=== PATIENT | male | born 1965 | race Caucasian/White ===

== ENCOUNTER 2019-03-20 11:56 | Observation (INO) ==
[2019-03-20] MEDS ORDERED: PIPERACILL/TAZOBAC CONSULT ACTIVE PRN ×2 (12:44→16:54)
[2019-03-20] MEDS ORDERED: VANCOMYCIN CONSULT ACTIVE PRN ×2 (12:44→17:56)
[2019-03-20] MEDS ORDERED: SODIUM CHLORIDE 0.9% 1000ML 1,000 ML IV ONE (12:44)
[2019-03-20] MEDS ORDERED: VANCOMYCIN HCL 2,750 MG in SODIUM CHLORIDE 0.9% 500 ML IV ONE ×2 (12:44→18:00)
[2019-03-20] MEDS ORDERED: PIPERACILLIN/TAZOBACTAM 4.5 GM/120 ML BAG IV ONE (12:44)
--- NOTE | 2019-03-20 13:12 | XRay Report ---
XR chest 1V portable HISTORY: Sepsis COMPARISON: None. FINDINGS: The lungs are clear. Cardiac silhouette is normal in size. No pleural effusions. No pneumot horax. IMPRESSION: No acute process. Electronically signed by: Keith Dunham M.D. 03/20/2019 1:11 PM
[2019-03-20 13:14] LABS: Basophils # (auto) 0.06 K/uL (0-0.2); Basophils % (auto) 0.7 %; Eosinophils # (auto) 0.12 K/uL (0-0.5); Eosinophils % (auto) 1.4 %; Hematocrit (blood only) 42.1 % (42-52); Hemoglobin 13.8 g/dL (14.0-18.0); Immature Granulocytes # (auto) 0.02 K/uL (0.00-0.02); Immature Granulocytes % (auto) 0.2 %; Lymphocytes # (auto) 2.11 K/uL (1.2-3.4); Lymphocytes % (auto) 25.5 %; Mean Corpuscular Hgb Conc 32.8 g/dL (32-36); Mean Corpuscular Volume 83.2 fL (80-100); Mean Platelet Volume 9.6 fL (7.4-10.4); Monocytes # (auto) 0.51 K/uL (0.11-0.59); Monocytes % (auto) 6.2 %; Neutrophils # (auto) 5.47 K/uL (1.4-6.5); Platelet Count 225 K/uL (130-400); RDW Coefficient of Variation 13.6 % (11.5-14.5); RDW Standard Deviation 41.1 fL (36.4-46.3); Red Blood Count 5.06 M/uL (4.7-6.1); White Blood Count 8.29 K/uL (4.8-10.8)
[2019-03-20 13:23] LABS: Partial Thromboplastin Ratio 1.1; Partial Thromboplastin Time 30.9 Seconds (21.0-31.0); Prothrombin Time 9.9 Seconds (9.0-12.0)
[2019-03-20 13:38] LABS: Albumin Level 3.7 gm/dl (3.4-5.0); BUN Creatinine Ratio 9.9 (10-20); Calcium 9.4 mg/dl (8.5-10.1); Creatinine Clr Calc Pharmacy 116.6 ml/min; Est GFR (African American) 86.2; Est GFR (Non-African American) 74.4; Magnesium 2.3 mg/dl (1.8-2.4); Potassium 4.5 mmol/L (3.5-5.1)
[2019-03-20 13:41] LABS: Albumin Globulin Ratio 0.8 (0.9-2); Bilirubin,Total 0.4 mg/dl (0.2-1); Globulin 4.5 gm/dl (2.5-4.0); Phosphorus 3.6 mg/dl (2.5-4.9); Total Protein 8.2 gm/dl (6.4-8.2)
[2019-03-20 13:45] LABS: Appearance Urine Clear (Clear); Bilirubin Urine Negative (Negative); Blood Urine Negative (Negative); Color Urine Yellow; Glucose Urine UA Negative (Negative); Ketones Urine Negative (Negative); Leukocyte Esterase Urine Negative (Negative); Nitrite Urine Negative (Negative); Protein Urine Negative (Negative); Specific Gravity Urine 1.017 (1.000-1.030); Urobilinogen Urine Negative (Negative)
[2019-03-20] MEDS ORDERED: OPTIRAY 320 125ml IV PRN (14:04)
--- NOTE | 2019-03-20 14:28 | CT Scan Report ---
CT SCAN OF THE ABDOMEN AND PELVIS WITH IV CONTRAST CLINICAL HISTORY: Lower abdominal swelling and induration. COMPARISON STUDY: No priors. TECHNIQUE: Following the IV administration of 117 cc of Optiray 320, CT scan of the abdomen and pelv is is performed from the lung bases to the proximal femora. Images are reviewed in the axial, sagitta l, and coronal planes. IV contrast was administered without complication. A dose lowering technique w as utilized adhering to the principles of ALARA. The examination is degraded by large body habitus, a nd by streak artifact from the body wall abutting the CT gantry. CT DOSE: 1791.20 mGy.cm FINDINGS: Lung bases: The heart is normal in size and without pericardial effusion. The lung bases are clear. T here is a small hiatal hernia. Liver: The contrast-enhanced liver is normal in size, contour, and attenuation. There is no intrahepa tic biliary ductal dilatation. The hepatic veins and portal veins are patent. Gallbladder: Unremarkable. Spleen: Normal in size and attenuation. Pancreas: Unremarkable. Adrenal glands: Unremarkable. Kidneys: The contrast enhanced kidneys are normal in size and without hydronephrosis. The kidneys enh ance symmetrically. Abdominal vasculature: The abdominal aorta is normal in course and caliber. Bowel: The small bowel and colon are normal in course and caliber. The appendix is normal as imaged. Peritoneum: There is no intraperitoneal free air or abdominal ascites. There is a small fat-containin g umbilical hernia. Lymphadenopathy: None. Pelvic viscera: The bladder, prostate, and seminal vesicles are normal as visualized. Skeletal structures: No lytic or blastic lesions are seen. Soft tissues: There is dermal thickening identified within the lower abdominal pannus, right greater than left with associated inflammatory change in the underlying fat. There is phlegmonous change iden tified at the dural surface on the right which measures up to 1.0 cm in thickness. No organized fluid collection is seen to suggest abscess. IMPRESSION: 1. There are no acute infectious or inflammatory findings in the abdomen or pelvis. 2. Findings suggest cellulitis of the lower abdominal pannus, with phlegmonous change on the right. C linical correlation will be required. 3. No organized fluid collection is seen to indicate abscess. Electronically signed by: Seth Valentin M.D. 03/20/2019 2:27 PM
--- NOTE | 2019-03-20 15:48 | Emergency Department Note ---
Entered by Palak Vazquez acting as a scribe for Tyrese Vasquez MD History of Present Illness General Chief complaint: Infection Stated complaint: BACTERIAL INFECTION Time Seen by Provider: 03/20/19 12:07 Source: patient and family History of Present Illness Onset (ago): day(s) 10 Location: abdomen Radiation: abdomen (Across his adbomen towards his back) Quality: + other (infection ) Relieved By: not by medication (Clendomyocin; Tylenol) Associated symptoms: + fever/chills (Postive fever; negative chills) and + other (Postiive chills) The patient is a 53 year old male who presents to the Emergency Room with complaints of an infection on his abdomen that started 10 days ago. The patient states that 10 days ago he had a pimple on his abdomen however it has become enlarged. He was placed on Bactrim. The patient's states that 4 days ago the pimple enlarged to the size of a softball and the patient had a fever of 100.2 F with chills. The patient went to the emergency room where he received treatment, drainage and blood culture. The patient's states that less than 12 hours later the infection site enlarged from a size of a softball to an enlarged area that went from his left abdomen to his back. The patient's states that they went to emergency room again and the pimple was drained. The patient was given IV ceftriaxone and discharged on clindamycin.The patient's states that for 3-6 hours the infection did not spread and didn't seem to be getting worse. The patient's states that yesterday the patint's temperature was 100.4. The patient's states that today the patient tempera ture is 99 F and the infected area is red. The patient's states that also today skin came off. The patient denies a history of diabetes or cholesterol. Home Medications Home Medications Medication Instructions Recorded Confirmed Type acetaminophen [Tylenol Extra 1,000 mg PO Q6H PRN 03/20/19 03/20/19 History Strength] albuterol sulfate HFA 90 2 puffs INH Q6H PRN 03/20/19 03/20/19 History mcg/actuation aerosol inhaler cephalexin 500 mg capsule 500 mg PO TID 03/20/19 03/20/19 History cetirizine 10 mg capsule 10 mg PO HS 03/20/19 03/20/19 History clindamycin HCl 300 mg capsule 300 mg PO Q6H 03/20/19 03/20/19 History fluticasone propionate [Flovent 2 inh INHALATION BID 03/20/19 03/20/19 History HFA] melatonin 5 mg PO HS 03/20/19 03/20/19 History mometasone 2 spray INTRANASAL QAM 03/20/19 03/20/19 History montelukast 10 mg tablet 10 mg PO DAILY 03/20/19 03/20/19 History verapamil 120 mg PO DAILY 03/20/19 03/20/19 History Allergies Allergy/AdvReac Type Severity Reaction Status Date / Time aspirin AdvReac Severe THINS Verified 03/20/19 10:46 BLOOD/ HX VON WILLEBRAND'S Past Med/Surg History Medical History History of varicose veins of lower extremity (Chronic) [address] [facility] - Dr Cain Von Willebrand disease (Chronic) Environmental allergies (Chronic) Asthma (Chronic) Paroxysmal SVT (supraventricular tachycardia) (Chronic) Acquired von Willebrand disease (Chronic) Allergy-induced asthma (Chronic) SVT (supraventricular tachycardia) (Chronic) Surgical History History of inguinal hernia repair, bilateral (Chronic) 1964 Status post bilateral hernia repair (Chronic) Family History Mother Lymphoma Grandmother (Maternal) Stroke Father Diabetes Social History Preferred Language: Slovenian Communication Ability: Effective Visual Impairment: Limited Hearing Ability: Normal Pillow Cleaner Required: No Beliefs That Will Affect Care: None marital status: Current Living Situation: Family current occupational status: employed Other Information That Helps Us Care for You: No Feels Safe at Home: Yes Safety Concerns: Feels Safe At This Time Smoking Status: Never smoker Hx Alcohol Use: Yes Alcohol type: wine Alcohol Intake Frequency: Holidays/Special Occasions Hx Substance Use: No Review of Systems See HPI for pertinent positives & negatives. and A total of 10 systems reviewed and were otherwise negative Physical Exam Vital Signs Vital Signs - 24 hr 08/01/19 12:01 03/20/19 13:09 03/20/19 13:56 Temperature 36.7 C Temperature Source Oral Sepsis Recent Fever Within 48 Hours No Sepsis Action Taken by Nursing No Action Required Pulse Rate 60 Pulse Rate [Apical] 87 Pulse Rhythm Regular Pulse Strength Normal Respiratory Rate 18 16 Respiratory Effort / Characteristics Non-Labored Respiratory Depth Normal Respiratory Pattern Regular Blood Pressure 156/85 H Blood Pressure [Left Arm] 136/82 Blood Pressure Mean 108 Blood Pressure Mean [Left Arm] 100 Blood Pressure Position Sitting Pulse Oximetry 100 98 97 Oxygen Delivery Method Room Air Room Air Room Air 03/20/19 15:40 Temperature Temperature Source Sepsis Recent Fever Within 48 Hours Sepsis Action Taken by Nursing Pulse Rate Pulse Rate [Apical] 56 L Pulse Rhythm Pulse Strength Respiratory Rate 17 Respiratory Effort / Characteristics Respiratory Depth Respiratory Pattern Blood Pressure Blood Pressure [Left Arm] 134/84 Blood Pressure Mean Blood Pressure Mean [Left Arm] 100 Blood Pressure Position Pulse Oximetry 99 Oxygen Delivery Method Room Air GENERAL: Awake, alert, well-appearing, in no distress. BMI is 42.7kg/m. HENT: Normocephalic, atraumatic. Oropharynx with dry mucous membranes and otherwise unremarkable. EYES: Normal conjunctiva. Sclera non-icteric. NECK: Supple. No nuchal rigidity. FROM. No JVD. RESPIRATORY: CTAB. CARDIAC: Regular rate, normal rhythm. Extremities warm and well perfused. Pulses equal. ABDOMEN: Soft, non-distended. No tenderness to palpation. No rebound or guarding. Diffuse erythema and warmth across his lower pannus with a central region of induration with smaller 1 cm area of fluctuance with punctate orifice with serous discharge. : Normal external genitalia. RECTAL: Deferred. MUSCULOSKELETAL: Chest examination reveals no tenderness. The back is symmetrical on inspection without obvious abnormality. There is no CVA tenderness to palpation. No joint edema. LOWER EXTREMITIES: Calves are equal size bilaterally and non-tender. No edema. No discoloration. NEURO: Normal sensorium. No sensory or motor deficits noted. SKIN: Warm and dry. No jaundice noted. Course 1237: Past medical records reviewed. The patient was evaluated in room A9. A complete history and physical exam was performed. 1450: I reviewed the patient's case with Dr. [facility]. She will evaluate the patient for further management. Consultations Consultation #1: [facility] will evaluate the patient for further management. Time: 14:50 Administered Medications Acetaminophen (Tylenol) 650 mg PO Q4H PRN PRN Reason: Pain or Fever Stop: 04/19/19 16:48 Last Admin: 03/20/19 17:35 Dose: 650 mg Documented by: [id number] Discontinued Medications Piperacillin Sod/Tazobactam Sod (Zosyn) 4.5 gm in 120 mls @ 240 mls/hr IV NOW ONE Stop: 03/20/19 13:13 Last Infusion: 03/20/19 13:55 Dose: 0 mls/hr Documented by: [id number] Admin: 03/20/19 13:22 Dose: 240 mls/hr Documented by: [id number] Sodium Chloride (Nss 1000ml) 1,000 mls @ 999 mls/hr IV .Q1H1M ONE Stop: 03/20/19 13:44 Last Infusion: 03/20/19 14:26 Dose: 0 mls/hr Documented by: [id number] Admin: 03/20/19 13:22 Dose: 999 mls/hr Documented by: [id number] Vancomycin HCl 2,750 mg/ (Sodium Chloride) 555 mls @ 200 mls/hr IV NOW ONE; Protocol Stop: 03/20/19 15:30 Last Infusion: 03/20/19 17:10 Dose: 0 mls/hr Documented by: [id number] Admin: 03/20/19 14:15 Dose: 200 mls/hr Documented by: [id number] Piperacillin Sod/Tazobactam (Sod 4.5 gm/ Dextrose) 120 mls @ 30 mls/hr IV Q8H [facility]; Protocol Stop: 03/30/19 17:59 Last Infusion: 03/20/19 18:06 Dose: 0 mls/hr Documented by: [id number] Admin: 03/20/19 17:51 Dose: 30 mls/hr Documented by: [id number] Ioversol (Optiray 320 125ml) 117 ml IV ONCE PRN PRN Reason: Interaction Checking Stop: 03/24/19 14:03 Last Admin: 03/20/19 14:05 Dose: 117 ml Documented by: [id number] Medical Decision Making Differential Diagnosis Differential diagnosis includes: cellulitis, abscess, MRSA infection, DVT, necrotizing fasciitis, dermatitis, drug eruption, as well as others were entertained. Medical Records Attestation: I reviewed the patient's medical records. Home Medications Current Medication List: was personally reviewed by me Laboratory Data Attestation: I reviewed the patient's lab results. Result diagrams: 03/20/19 12:52 03/20/19 12:52 Lab Results 03/20/19 03/20/19 03/20/19 Range/Units 12:52 12:52 12:52 WBC 8.29 (4.8-10.8) K/uL RBC 5.06 (4.7-6.1) M/uL Hgb 13.8 L (14.0-18.0) g/dL Hct 42.1 (42-52) % MCV 83.2 (80-100) fL MCH 27.3 (25-34) pg MCHC 32.8 (32-36) g/dL RDW Std Deviation 41.1 (36.4-46.3) fL RDW Coeff of Leonardo 13.6 (11.5-14.5) % Plt Count 225 (130-400) K/uL MPV 9.6 (7.4-10.4) fL Immature Gran % (Auto) 0.2 % Neut % (Auto) 66.0 % Lymph % (Auto) 25.5 % [place] % (Auto) 6.2 % Eos % (Auto) 1.4 % Baso % (Auto) 0.7 % Immature Gran # (Auto) 0.02 (0.00-0.02) K/uL Neut # (Auto) 5.47 (1.4-6.5) K/uL Lymph # (Auto) 2.11 (1.2-3.4) K/uL [place] # (Auto) 0.51 (0.11-0.59) K/uL Eos # (Auto) 0.12 (0-0.5) K/uL Baso # (Auto) 0.06 (0-0.2) K/uL PT 9.9 (9.0-12.0) Seconds INR 1.0 (0.9-1.1) APTT 30.9 (21.0-31.0) Seconds PTT Ratio 1.1 Sodium 139 (136-145) mmol/L Potassium 4.5 (3.5-5.1) mmol/L Chloride 108 H (98-107) mmol/L Carbon Dioxide 26 (21-32) mmol/L Anion Gap 5.0 (3-11) BUN 11 (7-18) mg/dl Creatinine 1.11 (0.6-1.4) mg/dl Est Cr Clr Drug Dosing 116.6 ml/min Est GFR ( Amer) 86.2 Est GFR (Non-Af Amer) 74.4 BUN/Creatinine Ratio 9.9 L (10-20) Glucose 101 H (70-99) mg/dl Lactate (0.4-2.0) mmol/L Calcium 9.4 (8.5-10.1) mg/dl Phosphorus 3.6 (2.5-4.9) mg/dl Magnesium 2.3 (1.8-2.4) mg/dl Total Bilirubin 0.4 (0.2-1) mg/dl AST 18 (15-37) U/L ALT 26 (12-78) U/L Alkaline Phosphatase 60 (45-117) U/L Total Protein 8.2 (6.4-8.2) gm/dl Albumin 3.7 (3.4-5.0) gm/dl Globulin 4.5 H (2.5-4.0) gm/dl Albumin/Globulin Ratio 0.8 L (0.9-2) Urine Color Urine Appearance (Clear) Urine pH (4.5-7.5) Ur Specific [place] (1.000-1.030) Urine Protein (Negative) Urine Glucose (UA) (Negative) Urine Ketones (Negative) Urine Blood (Negative) Urine Nitrite (Negative) Urine Bilirubin (Negative) Urine Urobilinogen (Negative) Ur Leukocyte Esterase (Negative) Hepatitis C Ab Screen (Neg) 03/20/19 03/20/19 03/20/19 Range/Units 12:52 12:52 13:20 WBC (4.8-10.8) K/uL RBC (4.7-6.1) M/uL Hgb (14.0-18.0) g/dL Hct (42-52) % MCV (80-100) fL MCH (25-34) pg MCHC (32-36) g/dL RDW Std Deviation (36.4-46.3) fL RDW Coeff of Leonardo (11.5-14.5) % Plt Count (130-400) K/uL MPV (7.4-10.4) fL Immature Gran % (Auto) % Neut % (Auto) % Lymph % (Auto) % [place] % (Auto) % Eos % (Auto) % Baso % (Auto) % Immature Gran # (Auto) (0.00-0.02) K/uL Neut # (Auto) (1.4-6.5) K/uL Lymph # (Auto) (1.2-3.4) K/uL [place] # (Auto) (0.11-0.59) K/uL Eos # (Auto) (0-0.5) K/uL Baso # (Auto) (0-0.2) K/uL PT (9.0-12.0) Seconds INR (0.9-1.1) APTT (21.0-31.0) Seconds PTT Ratio Sodium (136-145) mmol/L Potassium (3.5-5.1) mmol/L Chloride (98-107) mmol/L Carbon Dioxide (21-32) mmol/L Anion Gap (3-11) BUN (7-18) mg/dl Creatinine (0.6-1.4) mg/dl Est Cr Clr Drug Dosing ml/min Est GFR ( Amer) Est GFR (Non-Af Amer) BUN/Creatinine Ratio (10-20) Glucose (70-99) mg/dl Lactate 0.9 (0.4-2.0) mmol/L Calcium (8.5-10.1) mg/dl Phosphorus (2.5-4.9) mg/dl Magnesium (1.8-2.4) mg/dl Total Bilirubin (0.2-1) mg/dl AST (15-37) U/L ALT (12-78) U/L Alkaline Phosphatase (45-117) U/L Total Protein (6.4-8.2) gm/dl Albumin (3.4-5.0) gm/dl Globulin (2.5-4.0) gm/dl Albumin/Globulin Ratio (0.9-2) Urine Color Yellow Urine Appearance Clear (Clear) Urine pH 5.0 (4.5-7.5) Ur Specific [place] 1.017 (1.000-1.030) Urine Protein Negative (Negative) Urine Glucose (UA) Negative (Negative) Urine Ketones Negative (Negative) Urine Blood Negative (Negative) Urine Nitrite Negative (Negative) Urine Bilirubin Negative (Negative) Urine Urobilinogen Negative (Negative) Ur Leukocyte Esterase Negative (Negative) Hepatitis C Ab Screen Neg (Neg) Imaging Data Radiologist's Impression: Radiology results as stated below per my review and the radiologist's interpretation: XR chest 1V portable HISTORY: Sepsis COMPARISON: None. FINDINGS: The lungs are clear. Cardiac silhouette is normal in size. No pleural effusions. No pneumothorax. IMPRESSION: No acute process. Electronically signed by: Keith Dunham M.D. 03/20/2019 1:[address] SCAN OF THE ABDOMEN AND PELVIS WITH IV CONTRAST CLINICAL HISTORY: Lower abdominal swelling and induration. COMPARISON STUDY: No priors. TECHNIQUE: Following the IV administration of 117 cc of Optiray 320, CT scan of the abdomen and pelvis is performed from the lung bases to the proximal femora. Images are reviewed in the axial, sagittal, and coronal planes. IV contrast was administered without complication. A dose lowering technique was utilized adhering to the principles of ALARA. The examination is degraded by large body habitus, and by streak artifact from the body wall abutting the CT gantry. CT DOSE: 1791.20 mGy.cm FINDINGS: Lung bases: The heart is normal in size and without pericardial effusion. The lung bases are clear. There is a small hiatal hernia. Liver: The contrast-enhanced liver is normal in size, contour, and attenuation. There is no intrahepatic biliary ductal dilatation. The hepatic veins and portal veins are patent. Gallbladder: Unremarkable. Spleen: Normal in size and attenuation. Pancreas: Unremarkable. Adrenal glands: Unremarkable. Kidneys: The contrast enhanced kidneys are normal in size and without hydronephrosis. The kidneys enhance symmetrically. Abdominal vasculature: The abdominal aorta is normal in course and caliber. Bowel: The small bowel and colon are normal in course and caliber. The appendix is normal as imaged. Peritoneum: There is no intraperitoneal free air or abdominal ascites. There is a small fat-containing umbilical hernia. Lymphadenopathy: None. Pelvic viscera: The bladder, prostate, and seminal vesicles are normal as visualized. Skeletal structures: No lytic or blastic lesions are seen. Soft tissues: There is dermal thickening identified within the lower abdominal pannus, right greater than left with associated inflammatory change in the underlying fat. There is phlegmonous change identified at the dural surface on the right which measures up to 1.0 cm in thickness. No organized fluid collection is seen to suggest abscess. IMPRESSION: 1. There are no acute infectious or inflammatory findings in the abdomen or pelvis. 2. Findings suggest cellulitis of the lower abdominal pannus, with phlegmonous change on the right. Clinical correlation will be required. 3. No organized fluid collection is seen to indicate abscess. Electronically signed by: Seth Valentin M.D. 03/20/2019 2:27 PM ECG Data Attestation: I personally reviewed and interpreted this ECG as follows: Indication: other (infection) Rate (beats per minute): 58 Rhythm: sinus bradycardia Findings: + other (LVH); no acute ischemic change Blood Pressure Blood Pressure Findings: Normal blood pressure MDM Narrative The patient is a pleasant 51-year-old gentleman with a past medical history of hypertension and von Willebrand's who presents emergency department with persistent cellulitis of his lower abdomen/pannus in the setting of completing course of Bactrim and recently seen in outside hospital ED treated with ceftriaxone followed by initiating course of clindamycin per hpi. The patient reports that he had a incision drainage of a small pustule/abscess on his prior visit to the outside hospital which I was able to view on the hospital portal on the patient's phone which reported MSSA. However, the patient reports no significant improvement in his abdominal wall cellulitis. The patient was seen at the wound clinic today for second opinion and was referred to emergency de partment for evaluation. On arrival patient is no acute distress, afebrile stable vital signs. On exam patient has extensive erythema and warmth to his lower abdomen/pannus with 15 cm region of induration with 1 cm central pustule with punctate orifice with serous drainage. There is no crepitus. No extension into the region. WBC within normal limits. Chemistry without acidosis. CT abdomen pelvis negative for intra-abdominal process or subcutaneous fluid collection. Rather phlegmonous change is appreciated consistent with the patient's abdominal wall cellulitis on exam. Blood cultures were drawn. The patient was treated empirically upon arrival with vancomycin and Zosyn given his failed outpatient treatment/[id number] despite having seemingly appropriate antibiotic coverage per his cultures. Patient is agreeable for admission. Case was discussed with Kayla Garcia [facility] PAC, who evaluate the patient for admission. Impression & Plan Cellulitis, abdominal wall, Von Willebrand disease, Cellulitis and abscess of other specified site Critical Care Time Critical Care Time: Yes Total Critical Care Time: 35 I have personally spent greater than 35 minutes of critical care time in the direct management of this patient. This includes bedside care, interpretation of diagnostic studies, and testing, discussion with consultants, patient, and family members, and other required patient management activities. This 35 minutes is in excess of all separately billable procedures. Discharge Plan Visit Data *Final* Discharge Date/Time: 03/20/19 16:29 Chief Complaint: Infection Stated Complaint: BACTERIAL INFECTION ED Provider: Tyrese Vasquez Discharge Problem: Cellulitis, abdominal wall, Von Willebrand disease, Cellulitis and abscess of other specified site Patient Disposition: Admitted As Inpatient Discharge Instructions Interventions: ED Discharge Assessment Last Done: 03/20/19 16:29 The scribe's documentation has been prepared under my direction and personally reviewed by me in its entirety. I confirm that the note above accurately reflects all work, treatment, procedures, and medical decision making performed by me.
--- NOTE | 2019-03-20 15:54 | History & Physical Report ---
Date of Service March 20, 2019 Assessment & Plan (1) Cellulitis, abdominal wall: Pt presented to ER with progressive lower abdomen cellulitis. Reported began with pimple-like lesion to right lower abdomen with progressing surrounding cellulitis and associated fever 102F. Started Bactrim on 03/17/19. Reports seen at [place] [facility] on 03/18/2019 and had area I&D. Wound culture results: 4+ staph aureus, oxacillin sensitive. Preliminary blood cultures no growth, WBC 11. ( Patient able to pull up results on his phone from health records). Was discharged on clindamycin and Keflex. In ER pt afebrile, P: 76, R: 20, BP: 135/76. WBC: 8, H/H: 13.8/42, Lactate: 0.9 CT ABD/PELVIS WITH IV CONTRAST: 1. There are no acute infectious or inflammatory findings in the abdomen or pelvis. 2. Findings suggest cellulitis of the lower abdominal pannus, with phlegmonous change on the right. Clinical correlation will be required. 3. No organized fluid collection is seen to indicate abscess. -In ER give 1L NSS, zosyn, vancomycin -Blood cultures pending -Vancomycin -Wound nurse consult -Monitor CBC, BMP -If worsening consider surgery consult (2) Paroxysmal SVT (supraventricular tachycardia): -Continue Verapamil (3) Von Willebrand disease: No active bleeding (4) Asthma: -Continue Flovent, Singulair. Continue Albuterol prn DVT Prophylaxis -SCDs Follows with Jennifer Pickett PA-C in [place], [place] for routine care Pt was seen and care coordinated with Dr Dsouza. See addendum History of Present Illness Chief Complaint: Abdominal redness Primary Care Provider: Jennifer Lopez PA-C Pt is 53 y/o M with PMH von Willebrand's, asthma, allergies, paroxysmal SVT presented to ER with complaint of abdominal redness. Patient reports 5 days ago noticed a pimple-like lesion to right lower abdomen and following day he noticed some surrounding redness. States prior to this had sunburn to abdomen and legs. Reports followed up with PCP and was started on Bactrim on 03/17/2019. He reports fever of 102 F on 03/17/2019 and fever of 100.4 F on 03/19/2019, denies any noted fever today. Patient states has had progressive spreading of erythema to entire lower abdomen with tenderness to palpation. Denies deep abdominal discomfort. Patient reports being seen at [place] ER on 03/18/2019 and had area I&D. Patient able to pull up wound culture results on his cell phone from medical records: 4+ staph aureus, oxacillin sensitive. Preliminary blood cultures no growth, WBC 11. Patient reports was given Rocephin and was discharged on clindamycin and Keflex. Patient reports today packing had fallen out of wound. Patient reports following up with wound clinic here in [place] and was referred to ER today. Reports was taking magnesium for leg muscle cramps and started with some loose stools so stopped taking last week. Pt [place] to being in [place] 2 weeks ago. Has hot tub at home and uses frequently. Denies diaphoresis, N/V/C, JAVIER, dizziness, syncope, vision changes, neck pain, CP, SOB, orthopnea, palpitations, cough, sore throat, choking, otalgia, rhinorrhea, paresthesias, weakness, extremity edema, other rashes, urinary symptoms. 03/18/19 wound culture from [facility]: 4+ staph aureus, oxacillin sensitive Clindamycin < 0.25 Sensitive Gentamicin <4 Sensitive Oxacillin <0.25 Sensitive Tetracycline <4 Sensitive Vancomycin 1 Sensitive Linezolid 2 Sensitive TMP-SMZ <0.5/9.5 Sensitive Ceftaroline <0.5 Sensitive Allergies Allergy/AdvReac Type Severity Reaction Status Date / Time aspirin AdvReac Severe THINS Verified 03/20/19 10:46 BLOOD/ HX VON WILLEBRAND'S Home Medications Home Medications Medication Instructions Recorded Confirmed Type acetaminophen [Tylenol Extra 1,000 mg PO Q6H PRN 03/20/19 03/20/19 History Strength] albuterol sulfate HFA 90 2 puffs INH Q6H PRN 03/20/19 03/20/19 History mcg/actuation aerosol inhaler cephalexin 500 mg capsule 500 mg PO TID 03/20/19 03/20/19 History cetirizine 10 mg capsule 10 mg PO HS 03/20/19 03/20/19 History clindamycin HCl 300 mg capsule 300 mg PO Q6H 03/20/19 03/20/19 History fluticasone propionate [Flovent 2 inh INHALATION BID 03/20/19 03/20/19 History HFA] melatonin 5 mg PO HS 03/20/19 03/20/19 History mometasone 2 spray INTRANASAL QAM 03/20/19 03/20/19 History montelukast 10 mg tablet 10 mg PO DAILY 03/20/19 03/20/19 History verapamil 120 mg PO DAILY 03/20/19 03/20/19 History Past Med/Surg History Medical History History of varicose veins of lower extremity (Chronic) 2009 surgery at [facility] Dr Cain Von Willebrand disease (Chronic) Environmental allergies (Chronic) Asthma (Chronic) Paroxysmal SVT (supraventricular tachycardia) (Chronic) Acquired von Willebrand disease (Chronic) Allergy-induced asthma (Chronic) SVT (supraventricular tachycardia) (Chronic) Surgical History History of inguinal hernia repair, bilateral (Chronic) 1964 Status post bilateral hernia repair (Chronic) Family History Mother Lymphoma Grandmother (Maternal) Stroke Father Diabetes Social History Preferred Language: Mohawk Communication Ability: Effective Visual Impairment: Limited Hearing Ability: Normal Mental Health Associate Required: No Beliefs That Will Affect Care: None marital status: Current Living Situation: Family current occupational status: employed Other Information That Helps Us Care for You: No Feels Safe at Home: Yes Safety Concerns: Feels Safe At This Time Smoking Status: Never smoker Hx Alcohol Use: Yes Alcohol type: wine Alcohol Intake Frequency: Holidays/Special Occasions Hx Substance Use: No Review of Systems Review of Systems: All systems reviewed & are unremarkable except as noted in HPI & below Physical Exam Physical Exam: General: no acute distress, obese Head: normocephalic, atraumatic Eyes: PERRL, EOM's intact, conjunctiva non-injected, anicteric ENT: normal inspection external ears, nose, mucous membranes moist Neck: supple, trachea midline Lungs: clear, no respiratory distress, no wheezing/rhonchi/rales CV: RRR, no murmur, no pretibial edema Abd: normal BS, soft, protuberant, lower abdomen with erythema and warmth extending from right flank across RLQ to LLQ and up to umbilicus, right lower abdomen with I&D site with induration and slight serosanguineous discharge, mild tenderness to palpation over erythema sites, greatest dimension is approx 50cm x 21 cm (marked with skin marker) no other abdominal tenderness to palpation Ext: +brown skin discoloration bilateral lower legs, no calf tenderness Neuro: A&O x 3, no focal deficits noted, normal affect Skin: warm, dry, abdomen as above Results & Data Vital Signs (Past 12 Hours) Vital Signs Temp Pulse Pulse Resp BP BP Pulse Ox 03/20/19 15:40 56 L 17 134/84 99 03/20/19 13:56 87 16 136/82 97 03/20/19 13:09 98 03/20/19 12:01 36.7 C 60 18 156/85 H 100 Laboratory Results Short CBC 03/20/19 Range/Units 12:52 WBC 8.29 (4.8-10.8) K/uL Hgb 13.8 L (14.0-18.0) g/dL Hct 42.1 (42-52) % Plt Count 225 (130-400) K/uL BMP 03/20/19 12:52 Sodium 139 Potassium 4.5 Chloride 108 H Carbon Dioxide 26 BUN 11 Creatinine 1.11 Glucose 101 H Calcium 9.4 Liver Function 03/20/19 Range/Units 12:52 Total Bilirubin 0.4 (0.2-1) mg/dl AST 18 (15-37) U/L ALT 26 (12-78) U/L Alkaline Phosphatase 60 (45-117) U/L Albumin 3.7 (3.4-5.0) gm/dl Urine 03/20/19 Range/Units 13:20 Urine Color Yellow Urine Appearance Clear (Clear) Urine pH 5.0 (4.5-7.5) Ur Specific Commodore 1.017 (1.000-1.030) Urine Protein Negative (Negative) Urine Glucose (UA) Negative (Negative) Diagnostic Findings CT ABD/PELVIS WITH IV CONTRAST: IMPRESSION: 1. There are no acute infectious or inflammatory findings in the abdomen or pelvis. 2. Findings suggest cellulitis of the lower abdominal pannus, with phlegmonous change on the right. Clinical correlation will be required. 3. No organized fluid collection is seen to indicate abscess. CXR: IMPRESSION: No acute process. Supervising Physician Co-Signing Physician Notes HISTORY: Record reviewed. Patient interviewed and examined in his room around 19:30. Care coordinated with Mindy Delgado PA-C. Please refer to her documentation for patient's history. Briefly, 40-year-old male with worsening abdominal cellulitis despite outpatient therapy with oral antibiotics. EXAM: General- no distress Lungs- clear to auscultation; no respiratory distress Cardiovascular- RRR; no murmur; no gallop; no JVD; no pretibial edema Abdomen- + bowel sounds, soft, nontender Extremities- no cyanosis; no calf tenderness Neuro- alert, oriented Skin-open wound lower abdomen with surrounding induration and extensive erythema extending across lower abdomen DATA: Gram stain of wound obtained at [facility] in [place] demonstrated WBCs and clusters of gram-positive cocci. Wound culture grew Staphylococcus aureus, sensitive to oxacillin, TMP/sulfa, doxycycline, clindamycin. WBC 8290. Other lab studies as noted. Chest x-ray did not show any acute process. CT of abdomen suggested cellulitis of lower abdominal pannus with phlegmonous changes of the right, no discrete abscess. ASSESSMENT AND PLAN: Cellulitis lower abdomen, worsening despite oral therapy with clindamycin and cephalexin. Treated initially with intravenous vancomycin and cefepime pending repeat cultures and input from ID and Wound Clinic. History of von Willebrand's disease. DDAVP to be administered before any invasive procedures. Please refer to RENAN Garcia's documentation for discussion of other issues.
[2019-03-20] MEDS ORDERED: ALBUTEROL HFA 8 GM INHALER INH PRN (16:49)
[2019-03-20] MEDS: ACETAMINOPHEN 325 MG TAB PO PRN (17:35)
[2019-03-20] MEDS ORDERED: PIPERACILLIN/TAZOBACTAM 4.5 GM in DEXTROSE 5% 100 ML IV SCH (18:00)
[2019-03-20] MEDS: CEFEPIME 2,000 MG in SYRINGE 7.5 ML IV SCH (20:30)
[2019-03-20] MEDS: CETIRIZINE HCL 10 MG TABLET PO SCH (20:35)
[2019-03-20] MEDS: FLUTICASONE HFA 110MCG INHALER INH SCH (20:35)
[2019-03-20] MEDS ORDERED: NON-FORMULARY MEDICATION (Melatonin 5 MG) PO SCH (21:00)
[2019-03-21] MEDS ORDERED: VANCOMYCIN HCL 1,750 MG in SODIUM CHLORIDE 0.9% 500 ML IV SCH (02:00)
[2019-03-21] MEDS: FLUTICASONE PROPIONATE NA SPR 16 GM BTL NAE SCH (07:48)
[2019-03-21] MEDS: VERAPAMIL HCL 120 MG TABCR PO SCH (07:48)
[2019-03-21] MEDS: MONTELUKAST SODIUM 10 MG TABLET PO SCH (07:48)
[2019-03-21] MEDS: FLUTICASONE HFA 110MCG INHALER INH SCH ×2 (07:48→20:33)
[2019-03-21] MEDS: ACETAMINOPHEN 325 MG TAB PO PRN ×2 (07:50→12:59)
[2019-03-21] MEDS: CEFEPIME 2,000 MG in SYRINGE 7.5 ML IV SCH (07:51)
[2019-03-21 07:55] LABS: Hematocrit (blood only) 40.8 % (42-52); Hemoglobin 13.1 g/dL (14.0-18.0); Mean Corpuscular Hgb Conc 32.1 g/dL (32-36); Mean Corpuscular Volume 81.9 fL (80-100); Mean Platelet Volume 9.6 fL (7.4-10.4); Platelet Count 231 K/uL (130-400); RDW Coefficient of Variation 13.5 % (11.5-14.5); RDW Standard Deviation 40.6 fL (36.4-46.3); Red Blood Count 4.98 M/uL (4.7-6.1); White Blood Count 5.69 K/uL (4.8-10.8)
[2019-03-21 08:19] LABS: BUN Creatinine Ratio 9.8 (10-20); Creatinine Clr Calc Pharmacy 118.6 ml/min; Est GFR (African American) 88.1
--- NOTE | 2019-03-21 09:44 | Pharmacy Report ---
Pharmacy Abx Initial Consult - Date of Service March 21, 2019 - Pharmacy Dosing Scope Date of Consult: 03/20/19 Consultation requested by: Diann Garcia Pharmacy is consulted to initiate Vancomycin IV dosing therapy, order appropriate labs and adjust drug dose/frequency. Pt also ordered cefepime. - Subjective The patient is a 53 year old M admitted on 03/20/19 15:45. - Objective Height: 6 ft 2 in Weight: 150.4 kg Vital Signs (Past 12hrs): Vital Signs Temp Pulse Pulse Resp BP Pulse Ox 03/21/19 07:14 37.0 C 70 18 154/93 H 95 03/21/19 03:38 36.9 C 63 18 143/85 H 97 03/21/19 00:00 57 L 03/20/19 23:31 36.9 C 63 20 118/73 96 Lab Results (24hrs): Laboratory Tests (24 Hours) 03/21/19 03/21/19 03/20/19 07:23 07:23 12:52 WBC 5.69 Neut # (Auto) Creatinine 1.09 1.11 Est Cr Clr Drug Dosing 118.6 116.6 03/20/19 12:52 WBC 8.29 Neut # (Auto) 5.47 Creatinine Est Cr Clr Drug Dosing Micro Results: 03/20/19 12:52 Aerobic Blood Culture - Pending Blood Anaerobic Blood Culture - Pending 03/20/19 13:04 Aerobic Blood Culture - Pending Blood Anaerobic Blood Culture - Pending 03/18/19: I&D cultures = MSSA - Risk Factors for Resistance * Antimicrobial use within the last 90 days: Pt failed Bactrim (03/17/19) & Clinda + Keflex (03/18/19) - Assessment & Plan Assessment 53 year old M initiated on IV Vanco + Cefepime for abdominal wall cellulitis CrCl likely over-estimated secondary to morbid obesity. * In morbid obesity -vancomycin accumulation likely once steady state reached. Will dose on a lower mg/kg basis and adjust dosing conservatively Plan Vancomycin IV * Estimated PK Parameters: Vd 0.55 L/kg, Andre 0.092 hr-1, t1/2 7.5 hr * Loading dose: 2,750 mg (18 mg/kg) * Maintenance dose: 1,750 mg IV (11.6 mg/kg) every 12 hours * Goal trough level for SST : 10 to 20 mcg/mL depending on c/s * Trough level ordered for 03/22/19 @ 0130 (prior to 3rd maintenance dose) * This will NOT be steady state, as long as trough is 10mcg/ml or above dose will not need increased because level is likely to continue to rise with accumulation * A less than traditional dose and/or extended dosing interval has/have been selected due to likelihood of drug accumulation in obese patient Cefepime * Not per pharmacy consult but dosing is adequate * Ordered 2,000mg IV Q12hrs Pharmacy will continue to follow and will adjust dose/frequency as necessary. Thank you.
--- NOTE | 2019-03-21 12:14 | Infectious Disease Consult ---
Date of Consultation March 21, 2019 Assessment & Plan (1) Cellulitis, abdominal wall: previous culture grew MSSA, will change to rocephin for now, can d/c on po kelfex to continue prolonged, likely 21 day course. pt is planning to follow in wound center next week, will arrange for sun am visit to see ID as well. ok for d/c in next 24h if otherwise stable. History of Present Illness Attending Physician: Gabo Dsouza MD pt admitted from wound center (initial visit) due to abd wall cellulitis and abscess. was initially seen by pcp on Sunday due to pimple/infected tiffany follicle, given bactrim, worsened on Sunday, had fever, went to ER in [place], culture done, blood culture done, wound culture grew MSSA, blood cultures negative, reviewed culture via portal on pt phone. he was d/c on clinda and kelfex with referral to wound center. at bedside. they believe wound was improving yesterday, fever was resolved but referred to ER for admission, admitted and placed on IV vanco and cefepime, tolerating well. line drawn and much receded since ER presentation. no f/c. no pain, no drainage, wound care following here, plan to follow outpt next week. no n/v/d/abd pain, no cp, sob, cough. blood cultures pending, ct abd no abscess. wbc 5.6, ua negative, no gu symptoms. cxr negative. Allergies Allergy/AdvReac Type Severity Reaction Status Date / Time aspirin AdvReac Severe THINS Verified 03/20/19 10:46 BLOOD/ HX VON WILLEBRAND'S Home Medications Home Medications Medication Instructions Recorded Confirmed Type acetaminophen [Tylenol Extra 1,000 mg PO Q6H PRN 03/20/19 03/20/19 History Strength] albuterol sulfate HFA 90 2 puffs INH Q6H PRN 03/20/19 03/20/19 History mcg/actuation aerosol inhaler cephalexin 500 mg capsule 500 mg PO TID 03/20/19 03/20/19 History cetirizine 10 mg capsule 10 mg PO HS 03/20/19 03/20/19 History clindamycin HCl 300 mg capsule 300 mg PO Q6H 03/20/19 03/20/19 History fluticasone propionate [Flovent 2 inh INHALATION BID 03/20/19 03/20/19 History HFA] melatonin 5 mg PO HS 03/20/19 03/20/19 History mometasone 2 spray INTRANASAL QAM 03/20/19 03/20/19 History montelukast 10 mg tablet 10 mg PO DAILY 03/20/19 03/20/19 History verapamil 120 mg PO DAILY 03/20/19 03/20/19 History Patient History Medical History History of varicose veins of lower extremity (Chronic) 2009 surgery [address] [facility] [address] Cain Von Willebrand disease (Chronic) Environmental allergies (Chronic) Asthma (Chronic) Paroxysmal SVT (supraventricular tachycardia) (Chronic) Acquired von Willebrand disease (Chronic) Allergy-induced asthma (Chronic) SVT (supraventricular tachycardia) (Chronic) Surgical History History of inguinal hernia repair, bilateral (Chronic) 1964 Status post bilateral hernia repair (Chronic) Family History Mother Lymphoma Grandmother (Maternal) Stroke Father Diabetes Social History Preferred Language: Swazi Communication Ability: Effective Visual Impairment: Limited Hearing Ability: Normal Armature Winder Helper Repair Required: No Beliefs That Will Affect Care: None marital status: Current Living Situation: Family current occupational status: employed Feels Safe at Home: Yes Smoking Status: Never smoker Hx Alcohol Use: Yes Alcohol type: wine Alcohol Intake Frequency: Holidays/Special Occasions Hx Substance Use: No Review of Systems Review of Systems: All systems reviewed & are unremarkable except as noted in HPI & below Physical Exam Constitutional: WD/WN, vitals as above Eyes: PERRL, conjunctivae normal, anicteric sclerae ENMT: external ear and nose normal, oropharynx normal Neck: normal visual inspection Respiratory: normal respiratory effort, lungs clear to auscultation Cardiovascular: RRR, no murmur, no edema Gastrointestinal (Abdomen): normal bowel sounds, soft, nontender, no hepatosplenomegaly Musculoskeletal: no cyanosis or clubbing, extremities motor strength 5/5 Skin: no rashes, warm and dry abd wall with erythema diffuse, decreased from line drawn, non tender, min warmth, no drainage or bleeding, dressing intact Psychiatric: A+Ox3, euthymic affect Results & Data Vital Signs (Past 12 Hours) Vital Signs Temp Pulse Pulse Resp BP Pulse Ox 03/21/19 11:49 36.9 C 60 16 134/87 93 03/21/19 08:30 74 03/21/19 07:14 37.0 C 70 18 154/93 H 95 03/21/19 03:38 36.9 C 63 18 143/85 H 97 PG Care Time/CCT Total # of Minutes Spent Total Time Spent with Patient: Total time spent is greater than 50% in coordination of care (as documented) at patient's floor/unit and/or counseling patient:
[2019-03-21] MEDS: cefTRIAXone SODIUM 2,000 MG in DEXTROSE 5% 50 ML IV SCH (12:59)
--- NOTE | 2019-03-21 15:20 | Wound Consultation ---
Date of Consultation March 21, 2019 Assessment & Plan (1) Cellulitis, abdominal wall: Cellulitis is improving. No debridement was required. Wound was packed with Aquacel Ag wick and covered with Aquacel Ag. This can be changed every other day. Thank you for allowing me to participate in the care of this patient. Please not hesitate to call with any questions. Patient was seen in the office in 1 week. History of Present Illness Attending Physician: Gabo Dsouza MD This is a 53-year-old male with a history of von Willebrand's disease and SVT who was sent to the ER from the office with worsening abdominal cellulitis. Patient was admitted and placed on IV antibiotics. Allergies Allergy/AdvReac Type Severity Reaction Status Date / Time aspirin AdvReac Severe THINS Verified 03/20/19 10:46 BLOOD/ HX VON WILLEBRAND'S Home Medications Home Medications Medication Instructions Recorded Confirmed Type acetaminophen [Tylenol Extra 1,000 mg PO Q6H PRN 03/20/19 03/20/19 History Strength] albuterol sulfate HFA 90 2 puffs INH Q6H PRN 03/20/19 03/20/19 History mcg/actuation aerosol inhaler cephalexin 500 mg capsule 500 mg PO TID 03/20/19 03/20/19 History cetirizine 10 mg capsule 10 mg PO HS 03/20/19 03/20/19 History clindamycin HCl 300 mg capsule 300 mg PO Q6H 03/20/19 03/20/19 History fluticasone propionate [Flovent 2 inh INHALATION BID 03/20/19 03/20/19 History HFA] melatonin 5 mg PO HS 03/20/19 03/20/19 History mometasone 2 spray INTRANASAL QAM 03/20/19 03/20/19 History montelukast 10 mg tablet 10 mg PO DAILY 03/20/19 03/20/19 History verapamil 120 mg PO DAILY 03/20/19 03/20/19 History Patient History Medical History History of varicose veins of lower extremity (Chronic) 2009 surgery at [facility] - Dr Cain Von Willebrand disease (Chronic) Environmental allergies (Chronic) Asthma (Chronic) Paroxysmal SVT (supraventricular tachycardia) (Chronic) Acquired von Willebrand disease (Chronic) Allergy-induced asthma (Chronic) SVT (supraventricular tachycardia) (Chronic) Surgical History History of inguinal hernia repair, bilateral (Chronic) 1964 Status post bilateral hernia repair (Chronic) Family History Mother Lymphoma Grandmother (Maternal) Stroke Father Diabetes Social History Preferred Language: Pashto Communication Ability: Effective Visual Impairment: Limited Hearing Ability: Normal Student Education Specialist Required: No Beliefs That Will Affect Care: None marital status: Current Living Situation: Family current occupational status: employed Feels Safe at Home: Yes Smoking Status: Never smoker Hx Alcohol Use: Yes Alcohol type: wine Alcohol Intake Frequency: Holidays/Special Occasions Hx Substance Use: No Review of Systems Review of Systems: All systems reviewed & are unremarkable except as noted in HPI & below Physical Exam Skin: Wound measuring 2 x 2 x 1.1 cm. Periwound is erythematous. There is moderate drainage and foul odor. Neurologic: awake; not confused Psychiatric: A+Ox3, euthymic affect Results & Data Vital Signs (Past 12 Hours) Vital Signs Temp Pulse Pulse Resp BP Pulse Ox 03/21/19 15:06 36.4 C L 59 L 20 122/77 97 03/21/19 11:49 36.9 C 60 16 134/87 93 03/21/19 08:30 74 03/21/19 07:14 37.0 C 70 18 154/93 H 95 03/21/19 03:38 36.9 C 63 18 143/85 H 97
--- NOTE | 2019-03-21 19:29 | Hospitalist Progress Note ---
Date of Service March 21, 2019 Assessment & Plan (1) Cellulitis, abdominal wall: Worsening cellulitis lower abdominal wall despite outpatient management with appropriate antibiotics. No apparent abscess per CT imaging. Wound culture from [facility] in [place] grew staph aureus, MSSA. ID and Wound Care consulted. IV therapy with ceftriaxone recommended. No need for surgical drainage/debridement. (2) Paroxysmal SVT (supraventricular tachycardia): History of PSVT. Continue verapamil. (3) Asthma: Pulmonary status stable. (4) Von Willebrand disease: DDAVP prior to any invasive procedures. (5) DVT prophylaxis: No anticoagulants due to von Willebrand's disease. SCDs. Ambulate. (6) Discharge planning issues: Anticipated discharge to home. Primary Care follow-up with Jennifer Pickett PA-C. Follow-up with Wound Care Clinic. Subjective Recheck for abdominal cellulitis. Patient seen in their room around 16:10. visiting. Cellulitis seems to be a little better. No fever or chills. Still having loose stool. Seen earlier by ID and Wound Care. Review of Systems: Constitutional- no fever. Cardiac- no chest pain. Pulmonary- no cough or SOB. GI- no nausea, vomiting, melena, hematochezia. - no urinary symptoms. Otherwise, as noted above. Physical Exam Physical Exam: General- no distress Lungs- clear to auscultation; no respiratory distress Cardiovascular- RRR; no murmur; no gallop; no JVD; no pretibial edema Abdomen- + bowel sounds, soft, nontender Extremities- no cyanosis; no calf tenderness Neuro- alert, oriented Skin- extensive erythema extending across lower abdomen Results & Data Vital Signs (Past 12 Hours) Vital Signs Temp Pulse Pulse Resp BP Pulse Ox 03/21/19 18:42 36.5 C 54 L 20 117/75 97 03/21/19 15:45 58 L 03/21/19 15:06 36.4 C L 59 L 20 122/77 97 03/21/19 11:49 36.9 C 60 16 134/87 93 03/21/19 08:30 74 Laboratory Results Laboratory Results - last 24 hr 03/20/19 03/21/19 03/21/19 20:20 07:23 07:23 WBC 5.69 RBC 4.98 Hgb 13.1 L Hct 40.8 L MCV 81.9 MCH 26.3 MCHC 32.1 RDW Std Deviation 40.6 RDW Coeff of Leonardo 13.5 Plt Count 231 MPV 9.6 Sodium 143 Potassium 4.0 Chloride 112 H Carbon Dioxide 26 Anion Gap 5.0 BUN 11 Creatinine 1.09 Est Cr Clr Drug Dosing 118.6 Est GFR ( Amer) 88.1 Est GFR (Non-Af Amer) 76.0 BUN/Creatinine Ratio 9.8 L Glucose 89 Calcium 9.0 Stl C. diff Tox B Gene TNP Microbiology 03/20/19 13:04 Blood Aerobic Blood Culture - Preliminary No growth in Aerobic bottle after 24 hours. 03/20/19 13:04 Blood Anaerobic Blood Culture - Preliminary No growth in Anaerobic bottle after 24 hours. 03/20/19 12:52 Blood Aerobic Blood Culture - Preliminary No growth in Aerobic bottle after 24 hours. 03/20/19 12:52 Blood Anaerobic Blood Culture - Preliminary No growth in Anaerobic bottle after 24 hours.
[2019-03-21] MEDS ORDERED: CALCIUM CARBONATE 500 MG CHEWABLE TAB PO PRN (20:09)
[2019-03-21] MEDS: CETIRIZINE HCL 10 MG TABLET PO SCH (20:33)
[2019-03-22] MEDS ORDERED: VANCOMYCIN TROUGH ONE (01:30)
[2019-03-22] MEDS: MONTELUKAST SODIUM 10 MG TABLET PO SCH (07:23)
[2019-03-22] MEDS: VERAPAMIL HCL 120 MG TABCR PO SCH (07:23)
[2019-03-22] MEDS: FLUTICASONE HFA 110MCG INHALER INH SCH (07:23)
[2019-03-22] MEDS: FLUTICASONE PROPIONATE NA SPR 16 GM BTL NAE SCH (07:24)
[2019-03-22] MEDS: ACETAMINOPHEN 325 MG TAB PO PRN (07:25)
[2019-03-22] MEDS: cefTRIAXone SODIUM 2,000 MG in DEXTROSE 5% 50 ML IV SCH (08:50)
--- NOTE | 2019-03-22 15:04 | Hospitalist Progress Note ---
Date of Service March 22, 2019 Assessment & Plan (1) Cellulitis, abdominal wall: Worsening cellulitis lower abdominal wall despite outpatient management with appropriate antibiotics. No apparent abscess per CT imaging. Wound culture from [facility] in [place] grew staph aureus, MSSA. Blood cultures negative after 4 days. ID and Wound Care consulted. IV therapy with ceftriaxone followed by oral therapy with cephalexin recommended. No need for surgical drainage/debridement. Given instructions for wound care by Wound Care Team. Discharge on cephalexin 1000 mg QID. Duration of therapy to be determined; given Rx for 7 days + 2 refills. (2) Paroxysmal SVT (supraventricular tachycardia): History of PSVT. Continue verapamil. (3) Asthma: Pulmonary status stable. (4) Von Willebrand disease: DDAVP prior to any invasive procedures. (5) DVT prophylaxis: No anticoagulants due to von Willebrand's disease. SCDs. Ambulating. (6) Discharge planning issues: Discharge to home. Primary Care follow-up with Jennifer Pickett PA-C. ID follow-up with [facility]. [facility]. Follow-up Dr. Bello [facility]. Subjective Recheck for cellulitis of abdominal wall. Patient seen in their room around 1130. Doing well. Cellulitis improving. No fever, chills, sweats. Diarrhea resolved. Physical Exam Constitutional: no acute distress Skin: resolving erythema lower abdomen Psychiatric: Orientation: alert and oriented x 3 Results & Data Vital Signs (Past 12 Hours) Vital Signs Temp Pulse Resp BP Pulse Ox 03/22/19 12:34 36.7 C 60 16 124/72 97 03/22/19 11:55 36.7 C 60 16 124/72 97 03/22/19 07:18 36.6 C 59 L 18 127/86 95 03/22/19 04:00 36.7 C 67 20 119/81 96
--- NOTE | 2019-03-22 15:06 | Discharge Summary ---
Date of Service Date of Admission: 03/20/19 Date of Discharge: 03/22/19 Admission HPI Per Admitting Provider Pt is 53 y/o M with PMH von Willebrand's, asthma, allergies, paroxysmal SVT presented to ER with complaint of abdominal redness. Patient reports 5 days ago noticed a pimple-like lesion to right lower abdomen and following day he noticed some surrounding redness. States prior to this had sunburn to abdomen and legs. Reports followed up with PCP and was started on Bactrim on 03/17/2019. He reports fever of 102 F on 03/17/2019 and fever of 100.4 F on 03/19/2019, denies any noted fever today. Patient states has had progressive spreading of erythema to entire lower abdomen with tenderness to palpation. Denies deep abdominal discomfort. Patient reports being seen at [place] [facility] on 03/18/2019 and had area I&D. Patient able to pull up wound culture results on his cell phone from medical records: 4+ staph aureus, oxacillin sensitive. Preliminary blood cultures no growth, WBC 11. Patient reports was given Rocephin and was discharged on clindamycin and Keflex. Patient reports today packing had fallen out of wound. Patient reports following up with wound clinic here in [place] and was referred to ER today. Reports was taking magnesium for leg muscle cramps and started with some loose stools so stopped taking last week. [place]. Has hot tub at home and uses frequently. Denies diaphoresis, N/V/C, JAVIER, dizziness, syncope, vision changes, neck pain, CP, SOB, orthopnea, palpitations, cough, sore throat, choking, otalgia, rhinorrhea, paresthesias, weakness, extremity edema, other rashes, urinary symptoms. 03/18/19 wound culture from [facility]: 4+ staph aureus, oxacillin sensitive Clindamycin < 0.25 Sensitive Gentamicin <4 Sensitive Oxacillin <0.25 Sensitive Tetracycline <4 Sensitive Vancomycin 1 Sensitive Linezolid 2 Sensitive TMP-SMZ <0.5/9.5 Sensitive Ceftaroline <0.5 Sensitive Principal Diagnosis cellulitis lower abdomen Discharge Data Allergies Allergy/AdvReac Type Severity Reaction Status Date / Time aspirin AdvReac Severe THINS Verified 03/20/19 10:46 BLOOD/ HX VON WILLEBRAND'S Consultations 03/20/19 14:50 ED Decision to Admit Stat 03/20/19 19:44 Consult Wound Care Provider Routine 03/20/19 19:46 Consult Infectious Diseases Routine Ordered Studies 03/20/19 12:43 CT abd pelvis IV con only Stat Hospital Course (1) Cellulitis, abdominal wall: Worsening cellulitis lower abdominal wall despite outpatient management with appropriate antibiotics. No apparent abscess per CT imaging. Wound culture from [facility] in [place] grew staph aureus, MSSA. Blood cultures negative after 4 days. ID and Wound Care consulted. IV therapy with ceftriaxone followed by oral therapy with cephalexin recommended. No need for surgical drainage/debridement. Given instructions for wound care by Wound Care Team. Discharge on cephalexin 1000 mg QID. Duration of therapy to be determined; given Rx for 7 days + 2 refills. (2) Paroxysmal SVT (supraventricular tachycardia): History of PSVT. Continue verapamil. (3) Asthma: Pulmonary status stable. (4) Von Willebrand disease: DDAVP prior to any invasive procedures. (5) DVT prophylaxis: No anticoagulants due to von Willebrand's disease. SCDs. Ambulating. (6) Discharge planning issues: Discharge to home. Primary Care follow-up with Jennifer Pickett PA-C. ID follow-up with Dr. [facility]don[facility]. Follow-up Dr. Bello at [facility]. Total Time Total Time Spent Total Time Spent (In Minutes): 30 Discharge Plan Discharge Items Patient Disposition: Home - Self-Care Reason For Visit: abdominal cellulitis Discharge Diagnosis: abdominal cellulitis Condition: Good Discharge Goals: Improve disease control Activity: Resume your previous activity Non-emergency contact: Primary Care Provider, Hospitalist and Specialist Call non-emergency contact if: you have any medication questions, your symptoms worsen and your temperature is above 101 Follow-up/Referrals: Mandi Maldonado DO [Physician] - ([facility] 03/26/19 as scheduled.) Jennifer Pickett PA-C [Primary Care Provider] - Pierre Bello DO [Physician] - ([facility] 03/26/19 as scheduled.) Diet: Heart Healthy Addtl Provider Instructions: MEDICATION CHANGES: Stop clindamycin and current dose of cephalexin (Kelflex). Start cephalexin (Keflex) 1000 mg (2 pills) 4 times a day. Duration of treatment to be determined- as directed by Drs. Maldonado and Ace. Prescription for 1 week with 2 refills sent to [facility] in [place]. SUMMARY OF TEST RESULTS: Wound culture from [facility] grew Staph aureus (not MRSA). Blood cultures negative as of 03/21/19. PENDING TEST RESULTS: none RECOMMENDATIONS FOR FOLLOW-UP: Follow-up with Wound Clinic next week as scheduled. OTHER INSTRUCTIONS: Any antibiotic can cause diarrhea. Eating yogurt with active culture or using probiotics may help. You should have your primary care provider check a stool sample if you are having 3 or more episodes of diarrhea / day. Seek medical attention if you have: * temperature above 101 * chest pain or trouble breathing * abdominal pain, nausea, vomiting * diarrhea, dark stools or bloody stools * any unanswered questions or concerns Call [phone] if symptoms are severe. Please take good care of yourself. Call if you have any questions or problems. You can reach a [facility] hospitalist on duty at [facility] 24 hours a day by calling [phone]. My cell # is [phone]. Prescriptions: New cephalexin 500 mg tablet 1,000 mg PO QID 7 Days Qty: 56 RF: 2 Continued montelukast [Singulair] 10 mg tablet 10 mg PO DAILY RF: 0 albuterol sulfate 90 mcg/actuation HFA aerosol inhaler 2 puffs INH Q6H PRN (Reason: Shortness Of Breath) RF: 0 Zyrtec 10 mg capsule 10 mg PO HS RF: 0 acetaminophen [Tylenol Extra Strength] 500 mg Tablet 1,000 mg PO Q6H PRN (Reason: Pain) RF: 0 mometasone 50 mcg/actuation spray,non-aerosol 2 spray intranasal QAM RF: 0 melatonin 5 mg Tablet 5 mg PO HS RF: 0 verapamil 120 mg tablet extended release 120 mg PO DAILY RF: 0 Flovent HFA 110 mcg/actuation HFA aerosol inhaler 2 inh inhalation BID RF: 0 Discontinued clindamycin HCl 300 mg capsule 300 mg PO Q6H RF: 0 cephalexin [Keflex] 500 mg capsule 500 mg PO TID RF: 0 Stand-Alone Forms: My [facility], Work/School Release (Inpt) Discharge Orders: Discharge Order (Routine); Ordered 03/22/19 Ordered By: Gabo Dsouza Admission Data Admit Date/Time: 03/20/19 15:45 Attending Provider: Gabo Dsouza Admit Provider: Gabo Dsouza Primary Care Provider: Jennifer Pickett Other Providers: Pierre Bello ; Mandi Maldonado ; Gabo Dsouza Service: Telemetry Medical Other Interventions: Discharge Summary Assessment (RN) Last Done: 03/22/19 12:34 Pending Studies at Discharge: No DC Date/Time DO NOT enter until pt leaves facility: 03/22/19 13:00
== END 2019-03-22 13:00 | disposition home or self-care (01) ==
LOC: ED 11:56 → 2W 11:56

== ENCOUNTER 2020-02-03 02:32 | Inpatient (IN) ==
[2020-02-03] MEDS ORDERED: HYDROmorphone INJ 1 MG/ML SYRINGE IV STA (03:11)
[2020-02-03 03:22] LABS: Basophils # (auto) 0.05 K/uL (0-0.2); Basophils % (auto) 0.4 %; Eosinophils # (auto) 0.03 K/uL (0-0.5); Eosinophils % (auto) 0.2 %; Hematocrit (blood only) 41.7 % (42-52); Hemoglobin 13.7 g/dL (14.0-18.0); Immature Granulocytes # (auto) 0.05 K/uL (0.00-0.02); Immature Granulocytes % (auto) 0.4 %; Lymphocytes # (auto) 1.49 K/uL (1.2-3.4); Lymphocytes % (auto) 11.9 %; Mean Corpuscular Hemoglobin 26.8 pg (25-34); Mean Corpuscular Hgb Conc 32.9 g/dL (32-36); Mean Corpuscular Volume 81.4 fL (80-100); Mean Platelet Volume 9.6 fL (7.4-10.4); Monocytes # (auto) 1.11 K/uL (0.11-0.59); Monocytes % (auto) 8.9 %; Neutrophils # (auto) 9.75 K/uL (1.4-6.5); Neutrophils % (auto) 78.2 %; Platelet Count 233 K/uL (130-400); RDW Coefficient of Variation 13.2 % (11.5-14.5); RDW Standard Deviation 39.6 fL (36.4-46.3); Red Blood Count 5.12 M/uL (4.7-6.1); White Blood Count 12.48 K/uL (4.8-10.8)
[2020-02-03 03:30] LABS: Alanine Aminotransferase 23 U/L (12-78); Albumin Level 3.6 gm/dl (3.4-5.0); Aspartate Aminotransferase 17 U/L (15-37); BUN Creatinine Ratio 8.3 (10-20); Blood Urea Nitrogen 9 mg/dl (7-18); Calcium 9.2 mg/dl (8.5-10.1); Carbon Dioxide 28 mmol/L (21-32); Chloride 107 mmol/L (98-107); Est GFR (African American) 90.5; Est GFR (Non-African American) 78.1; Glucose 128 mg/dl (70-99); Lipase 104 U/L (73-393); Sodium 139 mmol/L (136-145)
[2020-02-03 03:32] LABS: Partial Thromboplastin Ratio 1.3; Partial Thromboplastin Time 35.3 Seconds (21.0-31.0); Prothrombin Time 10.8 Seconds (9.0-12.0)
[2020-02-03 03:34] LABS: Albumin Globulin Ratio 0.7 (0.9-2); Alkaline Phosphatase 66 U/L (45-117); Bilirubin,Total 0.9 mg/dl (0.2-1); Globulin 4.9 gm/dl (2.5-4.0); Total Protein 8.5 gm/dl (6.4-8.2); Troponin I < 0.015 ng/ml (0-0.045)
[2020-02-03] MEDS: SODIUM CHLORIDE 0.9% 500 ML IV SCH ×2 (03:40→09:21)
--- NOTE | 2020-02-03 04:36 | Emergency Department Note ---
Impression & Plan Esophageal pain, Right-sided chest pain ED Provider Note NAME: MARGARETH BIRMINGHMA Jr AGE: 54 SEX: M ARRIVES VIA: Walk-In INFORMANT: Patient ED PROVIDER(S): Jasmyn Smith DO CHIEF COMPLAINT: Right-sided chest pain PLAN: Disposition: Evaluated by the [facility] Hospitalist service for further care and consult of gastroenterology Condition: Stable MEDICAL DECISION MAKING: This is a 54-year-old male who presents to the emergency department for right- sided chest pain that radiates through to his back that intensely worsens with swallowing. Patient has a previously known history of a narrow esophagus. Over the past 3 or 4 days, the patient has developed this severe pain with swallowing of solids or liquids. Patient had not been vomiting or retching. The patient will require GI evaluation but has a history of von Willebrand's disease so I thought he would require first admission to the hospital by medicine. I discussed the case with Dr. Lloyd and he will evaluate the patient. We talked about performing a CT scan of the patient's chest to rule out esophageal perforation versus consulting GI for possible EGD. 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 Triage Nursing notes reviewed and agree them. Additional history obtained from patient's . Prior medical records reviewed I reviewed the patient's EGD report from 2013-Dr. Nelson. Vital Signs: reviewed and were unremarkable Differential diagnosis: Esophageal stricture; esophageal inflammation; eosinophilic esophagitis; esophageal foreign body; esophageal tear ER treatment provided: IV Dilaudid; IV normal saline solution Diagnostics interpreted by me: ECG: Normal sinus rhythm at 82. There is no ischemia; no ST segment elevation.; No ectopy Cardiac Monitoring: Normal sinus rhythm at 80 Laboratory studies: See below Imaging studies: As per my interpretation Chest x-ray: No acute pulmonary infiltrates or consolidations HPI: 54/M arrives for evaluation of right-sided chest pain. This is a 54-year-old male patient who has developed right-sided chest pain that radiates through to his back over the past 3 to 4 days. He was initially seen at [facility] in [place] 3 days ago complaining of a sore throat and pain with swallowing. He was diagnosed with influenza B at that time. His family remain concerned and brought him here for further evaluation. The patient has had no episodes similar to this in the past although in 2013 he underwent an EGD with Dr. Nelson which showed a diffusely narrowed esophagus and was diagnosed with eosinophilic esophagitis. Over the past 12 hours, the patient's pain has become more severe. He states that even with taking liquids, the pain significantly intensifies as he swallow s. ROS: See above HPI for pertinent positives & negatives. A total of 10 systems reviewed and were otherwise negative. PAST MEDICAL HISTORY:SVT, varicose veins, von Willebrand's disease PAST SURGICAL HISTORY:See Below FAMILY HISTORY:See Below SOCIAL HISTORY:The patient lives with his and works for [employer] HOME MEDICATIONS:See list ALLERGIES:See list VITALS:See Below PHYSICAL EXAMINATION: HEENT: Head - normocephalic and atraumatic Pupils are equal, round, and reactive to light. Extraocular eye muscles are intact, and sclera are anicteric. Nose - moist nasal mucosa without discharge. Mouth - moist buccal mucosa. Oropharynx is nonerythematous and there is no tonsillar exudate or edema noted. Neck: Supple; no JVD, nuchal rigidity, cervical lymphadenopathy Heart: Regular rate and rhythm. There is a normal S1 and S2 with no murmurs, cl icks, or gallops appreciated. Lungs: Clear to auscultation bilaterally with no wheezes, rales, or rhonchi. Abdomen: Soft, completely nontender, nondistended, with good bowel sounds. There are no palpable pulsatile masses or hepatosplenomegaly. There is no guarding, rigidity, or rebound noted. Extremities: No evidence of cyanosis, clubbing, or edema. There are easily palpable peripheral pulses. Skin: warm and dry with good turgor and no rashes. ED COURSE: Times/Reassessments: 0245: The patient was evaluated in room C6. A complete history and physical was performed. Previous electronic medical records were reviewed. An IV lock was initiated and labs were drawn as above. An order was placed for continuous cardiac monitoring. The patient remained in a normal sinus rhythm at 72 bpm. A twelve-lead EKG was obtained as described above. I did find the patient's EGD report from July 2014. It was noted that he had a small caliber esophagus throughout the entire esophagus and some evidence of eosinophilic esophagitis. This was performed by Dr. Nelson. 0415: The patient was reevaluated at this time. I reviewed the results of the x-ray and labs with the patient. He still quite uncomfortable. He was given a subsequent dose of Dilaudid. I explained that we would have the patient evaluated by the [facility] hospitalist and then consult gastroenterology 0555: I discussed the case with the patient's who was outside in the car. Jasmyn Smith DO Past Med/Surg History Medical History (Updated 02/03/20 @ 20:52 by Jasmyn Smith DO) Acquired von Willebrand disease (Chronic) Allergy-induced asthma (Chronic) Asthma (Chronic) Dysphagia Environmental allergies (Chronic) History of varicose veins of lower extremity (Chronic) 2009 surgery at [facility] - Dr Cain Paroxysmal SVT (supraventricular tachycardia) (Chronic) SVT (supraventricular tachycardia) (Chronic) Von Willebrand disease (Chronic) Surgical History History of inguinal hernia repair, bilateral (Chronic) 1964 Status post bilateral hernia repair (Chronic) Social History Preferred Language: Togolese Communication Ability: Effective Visual Impairment: Limited Hearing Ability: Normal Special Delivery Messenger Required: No Beliefs That Will Affect Care: None marital status: Current Living Situation: Spouse current occupational status: employed Other Information That Helps Us Care for You: No Feels Safe at Home: Yes Safety Concerns: Feels Safe At This Time Smoking Status: Never smoker Do You Dip or Chew Tobacco: No ; Second Hand Exposure: No ; Tobacco Cessation Education Requested by Patient: No Hx Alcohol Use: Yes Alcohol type: wine Alcohol Intake Frequency: Holi days/Special Occasions Hx Substance Use: No Allergies Allergies Allergy/AdvReac Type Severity Reaction Status Date / Time latex Allergy Rash Verified 02/03/20 07:11 aspirin AdvReac Severe THINS Verified 02/03/20 03:12 BLOOD/ HX VON WILLEBRAND'S Home Meds Home Medications Medication Instructions Recorded Confirmed Flovent HFA 2 inh INHALATION BID 03/20/19 02/03/20 albuterol sulfate 90 mcg/actuation 2 puffs INH Q6H PRN 03/20/19 02/03/20 aerosol inhaler melatonin 5 mg PO HS 03/20/19 02/03/20 mometasone 2 spray INTRANASAL QAM 03/20/19 02/03/20 verapamil 120 mg PO DAILY 03/20/19 02/03/20 cetirizine [Zyrtec] 10 mg PO HS 02/03/20 02/03/20 magnesium 83 mg PO DAILY 02/03/20 02/03/20 magnesium glycinate 200 mg PO HS 02/03/20 02/03/20 montelukast [Singulair] 10 mg PO DAILY 02/03/20 02/03/20 Results & Data (ED) Vital Signs Vital Signs - 24 hr 02/03/20 02:34 02/03/20 03:12 02/03/20 04:00 Temperature 37.2 C Temperature Source Oral Pulse Rate 81 Pulse Rate [Apical] 72 Respiratory Rate 20 18 Respiratory Effort / Characteristics Non-Labored Respiratory Depth Normal Blood Pressure 189/98 H Blood Pressure [Left Arm] 170/98 H Blood Pressure Mean 128 Blood Pressure Mean [Left Arm] 122 Blood Pressure Position Sitting Pulse Oximetry 97 98 Oxygen Delivery Method Room Air Room Air Room Air Sepsis Recent Fever Within 48 Hours No Sepsis Action Taken by Nursing No Action Required Laboratory Data Result diagrams: 02/03/20 09:14 02/03/20 09:14 Lab Results 02/03/20 02/03/20 02/03/20 Range/Units 02:54 02:54 02:54 WBC 12.48 H (4.8-10.8) K/uL RBC 5.12 (4.7-6.1) M/uL Hgb 13.7 L (14.0-18.0) g/dL Hct 41.7 L (42-52) % MCV 81.4 (80-100) fL MCH 26.8 (25-34) pg MCHC 32.9 (32-36) g/dL RDW Std Deviation 39.6 (36.4-46.3) fL RDW Coeff of Leonardo 13.2 (11.5-14.5) % Plt Count 233 (130-400) K/uL MPV 9.6 (7.4-10.4) fL Immature Gran % (Auto) 0.4 % Neut % (Auto) 78.2 % Lymph % (Auto) 11.9 % [place] % (Auto) 8.9 % Eos % (Auto) 0.2 % Baso % (Auto) 0.4 % Immature Gran # (Auto) 0.05 H (0.00-0.02) K/uL Neut # (Auto) 9.75 H (1.4-6.5) K/uL Lymph # (Auto) 1.49 (1.2-3.4) K/uL [place] # (Auto) 1.11 H (0.11-0.59) K/uL Eos # (Auto) 0.03 (0-0.5) K/uL Baso # (Auto) 0.05 (0-0.2) K/uL PT 10.8 (9.0-12.0) Seconds INR 1.0 (0.9-1.1) APTT 35.3 H (21.0-31.0) Seconds PTT Ratio 1.3 Sodium 139 (136-145) mmol/L Potassium 4.0 (3.5-5.1) mmol/L Chloride 107 (98-107) mmol/L Carbon Dioxide 28 (21-32) mmol/L Anion Gap 4.0 (3-11) BUN 9 (7-18) mg/dl Creatinine 1.06 (0.6-1.4) mg/dl Est Cr Clr Drug Dosing 119.0 ml/min Est GFR ( Amer) 90.5 Est GFR (Non-Af Amer) 78.1 BUN/Creatinine Ratio 8.3 L (10-20) Glucose 128 H (70-99) mg/dl Calcium 9.2 (8.5-10.1) mg/dl Total Bilirubin 0.9 (0.2-1) mg/dl AST 17 (15-37) U/L ALT 23 (12-78) U/L Alkaline Phosphatase 66 (45-117) U/L Troponin I < 0.015 (0-0.045) ng/ml Total Protein 8.5 H (6.4-8.2) gm/dl Albumin 3.6 (3.4-5.0) gm/dl Globulin 4.9 H (2.5-4.0) gm/dl Albumin/Globulin Ratio 0.7 L (0.9-2) Lipase 104 (73-393) U/L Administered Medications Acetaminophen (Tylenol) 650 mg PO Q4H PRN PRN Reason: Pain or Fever Stop: 03/04/20 08:14 Last Admin: 02/03/20 16:47 Dose: 650 mg Documented by: [id number] Fluconazole (Diflucan Susp) 50 mg PO QAM [facility] Stop: 02/13/20 09:59 Last Admin: 02/03/20 12:40 Dose: 50 mg Documented by: [id number] Fluticasone Furoate (Arnuity Ellipta 200mcg) 1 puffs INH DAILY [facility] Stop: 03/04/20 08:59 Last Admin: 02/03/20 09:26 Dose: Not Given Documented by: [id number] Fluticasone Propionate (Flonase) 2 sprays NA QAM [facility] Stop: 03/04/20 08:59 Last Admin: 02/03/20 09:26 Dose: Not Given Documented by: [id number] Hydromorphone HCl (Dilaudid) 0.5 mg IV Q3H PRN PRN Reason: Pain Stop: 02/17/20 08:14 Last Admin: 02/03/20 09:30 Dose: 0.5 mg Documented by: [id number] Dextrose/Sodium Chloride (D5w And 1/2nss) 1,000 mls @ 60 mls/hr IV .[id number] [facility] Stop: 03/04/20 09:14 Last Admin: 02/03/20 09:35 Dose: 60 mls/hr Documented by: [id number] Piperacillin Sod/Tazobactam (Sod 4.5 gm/ Dextrose) 120 mls @ 28.75 mls/hr IV Q8H [facility]; Protocol Stop: 02/13/20 17:59 Last Admin: 02/03/20 17:52 Dose: 28.8 mls/hr Documented by: [id number] Pantoprazole Sodium 40 mg/ (Dextrose) 100 mls @ 20 mls/hr IV Q5H [facility] Stop: 03/04/20 19:29 Last Admin: 02/03/20 20:31 Dose: 8 mg/hr, 20 mls/hr Documented by: [id number] Ioversol (Optiray 320 125ml) 118 ml IV ONCE PRN PRN Reason: Interaction Checking Stop: 02/07/20 17:03 Last Admin: 02/03/20 17:04 Dose: 1 ml Documented by: [id number] Verapamil HCl (Calan Sr) 120 mg PO DAILY [facility] Stop: 03/04/20 08:59 Last Admin: 02/03/20 09:48 Dose: Not Given Documented by: [id number] Discontinued Medications Fluconazole (Diflucan Susp) 50 mg PO QAM [facility] Stop: 02/13/20 09:59 Last Admin: 02/03/20 16:52 Dose: Not Given Documented by: [id number] Hydromorphone HCl (Dilaudid) 1 mg IV NOW STA Stop: 02/03/20 03:12 Last Admin: 02/03/20 03:15 Dose: 1 mg Documented by: [id number] Hydromorphone HCl (Dilaudid) 2 mg IV NOW STA Stop: 02/03/20 04:48 Last Admin: 02/03/20 05:00 Dose: 2 mg Documented by: [id number] Hydromorphone HCl (Dilaudid) Confirm Administered Dose 0.5 mg .ROUTE .STK-MED ONE Stop: 02/03/20 07:25 Last Admin: 02/03/20 07:28 Dose: 0.5 mg Documented by: [id number] Sodium Chloride (Nss) 500 mls @ 125 mls/hr IV .Q4H [facility]IO[facility] Stop: 03/04/20 03:44 Last Admin: 02/03/20 09:21 Dose: Not Given Documented by: [id number] Infusion: 02/03/20 07:11 Dose: 0 mls/hr Documented by: [id number] Admin: 02/03/20 03:40 Dose: 125 mls/hr Documented by: [id number] Sodium Chloride (Nss 1000ml) 1,000 mls @ 125 mls/hr IV .Q8H [facility]IO[facility] Stop: 03/04/20 08:14 Last Admin: 02/03/20 09:21 Dose: Not Given Documented by: [id number] Pantoprazole Sodium 40 mg/ (Syringe) 10 mls @ 5 mls/min IV BID VIOLETA Stop: 02/03/20 18:50 Last Admin: 02/03/20 09:27 Dose: 5 mls/min Documented by: [id number] Piperacillin Sod/Tazobactam (Sod 4.5 gm/ Dextrose) 120 mls @ 200 mls/hr IV ONE ONE; Protocol Stop: 02/03/20 13:50 Last Infusion: 02/03/20 16:51 Dose: 0 mls/hr Documented by: [id number] Admin: 02/03/20 14:04 Dose: 200 mls/hr Documented by: [id number] Discharge Plan Visit Data *Final* Discharge Date/Time: 02/03/20 07:43 Chief Complaint: Chest Pain Stated Complaint: CHEST PAIN,BACK PAIN,CAN'T SWALLOW ED Provider: Jasmyn Smith Discharge Problem: Esophageal pain, Right-sided chest pain Patient Disposition: Admitted As Inpatient Condition: Fair Discharge Instructions Interventions: ED Discharge Assessment Last Done: 02/03/20 07:43
[2020-02-03] MEDS ORDERED: HYDROmorphone INJ 2 MG/ML SYR/VIAL IV STA (04:47)
--- NOTE | 2020-02-03 06:46 | XRay Report ---
XR chest 1V portable HISTORY: 54 years-old Male Chest Pain acute atypical chest pain COMPARISON: Chest radiograph and CT abdomen and pelvis 03/20/2019 TECHNIQUE: Portable AP view of the chest FINDINGS: Cardiomediastinal and hilar silhouettes are within normal limits. No pneumothorax, pleural effusion, airspace consolidation or overt pulmonary edema. Bones of the chest appear grossly intact. IMPRESSION: No acute process. ACT 112: Negative or not required by law. The above report was generated using voice recognition software. It may contain grammatical, syntax o r spelling errors. Electronically signed by: Brain Randall M.D. 02/03/2020 6:45 AM
--- NOTE | 2020-02-03 07:04 | History and Physical Report ---
DATE OF ADMISSION: 02/03/2020 CHIEF COMPLAINT: Pain in his esophagus and chest. HISTORY OF PRESENT ILLNESS: This is a 54-year-old male with past medical history significant for von Willebrand disease, asthma, allergies, paroxysmal SVT, obesity, who presents with esophageal pain. The patient says since last Sunday he is having pain in his chest and throat and radiated to his jaws. He is not able to eat anything because there is severe pain, it is getting worse, so he came here. He had an endoscopy done in 2013 which showed a narrow esophagus throughout. It shows a ringed esophagus, a small caliber esophagus, it was found in the entire esophagus. Tears was observed in the upper and middle thirds of the esophagus. A small hiatal hernia was present. Esophageal mucosal changes are consistent with eosinophilic esophagitis. As per the patient, at that time dilatation was not done because of his von Willebrand disease. He apparently was doing okay. He is careful with swallowing pills, but since last Sunday he noticed difficulty swallowing and it got worsened, he could not even swallow the water. It caused a lot of pain. He is not evening burping. The pain is also on his chest. The pain is mostly from his esophagus and his chest pain is more when he takes a deep breath. Denies any shortness of breath. He has allergies and has some runny nose and on and off some cough. Denies any fever, chills. Yesterday, he went to another outside hospital for similar symptoms and they did a flu swab and it was positive for influenza B, but the patient says he does not feel like he has a flu. He does not have any body aches and no fevers, no shortness of breath. They did not give Tamiflu because they thought it was out of the 2-day period. Denies any headache. No blurred visions, no earache. No abdominal pain. Normal bowel and bladder movements. No hematuria. No blood in the stools. No swelling in the legs, no rash. Ambulates okay. When ambulating or climbing steps, he does not get any chest pains. After the pain medication, his pain is improved. Resting comfortably currently. ALLERGIES: ASPIRIN. PAST MEDICAL HISTORY: As mentioned above. PAST SURGICAL HISTORY: EGDs, history of inguinal hernia repair in 1963, status post bilateral hernia repair. MEDICATIONS: The patient is on albuterol 2 puffs q. 6 hours p.r.n., Flovent 2 inhalations b.i.d., melatonin 5 mg at bedtime, mometasone 2 sprays intranasal q.a.m., verapamil 120 mg p.o. daily. FAMILY HISTORY: Significant for mother had lymphoma; grandmother had stroke; father had diabetes. SOCIAL HISTORY: . No smoking. Alcohol occasionally. No drug use. REVIEW OF SYSTEMS: As per HPI. Rest of the review of systems negative. PHYSICAL EXAMINATION: GENERAL: The patient is morbidly obese, currently not in acute distress. VITAL SIGNS: Temperature 37.2, pulse 72, respiratory rate 18, blood pressure 170/98, oxygen 98% on room air. HEENT: No pallor, no icterus. Pupils equal, round, reactive to light. NECK: No neck masses seen. Supple. CARDIOVASCULAR: S1, S2 heard, regular rate and rhythm, no murmur, no gallop. RESPIRATORY SYSTEM: Normal AP diameter. No accessory muscle use. No wheezing, no crackles. ABDOMEN: Soft, bowel sounds present. Mild upper quadrant tenderness which patient says is chronic. No distention, no guarding, no rigidity. CENTRAL NERVOUS SYSTEM: Cranial nerves II-XII grossly intact. Nonfocal. EXTREMITIES: No edema, no erythema. LABORATORY DATA: WBC 12.4, hemoglobin 13.7, hematocrit 41.7, platelets 233. PT 10.8, INR 1, APTT 35.3. Sodium 139, potassium 4, chloride 107, bicarbonate 28, BUN 9, creatinine 1.06, serum glucose 128, calcium 9.2, total bilirubin 0.9, AST 17, ALT 23, alkaline phosphatase 66. Troponin I less than 0.015. Lipase 104. IMAGING DATA: Chest x-ray, no acute findings seen. EKG: Normal sinus rhythm at a rate of 82, no significant change was found. ASSESSMENT AND PLAN: This 54-year-old male presents with odynophagia and chest pain. 1. Odynophagia and chest pain. The chest pain is mostly coming from the esophagus. Pain is more with a deep breath. Troponin and EKG unremarkable. We will follow the second set of troponin. He had an EGD done in 2013 which showed narrow esophagus and possible eosinophilic esophagitis. It was not dilated at that time because of von Willebrand disease. We will keep him n.p.o., IV fluids, IV Dilaudid p.r.n., IV Protonix b.i.d. and consult GI for further recommendation. Monitor in the med/surg tele for now. 2. History of asthma, currently stable. Continue home inhalers. 3. History of paroxysmal supraventricular tachycardia, on verapamil. 4. History of von Willebrand disease, needs a DDAVP prior to any invasive procedures. 5. Influenza B positive yesterday at out side hospital. No symptom. His is Nurse. Will repeat flu studies. 6. Deep venous thrombosis prophylaxis, sequential compression devices for now. 7. Disposition: Admit to med/surg tele. Level 1 full code. Expect to discharge home and follow with family doctor. HIRAM
--- NOTE | 2020-02-03 07:18 | Electrocardiogram Report ---
Test Reason : Blood Pressure : / mmHG Vent. Rate : 082 BPM Atrial Rate : 082 BPM P-R Int : 154 ms QRS Dur : 080 ms QT Int : 370 ms P-R-T Axes : 063 -07 -05 degrees QTc Int : 432 ms Normal sinus rhythm Normal ECG When compared with ECG of 20-MAR-2019 12:50, No significant change was found Confirmed by Nato Minor ([id number]) on 02/03/2020 7:18:35 AM Referred By: REFERRED SELF Confirmed By:Ha Minor
[2020-02-03] MEDS ORDERED: HYDROmorphone INJ 0.5 MG/0.5 ML SYR ONE (07:24)
[2020-02-03] MEDS ORDERED: SODIUM CHLORIDE 0.9% 1000ML 1,000 ML IV SCH (08:15)
[2020-02-03] MEDS ORDERED: NITROGLYCERIN SL 0.4 MG/TAB TAB SL PRN (08:15)
[2020-02-03] MEDS ORDERED: HYDROmorphone INJ 0.5 MG/0.5 ML SYR IV PRN (08:15)
[2020-02-03] MEDS ORDERED: ONDANSETRON INJ 2 MG/ML 2 ML VIAL IV PRN (08:15)
[2020-02-03] MEDS ORDERED: ACETAMINOPHEN 325 MG TAB PO PRN (08:15)
[2020-02-03] MEDS ORDERED: ALBUTEROL HFA 8 GM INHALER INH PRN (08:15)
[2020-02-03] MEDS ORDERED: PANTOprazole 40 MG in SYRINGE 0 ML IV SCH (09:00)
[2020-02-03] MEDS ORDERED: FLUTICASONE PROPIONATE NA SPR 16 GM BTL SCH (09:00)
[2020-02-03] MEDS ORDERED: FLUTICASONE FUROATE 200MCG 14 PUFFS/INHALER INH SCH (09:00)
--- NOTE | 2020-02-03 09:06 | Gastrointestinal Consultation ---
Date of Consultation February 03, 2020 Assessment & Plan (1) Von Willebrand disease: 54 year old male with VonWBD, EOE, acute fluB presenting with worsening dysphagia, odynophagia x 1 week. He reports he is presently able to tolerate liquid and his own secretions and that pain is improved with analgesia - Obtain records from OSH - NPO for now - IV PPI BID - IVF maintenance - IV analgesia PRN - Will need EGD, timing to be determined given FluB status Thank you for allowing us to participate in the care of this patient. Please call with any acute changes, questions or concerns. Please see addendum below with additional recommendation from my supervising physician. Attg add: I reviewed chart and labs, interviewed and examined pt. Pt with h/o EOE dx'd 2013 with long standing dysphagia worse over the past few weeks not on meds, reports episode of dysphagia on Sunday followed by worsening odynophagia over the weekend. Denies resp symptoms, but now with fever undergoing COVID rule out. Suspect symptoms related to EOE, possible ? esophageal tear from food impaction. NPO for now. Would consider chest imaging to r.o Boerhaave's given odynophagia and h/o Eoe. Agree with empiric abx. If negative, then BID PPI and FLovent 2 puffs PO BID. (2) Dysphagia: History of Present Illness Reason for Consultation: odynophagia Requesting Physician: Baljit Attending Physician: Shahab Smiley MD History of Present Illness 54 year old male with history of von Willebrand disease, asthma, allergies, paroxysmal SVT, obesity, who presents through the ED w/ esophageal pain. Of note, per patient he was in ED on [facility] and diagnosed with FluB a few days ago. Suggests he preseneted with the same symptoms. For one week he has had midline back pain, epigastric pain w/ radiation up his chest and into his jaw. Suggests this has worsened in the past 24 hours. This pain was made worse with PO intake. Suggests any semi-solid food would "stick" but that he was able to swallow his saliva and liquids okay. Presently reports epigastric pain/pressure but no difficulty tolerating liquid or his own secretions. Suggests his pain is improved w/ pain medication presently. No lower GI symptoms. No fever, chills, SOB. He reports a history of dysphagia w/ known EOE. He has not been dilated in the past due to VonWB as he was told he was not a candidate for dilation. Allergies Allergy/AdvReac Type Severity Reaction Status Date / Time latex Allergy Rash Verified 02/03/20 07:11 aspirin AdvReac Severe THINS Verified 02/03/20 03:12 BLOOD/ HX VON WILLEBRAND'S Home Medications Home Medications Medication Instructions Recorded Confirmed Type Flovent HFA 2 inh INHALATION BID 03/20/19 02/03/20 History albuterol sulfate 90 mcg/actuation 2 puffs INH Q6H PRN 03/20/19 02/03/20 History aerosol inhaler melatonin 5 mg PO HS 03/20/19 02/03/20 History mometasone 2 spray INTRANASAL QAM 03/20/19 02/03/20 History verapamil 120 mg PO DAILY 03/20/19 02/03/20 History cetirizine [Zyrtec] 10 mg PO HS 02/03/20 02/03/20 History magnesium 83 mg PO DAILY 02/03/20 02/03/20 History magnesium glycinate 200 mg PO HS 02/03/20 02/03/20 History montelukast [Singulair] 10 mg PO DAILY 02/03/20 02/03/20 History Patient History Medical History (Updated 02/03/20 @ 09:11 by Marcie Rosa) Acquired von Willebrand disease (Chronic) Allergy-induced asthma (Chronic) Asthma (Chronic) Dysphagia Environmental allergies (Chronic) History of varicose veins of lower extremity (Chronic) [address] [facility] - Dr Cain Paroxysmal SVT (supraventricular tachycardia) (Chronic) SVT (supraventricular tachycardia) (Chronic) Von Willebrand disease (Chronic) Surgical History History of inguinal hernia repair, bilateral (Chronic) 1964 Status post bilateral hernia repair (Chronic) Social History Preferred Language: Austrian Communication Ability: Effective Visual Impairment: Limited Hearing Ability: Normal Tumbling And Rolling Supervisor Required: No Beliefs That Will Affect Care: None marital status: Current Living Situation: Spouse current occupational status: employed Other Information That Helps Us Care for You: No Feels Safe at Home: Yes Safety Concerns: Feels Safe At This Time Smoking Status: Never smoker Do You Dip or Chew Tobacco: No ; Second Hand Exposure: No ; Tobacco Cessation Education Requested by Patient: No Hx Alcohol Use: Yes Alcohol type: wine Alcohol Intake Frequency: Holidays/Special Occasions Hx Substance Use: No Review of Systems Constitutional: no fever and no chills Respiratory: no cough and no dyspnea Cardiovascular: + chest pain; no dyspnea Gastrointestinal: + pain with swallowing and + dysphagia Physical Exam Constitutional: + morbidly obese; no acute distress Neck: trachea midline Respiratory: normal respiratory effort Skin: no rashes, warm and dry Results & Data ([facility]) Vital Signs (Past 12 Hours) Vital Signs Temp Pulse Pulse Resp BP BP Pulse Ox 02/03/20 08:20 37.2 C 85 20 133/84 98 02/03/20 07:29 79 16 165/102 H 02/03/20 06:00 75 18 154/114 H 97 02/03/20 04:00 72 18 170/98 H 98 02/03/20 02:34 37.2 C 81 20 189/98 H 97 Laboratory Results 02/03/20 02/03/20 02/03/20 Range/Units 02:54 02:54 02:54 WBC 12.48 H (4.8-10.8) K/uL RBC 5.12 (4.7-6.1) M/uL Hgb 13.7 L (14.0-18.0) g/dL Hct 41.7 L (42-52) % MCV 81.4 (80-100) fL MCH 26.8 (25-34) pg MCHC 32.9 (32-36) g/dL RDW Std Deviation 39.6 (36.4-46.3) fL RDW Coeff of Leonardo 13.2 (11.5-14.5) % Plt Count 233 (130-400) K/uL MPV 9.6 (7.4-10.4) fL Immature Gran % (Auto) 0.4 % Neut % (Auto) 78.2 % Lymph % (Auto) 11.9 % [place] % (Auto) 8.9 % Eos % (Auto) 0.2 % Baso % (Auto) 0.4 % Immature Gran # (Auto) 0.05 H (0.00-0.02) K/uL Neut # (Auto) 9.75 H (1.4-6.5) K/uL Lymph # (Auto) 1.49 (1.2-3.4) K/uL [place] # (Auto) 1.11 H (0.11-0.59) K/uL Eos # (Auto) 0.03 (0-0.5) K/uL Baso # (Auto) 0.05 (0-0.2) K/uL PT 10.8 (9.0-12.0) Seconds INR 1.0 (0.9-1.1) APTT 35.3 H (21.0-31.0) Seconds PTT Ratio 1.3 Sodium 139 (136-145) mmol/L Potassium 4.0 (3.5-5.1) mmol/L Chloride 107 (98-107) mmol/L Carbon Dioxide 28 (21-32) mmol/L Anion Gap 4.0 (3-11) BUN 9 (7-18) mg/dl Creatinine 1.06 (0.6-1.4) mg/dl Est Cr Clr Drug Dosing 119.0 ml/min Est GFR ( Amer) 90.5 Est GFR (Non-Af Amer) 78.1 BUN/Creatinine Ratio 8.3 L (10-20) Glucose 128 H (70-99) mg/dl Calcium 9.2 (8.5-10.1) mg/dl Total Bilirubin 0.9 (0.2-1) mg/dl AST 17 (15-37) U/L ALT 23 (12-78) U/L Alkaline Phosphatase 66 (45-117) U/L Troponin I < 0.015 (0-0.045) ng/ml Total Protein 8.5 H (6.4-8.2) gm/dl Albumin 3.6 (3.4-5.0) gm/dl Globulin 4.9 H (2.5-4.0) gm/dl Albumin/Globulin Ratio 0.7 L (0.9-2) Lipase 104 (73-393) U/L
[2020-02-03] MEDS ORDERED: D5W AND 1/2NSS 1,000 ML IV SCH (09:15)
[2020-02-03] MEDS ORDERED: CHLORASEPTIC 1.4% SOLN 180 ML BTL MT PRN (09:16)
[2020-02-03] MEDS: VERAPAMIL HCL 120 MG TABCR PO SCH ×2 (09:23→09:48)
[2020-02-03 09:35] LABS: Basophils # (auto) 0.04 K/uL (0-0.2); Basophils % (auto) 0.3 %; Eosinophils # (auto) 0.05 K/uL (0-0.5); Eosinophils % (auto) 0.4 %; Hematocrit (blood only) 42.5 % (42-52); Hemoglobin 13.5 g/dL (14.0-18.0); Immature Granulocytes # (auto) 0.03 K/uL (0.00-0.02); Immature Granulocytes % (auto) 0.2 %; Lymphocytes # (auto) 1.98 K/uL (1.2-3.4); Lymphocytes % (auto) 14.5 %; Mean Corpuscular Hemoglobin 26.7 pg (25-34); Mean Corpuscular Hgb Conc 31.8 g/dL (32-36); Mean Corpuscular Volume 84.2 fL (80-100); Mean Platelet Volume 9.4 fL (7.4-10.4); Monocytes # (auto) 1.41 K/uL (0.11-0.59); Monocytes % (auto) 10.3 %; Neutrophils # (auto) 10.13 K/uL (1.4-6.5); Neutrophils % (auto) 74.3 %; Platelet Count 259 K/uL (130-400); RDW Coefficient of Variation 13.5 % (11.5-14.5); RDW Standard Deviation 41.1 fL (36.4-46.3); Red Blood Count 5.05 M/uL (4.7-6.1); White Blood Count 13.64 K/uL (4.8-10.8)
--- NOTE | 2020-02-03 09:45 | Hospitalist Progress Note ---
Date of Service February 03, 2020 Assessment & Plan (1) Dysphagia: -patient admitted by Dr. Lloyd -Patient was seen by GI team. Main issue is 1 day of difficulty with swallowing. patient 5 days ago positive for influenza. denies fevers at home. denies respiratory distress but that he does have cough because of history of allergies. GI team is assessing if upper endoscopy can be performed given recent flu test. patient is agreeable to get another influenza swab. . He is on droplet precautions. He does not have respiratory symptoms suggestive of COVID-19 - he also reports that even if there were concerns of COVID-19 he will refuse any COVID-19 swab because of concern that he will have nasopharyngeal bleed because of history of Von Willebrand disease. Hospitalist assessment does not determine that COVID-19 testing is needed, however hospitalist infectious control team appears interested to be involved in his case. Patient expressing some frustration with care to date because he feels direct visualization with GI will help him with diagnosis and management of chest discomfort which he describe as spasms in lower part of esophagus. He expresses worries about dehydration. Hospitalist expressed to him that he will be on IV fluids with dextrose to help him with hydration and calories if they are any prolonged delays in direct visualization and eating. He is currently on IV protonics BID. He is agreeable to starting empiric Fluconazole in case of any risk of lena esophagitis as contributory symptoms until direct visualization can occur. Speech and swallow also consulted in case of need for swallowing study if patient agrees. History of eosinophilic esophagitis -ED physician found patient's EGD report from July 2014. It was noted that he had a small caliber esophagus throughout the entire esophagus and some evidence of eosinophilic esophagitis. This was performed by Dr. Nelson. -await further GI recommendations and interventions History of asthma -no wheezing -Continue home inhalers if needed Influenza -he reports influenza was from 5 days ago, but no symptoms. after lengthy discussion he will agree to take influenza test again while at [facility] History of von Willebrand disease -he may need DDAVP prior to any invasive procedures. this may be done in coordination with GI team paroxysmal supraventricular tachycardia -monitor on telemetry -on verapamil. Deep venous thrombosis prophylaxis, sequential compression devices for now. Admission and Anticipated Discharge Date Admission Date: February 03, 2020 Subjective Patient was seen by GI team. Main issue is 1 day of difficulty with swallowing. patient 5 days ago positive for influenza. denies fevers at home. denies respiratory distress but that he does have cough because of history of allergies. GI team is assessing if upper endoscopy can be performed given recent flu test. patient is agreeable to get another influenza swab. . He is on droplet precautions. He does not have respiratory symptoms suggestive of COVID-19 - he also reports that even if there were concerns of COVID-19 he will refuse any COVID-19 swab because of concern that he will have nasopharyngeal bleed because of history of Von Willebrand disease. Hospitalist assessment does not determine that COVID-19 testing is needed, however hospitalist infectious control team appears interested to be involved in his case. Patient expressing some frustration with care to date because he feels direct visualization with GI will help him with diagnosis and management of chest discomfort which he describe as spasms in lower part of esophagus. He expresses worries about dehydration. Hospitalist expressed to him that he will be on IV fluids with dextrose to help him with hydration and calories if they are any prolonged delays in direct visualization and eating. He is currently on IV protonics BID. He is agreeable to starting empiric Fluconazole in case of any risk of lena esophagitis as contributory symptoms until direct visualization can occur. Speech and swallow also consulted in case of need for swallowing study if patient agrees. Review of Systems Review of Systems: All systems reviewed & are unremarkable except as noted in Subjective Physical Exam Constitutional: + obese Eyes: PERRL, conjunctivae normal, anicteric sclerae EOM intact bilaterally ENMT: external ear and nose normal, oropharynx normal Neck: trachea midline, no thyromegaly normal visual inspection Respiratory: normal respiratory effort, lungs clear to auscultation Cardiovascular: Rate/Rhythm: regular rate Gastrointestinal (Abdomen): normal bowel sounds, soft, nontender, no hepatosplenomegaly Musculoskeletal: Head/Neck/Chest: normocephalic and head atraumatic Neurologic: PERRL, EOMI, accommodation nl, no face palsy, no dysarthria CN's II-XI intact bilaterally Psychiatric: A+Ox3, euthymic affect Results & Data Results & Data ([facility]) Vital Signs (Past 12 Hours) Vital Signs Temp Pulse Pulse Resp BP BP Pulse Ox 02/03/20 08:20 37.2 C 85 20 133/84 98 02/03/20 07:29 79 16 165/102 H 02/03/20 06:00 75 18 154/114 H 97 02/03/20 04:00 72 18 170/98 H 98 02/03/20 02:34 37.2 C 81 20 189/98 H 97
[2020-02-03] MEDS ORDERED: FLUCONAZOLE 50 MG/5 ML PO SCH (10:00)
[2020-02-03 10:01] LABS: BUN Creatinine Ratio 8.7 (10-20); Blood Urea Nitrogen 9 mg/dl (7-18); Calcium 9.3 mg/dl (8.5-10.1); Carbon Dioxide 28 mmol/L (21-32); Chloride 106 mmol/L (98-107); Creatinine Clr Calc Pharmacy 127.4 ml/min; Est GFR (African American) 98.3; Est GFR (Non-African American) 84.8; Glucose 126 mg/dl (70-99); Magnesium 2.3 mg/dl (1.8-2.4); Potassium 4.6 mmol/L (3.5-5.1); Sodium 139 mmol/L (136-145)
[2020-02-03 10:06] LABS: Troponin I < 0.015 ng/ml (0-0.045)
[2020-02-03] MEDS ORDERED: FLUCONAZOLE 10 MG/ML PO SCH (11:00)
[2020-02-03 12:09] LABS: Influenza A virus by PCR Neg for Influ A (Neg); Influenza B virus by PCR Neg for Influ B (Neg)
--- NOTE | 2020-02-03 12:20 | Electrocardiogram Report ---
Test Reason : Blood Pressure : / mmHG Vent. Rate : 082 BPM Atrial Rate : 082 BPM P-R Int : 162 ms QRS Dur : 078 ms QT Int : 366 ms P-R-T Axes : 053 -10 -11 degrees QTc Int : 427 ms Normal sinus rhythm Minimal voltage criteria for LVH, may be normal variant Borderline ECG When compared with ECG of 03-FEB-2020 02:49, No significant change was found Confirmed by Nato Minor ([id number]) on 02/03/2020 12:20:03 PM Referred By: REFERRED SELF Confirmed By:Ha Minor
[2020-02-03] MEDS ORDERED: PIPERACILL/TAZOBAC CONSULT ACTIVE PRN (12:58)
[2020-02-03] MEDS ORDERED: PIPERACILLIN/TAZOBACTAM 4.5 GM in DEXTROSE 5% 100 ML IV ONE (13:15)
[2020-02-03] MEDS ORDERED: OPTIRAY 320 125ml IV PRN (17:04)
--- NOTE | 2020-02-03 17:42 | CT Scan Report ---
CT OF THE CHEST WITH IV CONTRAST CLINICAL HISTORY: Pt with pain upon swallowing, rule out Boerhaave's COMPARISON STUDY: Chest radiograph March 20, 2019 and February 03, 2020. TECHNIQUE: Following IV administration of 119 mL of Optiray-320, helical axial images of the chest w ere obtained. Sagittal and coronal reconstructions were viewed as well as maximal intensity projecti ons on an independent 3-D workstation. Automated exposure control was utilized for the study. A dos e lowering technique was utilized adhering to the principles of ALARA. CT DOSE: 621.55 mGycm FINDINGS: There are trace bilateral pleural effusions. There is no pneumothorax. The size of the hea rt is normal. There is no pericardial effusion. Note is made of extensive wall thickening of the enti rety of the thoracic esophagus. There is moderate adjacent infiltration. Multiple mildly enlarged. Es ophageal lymph nodes measure up to 1 cm in short axis diameter. Note is made of a 6.5 x 2.8 x 1.9 cm elongated hypodense focus likely within the right posterior lateral wall of the upper to mid thoracic esophagus. This contains several locules of gas. Equivocal trace pneumomediastinum within the AP win gabi shown on axial image 98 of 266. No suspicious pulmonary nodules are present. Bony thorax and uppe r abdomen are unremarkable. IMPRESSION: 1. Diffuse esophageal wall thickening with adjacent inflammation. 6.5 x 2.8 x 1.9 cm elongated intram ural abnormality within the right posterolateral wall of the mid to upper thoracic esophagus which co ntains several locules of gas. The CT appearance is nonspecific and this could reflect an intramural abscess or hematoma. A mass is considered less likely however neoplasm is within the differential. Eq uivocal trace pneumomediastinum. Contained perforation would be difficult to exclude. Discussed with Dr. Vazquez at time of dictation. 2. Multiple mildly enlarged paraesophageal lymph nodes which are probably reactive. Neoplastic etiolo gy is considered less likely. 3. Trace bilateral pleural effusions. ACT 112: Negative or not required by law. Electronically signed by: Jose Fuentes M.D. 02/03/2020 5:41 PM
[2020-02-03] MEDS ORDERED: PIPERACILLIN/TAZOBACTAM 4.5 GM in DEXTROSE 5% 100 ML IV SCH (18:00)
--- NOTE | 2020-02-03 18:24 | Discharge Summary ---
Date of Service February 03, 2020 Admission HPI Per Admitting Provider HISTORY OF PRESENT ILLNESS: This is a 54-year-old male with past medical history significant for von Willebrand disease, asthma, allergies, paroxysmal SVT, obesity, who presents with esophageal pain. The patient says since last Sunday he is having pain in his chest and throat and radiated to his jaws. He is not able to eat anything because there is severe pain, it is getting worse, so he came here. He had an endoscopy done in 2013 which showed a narrow esophagus throughout. It shows a ringed esophagus, a small caliber esophagus, it was found in the entire esophagus. Tears was observed in the upper and middle thirds of the esophagus. A small hiatal hernia was present. Esophageal mucosal changes are consistent with eosinophilic esophagitis. As per the patient, at that time dilatation was not done because of his von Willebrand disease. He apparently was doing okay. He is careful with swallowing pills, but since last Sunday he noticed difficulty swallowing and it got worsened, he could not even swallow the water. It caused a lot of pain. He is not evening burping. The pain is also on his chest. The pain is mostly from his esophagus and his chest pain is more when he takes a deep breath. Denies any shortness of breath. He has allergies and has some runny nose and on and off some cough. Denies any fever, chills. Yesterday, he went to another outside hospital for similar symptoms and they did a flu swab and it was positive for influenza B, but the patient says he does not feel like he has a flu. He does not have any body aches and no fevers, no shortness of breath. They did not give Tamiflu because they thought it was out of the 2-day period. Denies any headache. No blurred visions, no earache. No abdominal pain. Normal bowel and bladder movements. No hematuria. No blood in the stools. No swelling in the legs, no rash. Ambulates okay. When ambulating or climbing steps, he does not get any chest pains. After the pain medication, his pain is improved. Resting comfortably currently. Principal Diagnosis Dysphagia secondary to esophageal tear (risk of esophageal perforation) secondary to eosinophilic esophagitis , fever History of eosinophilic esophagitis von Willebrand disease history of paroxysmal supraventricular tachycardia Discharge Exam Constitutional + obese Eyes PERRL, conjunctivae normal, anicteric sclerae EOM intact bilaterally ENMT external ear and nose normal, oropharynx normal Neck trachea midline, no thyromegaly normal visual inspection Respiratory normal respiratory effort, lungs clear to auscultation Cardiovascular Rate/Rhythm: regular rate Gastrointestinal (Abdomen) normal bowel sounds, soft, nontender, no hepatosplenomegaly Musculoskeletal Head/Neck/Chest: normocephalic and head atraumatic Neurologic PERRL, EOMI, accommodation nl, no face palsy, no dysarthria CN's II-XI intact bilaterally Psychiatric A+Ox3, euthymic affect Discharge Data Allergies Allergy/AdvReac Type Severity Reaction Status Date / Time latex Allergy Rash Verified 02/03/20 07:11 aspirin AdvReac Severe THINS Verified 02/03/20 03:12 BLOOD/ HX VON WILLEBRAND'S Consultations 02/03/20 04:33 ED Decision to Admit Stat 02/03/20 08:15 Consult Case Management - Discharge Planning Routine Consult Gastroenterology Routine 02/03/20 12:45 Consult Hematology Routine 02/03/20 18:01 Burn CD for patient Stat Ordered Studies 02/03/20 15:47 CT chest w con Stat Hospital Course (1) Dysphagia: secondary to esophageal tear (risk of esophageal perforation) secondary to eosinophilic esophagitis , fever History of eosinophilic esophagitis -patient admitted by Dr. Lloyd because of pain of swallowing foods and liquids and right sided chest pain, presented to ER on 02/03/2020 -ED physician found patient's EGD report from July 2014. It was noted that he had a small caliber esophagus throughout the entire esophagus and some evidence of eosinophilic esophagitis. This was performed by Dr. Nelson. -Patient was seen by GI team. Main issue is 1 day of difficulty with swallowing. patient 5 days ago positive for influenza. denies fevers at home. denies respiratory distress but that he does have cough because of history of allergies. GI team is assessing if upper endoscopy can be performed given recent flu test. patient is agreeable to get another influenza swab. . He is on droplet precautions. He does not have respiratory symptoms suggestive of COVID-19 - he also reports that even if there were concerns of COVID-19 he will refuse any COVID-19 swab because of concern that he will have nasopharyngeal bleed because of history of Von Willebrand disease. Hospitalist assessment does not determine that COVID-19 testing is needed, however hospitalist infectious control team appears interested to be involved in his case. Patient expressing some frustration with care to date because he feels direct visualization with GI will help him with diagnosis and management of chest discomfort which he describe as spasms in lower part of esophagus. He expresses worries about dehydration. Hospitalist expressed to him that he will be on IV fluids with dextrose to help him with hydration and calories if they are any prolonged delays in direct visualization and eating. He is currently on IV protonics BID. He is agreeable to starting empiric Fluconazole in case of any risk of lena esophagitis as contributory symptoms until direct visualization can occur. Speech and swallow also consulted in case of need for swallowing study if patient agrees. -influenza negative, COVID-19 ruled out -patient had fever while on medical telemetry pino and empirically started on Zosyn IV 4.5 grams q8 hours with blood cultures drawn. His T max is 39 celsius -Dr. Vazquez of gastroenterology ordered CT chest with IV contrast and he is concerned that patient has esophageal tear, which is more concerning because of fever, and that there is small risk of esophageal rupture which may need Cardiothoracic surgery back up so recommended transfer to [facility] in [place] with strict NPO for now. Dr. Juarez is accepting doctor at [facility] in [place] History of asthma -no wheezing -Continue home inhalers if needed previous Influenza -he reports influenza was from 5 days ago, but no symptoms. influenza and COVID- 19 testing on 02/03/2020 is negative von Willebrand disease -he may need DDAVP prior to any invasive procedures. paroxysmal supraventricular tachycardia -on verapamil -currently in sinus Deep venous thrombosis prophylaxis, sequential compression devices for now. Total Time Total Time Spent Total Time Spent (In Minutes): 40 minutes Total Time Includes: Examination of the Patient, Discharge Planning, Medication Reconciliation and Communication With Other Providers Discharge Plan Discharge Items Reason For Visit: ODYNOPHAGIA, CHEST PAIN Medications and DC Order Prescriptions: No Action albuterol sulfate 90 mcg/actuation HFA aerosol inhaler 2 puffs INH Q6H PRN (Reason: Shortness Of Breath) RF: 0 mometasone 50 mcg/actuation spray,non-aerosol 2 spray intranasal QAM RF: 0 melatonin 5 mg Tablet 5 mg PO HS RF: 0 verapamil 120 mg tablet extended release 120 mg PO DAILY RF: 0 Flovent HFA 110 mcg/actuation HFA aerosol inhaler 2 inh inhalation BID RF: 0 cetirizine [Zyrtec] 10 mg tablet 10 mg PO HS RF: 0 montelukast [Singulair] 10 mg tablet 10 mg PO DAILY RF: 0 magnesium glycinate 100 mg Tablet 200 mg PO HS RF: 0 magnesium 83 mg PO DAILY RF: 0 Admission Data Admit Date/Time: 02/03/20 05:26 Attending Provider: Shahab Smiley Admit Provider: Temo Lloyd Primary Care Provider: Jennifer Pickett Other Providers: Temo Lloyd ; Alexis Jenkins ; Karissa Flores ; Felix Suarez ; Roberta Acosta ; Sam Blake ; Luis Enrique Christie ; Naseem Vazquez ; Gabbie Snider ; Buddy Nelson ; Frank Parson ; Marcie Rosa ; Claire Lopez ; Gloria Maldonado ; Carrie Bird ; Catracho Jaramillo ; Jean-Paul Irizarry
[2020-02-03] MEDS ORDERED: PANTOprazole 40 MG in DEXTROSE 5% 100 ML IV SCH (19:30)
[2020-02-03] MEDS ORDERED: MELATONIN 3 MG TAB PO SCH (21:00)
== END 2020-02-03 23:09 | disposition short-term general hospital (02) | DRG 392 ==
LOC: ED 02:32 → 2N 05:26

== ENCOUNTER 2024-01-03 08:00 | Observation (INO) ==
--- NOTE | 2023-11-22 11:54 | PAT Medication Instructions ---
Medication Instructions Date of Service November 22, 2023 Home Medications albuterol sulfate 90 mcg/actuation aerosol inhaler 2 puffs inhalation Q6H PRN Shortness Of Breath fluticasone propionate 110 mcg/actuation HFA aerosol inhaler (Flovent HFA) 2 inh inhalation BID mometasone 50 mcg/actuation nasal spray 2 spray intranasal QAM Imitrex 1 dose PO UD PRN Migraine Headache cefuroxime axetil 500 mg tablet 500 mg PO BID cetirizine 1 mg/mL oral solution 10 mg PO QPM cholecalciferol (vitamin D3) 125 mcg (5,000 unit) tablet (Vitamin D3) 250 mcg PO QAM hydroxychloroquine 200 mg tablet 400 mg PO QPM lactobacillus combination no.4 3 billion cell capsule (Probiotic) 3,000 mmu cells PO QDL melatonin 5 mg tablet 5 mg PO HS montelukast 10 mg tablet (Singulair) 10 mg PO QAM omeprazole 20 mg tablet,delayed release 20 mg PO QDL Continue as directed cefuroxime axetil 500 mg tablet 500 mg PO BID omeprazole 20 mg tablet,delayed release 20 mg PO QDL ASK your prescriber and surgeon hydroxychloroquine 200 mg tablet 400 mg PO QPM DO NOT take the morning of surgery cholecalciferol (vitamin D3) 125 mcg (5,000 unit) tablet (Vitamin D3) 250 mcg PO QAM lactobacillus combination no.4 3 billion cell capsule (Probiotic) 3,000 mmu cells PO QDL Take morning of surgery With a small sip of water, OTHERWISE NOTHING TO EAT OR DRINK AFTER MIDNIGHT: albuterol sulfate 90 mcg/actuation aerosol inhaler 2 puffs inhalation Q6H PRN Shortness Of Breath (use if needed; please bring with you to hospital day of surgery if possible) fluticasone propionate 110 mcg/actuation HFA aerosol inhaler (Flovent HFA) 2 inh inhalation BID mometasone 50 mcg/actuation nasal spray 2 spray intranasal QAM Imitrex 1 dose PO UD PRN Migraine Headache (if needed) montelukast 10 mg tablet (Singulair) 10 mg PO QAM Take evening before surgery albuterol sulfate 90 mcg/actuation aerosol inhaler 2 puffs inhalation Q6H PRN Shortness Of Breath (if needed) fluticasone propionate 110 mcg/actuation HFA aerosol inhaler (Flovent HFA) 2 inh inhalation BID Imitrex 1 dose PO UD PRN Migraine Headache (if needed) cetirizine 1 mg/mL oral solution 10 mg PO QPM melatonin 5 mg tablet 5 mg PO HS Other Notes If you have any questions please call us at [phone] or [phone] or [phone] or [phone]
--- NOTE | 2023-11-27 12:21 | Anesthesiology Consultation ---
Date of Service November 27, 2023 Assessment & Plan (1) Encounter for pre-operative examination: - Infectious disease screening: Per assessment on 11/27/23: No known infectious disease contacts or current infectious disease symptoms. No noted recent Covid positive test result. - Outpatient joint assessment: Pt currently scheduled for inpatient pathway (confirmed by surgeon paperwork + patient, OR made aware). Hx von Willebrand disease (requiring preop DDAVP per heme/onc), patient post-op concern for pain management, BMI > 40. If surgeon requests review for outpatient joint pathway, patient is not recommended candidate for outpatient joint program from anesthesia standpoint based upon available information. - Hx von Willebrand disease (unspecified subtype per heme/onc office): Follows with hematology- recommending preop DDAVP. Order from hematology dated 11/09/23 scanned into chart ("DDAVP 18mcg in 100cc 0.9 NSS IV over 30 min prior to procedure"). Confirmed with pharmacy ([facility]) that they have received preop DDAVP order and entered it. Pharmacy + Dr. Chandler feel that patient will not need to be brought in earlier than normal to have preop DDAVP arranged from pharmacy + anesthesia perspectives retrospectively. OR made aware. - Hematology note (11/29/23): "No contraindication to use of spinal or use of epidural anesthesia" - Patient acceptable risk for surgery pending surgeon-ordered PCP (Jennifer Lopez PAC, appt 12/02) + cardiology (Dr. Henry, appt 12/19) preop evaluations. Chart Review Chart Review: Patient seen in Pre Admission Testing Teaching & Discussion Pre-Anesthesia Teaching/Discussion Notes: Instructed NPO after midnight before surgery,except medications with 15 cc of water. Medication instructions provided according to the PAT guidelines. History Surgery Operation Date: 01/03/24 07:15 Proposed Procedures p Left Total Knee Replacement - Sascha Villagran MD Height/Weight Height: 6 ft 2 in Weight: 142.2 kg Allergies Allergy/AdvReac Type Severity Reaction Status Date / Time adhesive Allergy Rash Verified 11/27/23 12:31 aspirin AdvReac Severe "Thins Verified 11/27/23 09:40 blood"/hx von Willebrand disease NSAIDS (Non-Steroidal AdvReac "Thins Verified 11/27/23 12:31 Anti-Inflamma blood"/hx von Willebrand disease Medications Home Medications Medication Instructions Recorded Confirmed Last Taken albuterol sulfate 90 mcg/actuation 2 puffs inhalation Q6H PRN 03/20/19 11/14/23 Unknown aerosol inhaler Shortness Of Breath fluticasone propionate 110 2 inh inhalation BID 03/20/19 11/14/23 03/20/19 mcg/actuation HFA aerosol inhaler (Flovent HFA) mometasone 50 mcg/actuation nasal 2 spray intranasal QAM 03/20/19 11/14/23 03/19/19 spray Imitrex 1 dose PO UD PRN Migraine Headache 11/14/23 11/14/23 Unknown cefuroxime axetil 500 mg tablet 500 mg PO BID 11/14/23 11/14/23 Unknown cetirizine 1 mg/mL oral solution 10 mg PO QPM 11/14/23 11/14/23 Unknown cholecalciferol (vitamin D3) 125 250 mcg PO QAM 11/14/23 11/14/23 Unknown mcg (5,000 unit) tablet (Vitamin D3) hydroxychloroquine 200 mg tablet 400 mg PO QPM 11/14/23 11/14/23 Unknown lactobacillus combination no.4 3 3,000 mmu cells PO QDL 11/14/23 11/14/23 Unknown billion cell capsule (Probiotic) melatonin 5 mg tablet 5 mg PO HS 11/14/23 11/14/23 Unknown montelukast 10 mg tablet 10 mg PO QAM 11/14/23 11/14/23 Unknown (Singulair) omeprazole 20 mg tablet,delayed 20 mg PO QDL 11/14/23 11/14/23 Unknown release Past Medical History Medical History (Updated 11/27/23 @ 15:37 by Naheed Jeffery) Allergy-induced asthma Bradycardia Chronic, baseline HR 50s per patient Fibromyalgia GERD (gastroesophageal reflux disease) History of degenerative disc disease History of migraine History of paroxysmal supraventricular tachycardia Follows with cardiology (Dr. Henry/[facility]) History of varicose veins of lower extremity s/p surgery (2008), Dr. Ant [place] (hard of hearing) Left ear Lyme disease Positive Lyme testing 06/2023- prescribed Ceftin BID x 6 months Osteoarthritis Von Willebrand disease Follows with Dr. Phan/[facility] Preop DDAVP to be administered prior to Left TKA per surgeon, heme/onc order scanned into system already Exercise / Class Metabolic Activity III < 4 Walking/Shop/Light housework Past Family History Family History Mother Lymphoma Grandmother (Maternal) Stroke Father Diabetes Other No family history of adverse response to anesthesia Past Surgical History Surgical History History of anesthesia reaction "Choking" feeling with anesthesia emergence with CTR, told he "woke up too early" Patient states that he has been told to use "small ETT" and has "smaller esophagus" Also states "takes longer for Novocain to work" with dental procedures and "narcotics aren't effective for pain for me" History of carpal tunnel release of both wrists History of colonoscopy History of esophagogastroduodenoscopy (EGD) History of surgery RLE varicose vein History of tooth extraction Status post bilateral hernia repair Past Anesthesia History No Family Hx of Anesthesia Complications and Other History of PONV No Hx of PONV and Hx of Motion Sickness Social History Smoking Status: Never smoker Do You Dip or Chew Tobacco: No Hx Alcohol Use: Yes Alcohol type: wine alcohol intake frequency: holidays/special occasions only Hx Substance Use: No substance use type: does not use Review of Systems Rare palpitations. Patient denies chest pain, shortness of breath, dyspnea on exertion, fever, chills, cough, wheezing. Physical Exam Vital Signs BP 117/73 P 54 TEMP 98.6 SP02 93 RESP 18 Physical Full cervical extension range of motion. Full TMJ range of motion. TMD 3.5 finger breaths Mallampati Score 1 Dentition: intact, + crowns, upper front right temporary (crown to be placed prior to surgery- surgeon aware) Lungs: clear throughout to auscultation Cardiac: regular rate and rhythm, no murmurs noted Spine: normal Carotid arteries: negative bruit Extremities: no LE edema Lab Results Anesthesia Preop Results Results Anesthesia Widget: WBC 5.32 K/ul (4.8-10.8) 11/27/23 Hgb 14.1 g/dl (14.0-18.0) 11/27/23 Hct 43.3 % (42.0-52.0) 11/27/23 Plt 224 K/uL (130-400) 11/27/23 Na 139 mmol/L (136-145) 11/27/23 K 4.1 mmol/L (3.5-5.1) 11/27/23 Cl 108 mmol/L (98-107) H 11/27/23 CO2 25 mmol/L (21-32) 11/27/23 BUN 13 mg/dl (6-23) 11/27/23 Creat 0.86 mg/dl (0.6-1.4) 11/27/23 Glucose Level 97 mg/dl (70-99(Fasting)) 11/27/23 PT 10.6 Seconds (9.0-12.0) 11/27/23 PTT 31 Seconds (21-31) 11/27/23 INR 1.0 (0.9-1.1) 11/27/23 Urine Color Yellow 11/27/23 Urine Appearance Clear (Clear) 11/27/23 Urine pH 5.0 (4.5-7.5) 11/27/23 Urine Specific [place] 1.023 (1.000-1.030) 11/27/23 Urine Protein Negative (Negative) 11/27/23 Urine Glucose (UA) Negative (Negative) 11/27/23 Urine Ketones Negative (Negative) 11/27/23 Urine Blood Negative (Negative) 11/27/23 Urine Nitrite Negative (Negative) 11/27/23 Urine Bilirubin Negative (Negative) 11/27/23 Urine Urobilinogen Negative (Negative) 11/27/23 Urine Leukocyte Esterase Negative (Negative) 11/27/23 Blood Type A Positive 11/27/23 Antibody Screen NEGATIVE 11/27/23 Testing Electrocardiogram Date: 11/27/23 SB at 49bpm. "Otherwise normal ECG" Chest X-Ray Date: 11/27/23 Findings: + NAD Stress Test Date: 06/11/18 Myocardial perfusion imaging study appears normal following pharmacologic stress with regadenoson. No fixed or stress-induced perfusion abnormality is identified. LVEF post stress 69%, at rest 73%.
--- NOTE | 2024-01-01 16:37 | History & Physical Report ---
Date of Service January 01, 2024 Assessment & Plan (1) Left knee DJD: Plan: Left total knee replacement with patient-specific ends implants observation status patient will receive DDAVP morning of surgery we will discuss DVT prevention before discharge. Patient will be seen by [facility] (2) Von Willebrand disease: History of Present Illness Chief Complaint: Left knee pain greater than right Primary Care Provider: Jennifer Pickett Patient is an obese 58-year-old male with greater than 3-year history of bilateral knee pain left greater than right. The pain is associated with decreased range of motion weakness and instability. He has failed intra- articular injections with corticosteroids and viscosupplementation. He is also failed attempts at nerve ablation. He has radiographic evidence of severe disease of both knees and is admitted for elective left knee replacement as first of staged 2 knee replacements. Patient does have a history of von Willebrand's disease type I. He has had successful surgeries in the past with administration of DDAVP. He is arranged to get DDAVP on the morning of surgery. Allergies Allergy/AdvReac Type Severity Reaction Status Date / Time adhesive Allergy Rash Verified 11/27/23 12:31 fluticasone Allergy Flushing, Verified 12/21/23 09:49 [From Flovent Diskus] tachycardia aspirin AdvReac Severe "Thins Verified 11/27/23 09:40 blood"/hx von Willebrand disease NSAIDS (Non-Steroidal AdvReac "Thins Verified 11/27/23 12:31 Anti-Inflamma blood"/hx von Willebrand disease Home Medications Medication Instructions Recorded Confirmed Type albuterol sulfate 90 mcg/actuation 2 puffs inhalation Q6H PRN 03/20/19 11/14/23 History aerosol inhaler Shortness Of Breath fluticasone propionate 110 2 inh inhalation BID 03/20/19 11/14/23 History mcg/actuation HFA aerosol inhaler (Flovent HFA) mometasone 50 mcg/actuation nasal 2 spray intranasal QAM 03/20/19 11/14/23 History spray Imitrex 1 dose PO UD PRN Migraine Headache 11/14/23 11/14/23 History cefuroxime axetil 500 mg tablet 500 mg PO BID 11/14/23 11/14/23 History cetirizine 1 mg/mL oral solution 10 mg PO QPM 11/14/23 11/14/23 History cholecalciferol (vitamin D3) 125 250 mcg PO QAM 11/14/23 11/14/23 History mcg (5,000 unit) tablet (Vitamin D3) hydroxychloroquine 200 mg tablet 400 mg PO QPM 11/14/23 11/14/23 History lactobacillus combination no.4 3 3,000 mmu cells PO QDL 11/14/23 11/14/23 History billion cell capsule (Probiotic) melatonin 5 mg tablet 5 mg PO HS 11/14/23 11/14/23 History montelukast 10 mg tablet 10 mg PO QAM 11/14/23 11/14/23 History (Singulair) omeprazole 20 mg tablet,delayed 20 mg PO QDL 11/14/23 11/14/23 History release Past Med/Surg History Problem List (Updated 01/01/24 @ 16:36 by Sascha Villagran MD) Left knee DJD Right-sided chest pain (Acute) Esophageal pain (Acute) Dysphagia Cellulitis, abdominal wall (Acute) History of inguinal hernia repair, bilateral (Chronic) 1964 Von Willebrand disease (Chronic) Asthma (Chronic) Paroxysmal SVT (supraventricular tachycardia) (Chronic) Cellulitis and abscess of other specified site (Acute) History of varicose veins of lower extremity (Chronic) s/p surgery (2008), Dr. Cain Environmental allergies (Chronic) Medical History Von Willebrand disease Follows with Dr. Phan/[facility] Preop DDAVP to be administered prior to Left TKA per surgeon, heme/onc order scanned into system already History of degenerative disc disease Osteoarthritis GERD (gastroesophageal reflux disease) [place] (hard of hearing) Left ear Fibromyalgia History of migraine Bradycardia Chronic, baseline HR 50s per patient History of paroxysmal supraventricular tachycardia Follows with cardiology (Dr. Henry/[facility]) Lyme disease Positive Lyme testing 06/2023- prescribed Ceftin BID x 6 months Allergy-induced asthma Surgical History History of anesthesia reaction "Choking" feeling with anesthesia emergence with CTR, told he "woke up too early" Patient states that he has been told to use "small ETT" and has "smaller esophagus" Also states "takes longer for Novocain to work" with dental procedures and "narcotics aren't effective for pain for me" History of tooth extraction History of carpal tunnel release of both wrists History of surgery RLE varicose vein History of esophagogastroduodenoscopy (EGD) History of colonoscopy Status post bilateral hernia repair Family History Mother Lymphoma Grandmother (Maternal) Stroke Father Diabetes Other No family history of adverse response to anesthesia Social History Smoking Status: Never smoker Second Hand Exposure: No; Do You Dip or Chew Tobacco: No; Hx Alcohol Use: Yes Alcohol type: wine Hx Substance Use: No Preferred Language: Cuban Communication Ability: Effective Visual Impairment: Limited Hearing Ability: Normal Systems Mgr Required: No Beliefs That Will Affect Care: None marital status: Current Living Situation: Spouse current occupational status: employed Feels Safe at Home: Yes Safety Concerns: Feels Safe At This Time Assistive Devices: Cane and Glasses Review of Systems Review of Systems: Knee pain and instability Physical Exam Physical Exam: Weight 141 kg BMI 40 General: Obese male who appears to be older than his stated age. HEENT: NCAT, EOMI, PERRLA Neck: Negative bruits Heart: Regular rate and rhythm no murmurs appreciated Lungs: Breath sounds clear and present in all bermudez Abdomen: Obese soft nontender bowel sounds are positive Extremities: Left knee shows varus deformity passive range of motion is 0 to 115 degrees flexion with 3 to 4 mm of medial laxity positive effusion and pain Neurological and vascular: Intact Results & Data Results & Data Vital Signs (Past 12 Hours) Blood pressure 128/80 Pulse 57
[~2024-01-03 08:00] MED LIST: BUPIVACAINE 0.25% PF 30 ML VIAL ONE; BUPIVACAINE 0.5 % 5 MG/1 ML PF 10ML VIAL ONE; LR 500ML BOLUS, THEN 15ML/HR IV SCH
--- NOTE | 2024-01-03 08:25 | History & Physical Bridge Note ---
Date of Service January 03, 2024 History & Physical Bridge Note I have examined the patient, reviewed the History & Physical and in the interval since the performance of the History & Physical I have noted the following changes of clinical significance: no changes noted
[2024-01-03] MEDS ORDERED: MIDAZOLAM HCL 1 MG/ML 2ML VIAL ONE (08:38)
[2024-01-03] MEDS: ACETAMINOPHEN 500 MG TAB PO SCH ×2 (09:08→15:25)
[2024-01-03] MEDS: LR 500ML BOLUS, THEN 15ML/HR IV SCH (09:08)
[2024-01-03] MEDS: oxyCODONE HCL 10 MG TABCR (OxyCONTIN) PO SCH (09:09)
[2024-01-03] MEDS: FAMOTIDINE 20 MG TAB PO SCH (09:09)
[2024-01-03] MEDS: METOCLOPRAMIDE HCL 10 MG TABLET PO SCH (09:09)
[2024-01-03] MEDS: GABAPENTIN 600 MG DOSE PO SCH (09:09)
[2024-01-03] MEDS: LR 60ML/HR IV SCH (09:10)
[2024-01-03] MEDS: SODIUM CHLORIDE 0.9% IV SCH (09:34)
[2024-01-03] MEDS ORDERED: ONDANSETRON INJ 2 MG/ML 2 ML VIAL IV PRN ×2 (09:34→13:59)
[2024-01-03] MEDS ORDERED: ATROPINE SULFATE 0.1 MG/ML 10ML SYR IV PRN (09:34)
[2024-01-03] MEDS ORDERED: ePHEDrine sulfate 50 MG/ML AMP IV PRN (09:34)
[2024-01-03] MEDS: DESMOPRESSIN ACETATE IV SCH (09:34)
[2024-01-03] MEDS: TRANEXAMIC ACID 1,000 MG **IV Pre-op IV SCH (09:49)
[2024-01-03] MEDS: ceFAZolin 3000MG 3,000 MG/72.5 ML BAG IV SCH (10:02)
[2024-01-03] MEDS ORDERED: fentaNYL citrate PF 100 MCG/2 ML VIAL ONE ×3 (10:03→10:44)
[2024-01-03] MEDS ORDERED: ePHEDrine sulfate 50 MG/5 ML SYR ONE (10:12)
[2024-01-03] MEDS ORDERED: DEXAMETHASONE SOD INJ 4 MG/ML VIAL ONE (10:12)
[2024-01-03] MEDS ORDERED: LIDOCAINE 2% 2 ML VIAL/AMP(20MG/ML) INFIL ONE (10:12)
[2024-01-03] MEDS ORDERED: ONDANSETRON INJ 2 MG/ML 2 ML VIAL ONE (10:12)
[2024-01-03] MEDS ORDERED: PROPOFOL IV EMULSION 10 MG/ML 20 ML VIAL IV ONE (10:12)
[2024-01-03] MEDS ORDERED: PHENYLEPHRINE 100MCG/ML 10ML SYR IV ONE (10:24)
[2024-01-03] MEDS: ROPIV 0.5% 246mg, Ketorolac 30mg, EPINEPHrine 0.5mg in NSS INFIL SCH (10:32)
[2024-01-03] MEDS: ORTHO JOINT ANESTHETIC ONE (10:33)
[2024-01-03] MEDS ORDERED: GLYCOPYRROLATE 0.2 MG/ML VIAL ONE (10:35)
[2024-01-03] MEDS: TRANEXAMIC ACID 1,000 MG **IV Intra-op IV SCH (11:05)
[2024-01-03] MEDS ORDERED: KETOROLAC 30 MG/ML VIAL ONE (11:05)
[2024-01-03] MEDS ORDERED: HYDROmorphone INJ 2 MG/ML SYR/VIAL ONE (11:30)
[2024-01-03] MEDS: fentaNYL citrate PF 100 MCG/2 ML VIAL IV PRN (12:15)
--- NOTE | 2024-01-03 12:42 | Anesthesiology Progress Note ---
Date of Service January 03, 2024 Anesthesia Post Procedure Vital Signs Vital Signs: Temp Pulse Pulse Resp BP Pulse Ox O2 Del Method 01/03/24 12:40 37.0 C 64 15 109/57 L 100 Room Air 01/03/24 12:30 37.0 C 61 12 119/59 L 100 Room Air 01/03/24 12:20 67 12 117/58 L 100 Oxymask 01/03/24 12:10 88 12 117/58 L 100 Oxymask 01/03/24 12:00 94 H 17 100/56 L 100 Oxymask 01/03/24 11:50 36.3 C L 77 16 112/59 L 99 Oxymask 01/03/24 09:20 36.9 C 60 20 138/91 94 Room Air O2 Flow Rate 01/03/24 12:40 01/03/24 12:30 01/03/24 12:20 3 01/03/24 12:10 3 01/03/24 12:00 3 01/03/24 11:50 5 01/03/24 09:20 Pain Intensity Left Knee: Pain Intensity: 4 Transfer of Care Handoff Completed per policy Notes Mental Status: alert / awake / arousable Patient Amnestic to Procedure: Yes Nausea / Vomiting: adequately controlled Pain: adequately controlled Airway Patency, RR, SpO2: stable & adequate BP & HR: stable & adequate Hydration State: stable & adequate Neuraxial Anesthesia: was administered and sensory block is resolving Anesthetic Complications: no major complications apparent and Pt Satisfied with anesthetic care
[2024-01-03] MEDS ORDERED: HYDROmorphone INJ 1 MG/ML SYRINGE IV PRN (12:45)
[2024-01-03] MEDS ORDERED: HYDROmorphone INJ 0.5 MG/0.5 ML SYR IV PRN (13:59)
[2024-01-03] MEDS ORDERED: bisacodyL 10 MG SUPP PR PRN (13:59)
[2024-01-03] MEDS ORDERED: diphenhydrAMINE 50 MG/ML VIAL IV PRN (13:59)
[2024-01-03] MEDS ORDERED: ALBUTEROL HFA 8 GM INHALER INH PRN (13:59)
[2024-01-03] MEDS ORDERED: NALOXONE HCL 0.4 MG/1 ML VIAL/CARP IV PRN (13:59)
[2024-01-03] MEDS ORDERED: MAGNESIUM HYDROXIDE SUSP 30 ML UDC PO PRN (13:59)
--- NOTE | 2024-01-03 14:19 | XRay Report ---
LEFT KNEE 2 VIEWS History: Left total knee arthroplasty. Degenerative arthritis. Postop. FINDINGS: The patient is status post a left total knee arthroplasty. The hardware is intact. No fract ure or dislocation. Surgical drains are in place. IMPRESSION: Left total knee arthroplasty. No evidence for hardware complication. ACT 112: Negative or not required by law. Electronically signed by: Keith Dunham M.D. 01/03/2024 2:18 PM
--- NOTE | 2024-01-03 15:13 | Operative Report ---
Post Operative Report Pre & Post Diagnosis Operation Date: 01/03/24 09:40 Pre-Op Diagnosis: Osteoarthritis Left Knee Morbid obesity BMI 40 Post-Op Diagnosis: Osteoarthritis Left Knee morbid obesity BMI 40 I identified the patient and participated in the time-out.: Yes Procedure Operation Date: 01/03/24 09:40 Actual Procedures p Left Total Knee Replacement(Left) - Sascha Villagran MD Surgeon Sascha Villagran MD Welder Oxyhydrogen Yuriy Valles PA-C Estimated Blood Loss 250 Findings Consistent with Post-Op Diagnosis patient had a very morbidly obese body habitus with an extremely large leg which made the surgical approach difficult and added increased time to the surgical procedure. He also had general oozing from the bone and soft tissues most likely due to his von Willebrand's disease. The knee did show grade 4 changes in the medial and patellofemoral compartments. Specimens Bone and cartilage fragments Complications none Indications components used: [employer] journey 2 posterior stabilized knee system: Femur size 7 with Oxinium coating, tibia size 6 x 13, Patella 38 oval. Description of Procedure following satisfactory spinal anesthesia the patient was supine on the operating room table. The left lower extremity was prepared with ChloraPrep and draped sterilely. A surgical timeout was performed. A midline incision was made with a median parapatellar arthrotomy. There was a extremely large subcutaneous fat layer which added increased time and difficulty to the surgical procedure. Hemostasis was obtained but there was general oozing most likely from the patient's von Willebrand's disease. Because of the patient's large body habitus attention was first turned to the patella. The patella was freehand cut and sized for a 38 button. This did relax the extensor mechanism and did help with exposure to the lateral side of the knee. The cruciate ligaments were excised. The patient matched femoral block was applied. Femoral distal rotation and resection were setting completed. The 4-in-1 block was used to finish preparation of the femur. The tibial meniscal fragments were excised. The patient matched tibial block was applied. Tibial resection was completed. Soft tissue balancing was completed in flexion and extension. A trial reduction with the above-mentioned components was performed. This showed full extension and flexion to about 105 degrees limited by the size of the patient's leg. The patella did track well throughout and the collateral ligaments were stable. The trial components were removed. The capsule was prepared with the orthopedic cocktail. After irrigation and drying the components were cemented using Librado Z be cement and third-generation test technique cementing the tibia first, femur second, and patella third. When the cemented hardened the knee was checked and showed similar stability and tracking. The wound was irrigated with 500 cc of experience irrigation. The major bleeding that had been oozing from the bone had slowed down with the cementing of the components. A Hemovac drain was placed. The capsulotomy was closed with interrupted [id number] sutures of 1 Vicryl and a running suture of 0 strata fix. The subcutaneous tissues were closed with 0 strata fix deep and 3 oh strata fix superficial. Dermabond Prineo dressing negative pressure wound dressing was applied followed by compressive bandage. Patient was returned to his bed in stable condition. Note: Yuriy URRUTIA was present and assisted throughout due to the complicated nature of this case. He help with preparation and set up, he first line production supervisor throughout. He assisted with hemostasis and exposure throughout the procedure. He also closed the capsule subcutaneous and skin layers and applied the postop dressing. I attest to the content of the Intraoperative Record and any orders documented therein. Any exceptions are noted below.
[2024-01-03 16:18] LABS: BUN Creatinine Ratio 15.3 (10-20); Calcium 8.9 mg/dl (8.6-10.3); Creatinine Clr Calc Pharmacy 137.7 ml/min; Est GFR (African American) 109.8 ml/min; Est GFR (Non-African American) 94.7 ml/min; Potassium 4.2 mmol/L (3.5-5.1)
[2024-01-03] MEDS: SODIUM CHLORIDE 0.9% 1,000 ML IV SCH (18:01)
[2024-01-03] MEDS: General Order Problem(s) SCH (19:23)
--- NOTE | 2024-01-03 19:32 | Hospitalist Consultation ---
Date of Consultation January 03, 2024 Assessment & Plan (1) DVT prophylaxis: Discussed with the patient, orthopedics (Dr Villagran) and hematology (Dr Hogan). The patient previously discussed this with his automobile mechanic apprentice at [facility] and recommended aspirin just once a day if he had to go on VTE prophylaxis - this appears to be reasonable given historical lack of bleeding episodes (two GI bleeds, more minor nosebleeds) Extensively discussed with the patient and decided ultimately on aspirin 81mg PO daily starting on POD#2 given increased bleeding during the surgery as long as bleeding from drain ok from orthopedics stand point - the patient will watch for any increased bleeding. He will be at increased bleeding from his operation on aspirin so if orthopedics feel his bleeding is still excessive this should be delayed further. (2) Status post total left knee replacement: On discussion with pharmacy he may have had dexamethasone during surgery which increases risk of hyponatremia with DDAVP therefore will hold all intranasal/inhaled steroids at this time and monitor sodium overnight Discussed with patient to not drink free water but can have Gatorade for hydration If sodium stable in AM can resume inhaler/intranasal steroids Avoid NSAIDs (3) Lyme disease: On Ceftin per his oracle database manager for 6 months starting in June, resume once perioperative Ancef has finished (4) GERD (gastroesophageal reflux disease): Switch omeprazole for pantoprazole per hospital formulary (5) Environmental allergies: Continue cetirizine and montelukast Plan Thank you for this consult, we will continue to see the patient during his admission History of Present Illness Reason for Consultation: Medical Management/ h/o Von Willebrands Dz Attending Physician: Sascha Villagran MD History of Present Illness Roger Cardona is a 58 year old male POD#0 left total knee replacement. He reports no current complaints. He discussed VTE prophylaxis with his automobile mechanic apprentice pre-operatively and recommended just aspirin once a day rather than twice a day as compromise regarding his higher bleeding risk with his von Willebrand disease. He notes two GI bleeds in the past but none recently. He gets relatively frequently nose bleeds but none that require hospitalization of blood transfusions. He was appropriately given DDAVP prior to surgery however by report he did bleed more than usual during the surgery and this is reflected in his estimated blood loss of 250ml. On discussion with pharmacy he may have been given dexamethasone during the surgery which increases risk of hyponatremia with DDAVP although anesthetic notes not currently scanned in to confirm/deny this. Allergies Allergy/AdvReac Type Severity Reaction Status Date / Time adhesive Allergy Rash Verified 01/03/24 08:43 fluticasone Allergy Flushing, Verified 01/03/24 08:43 [From Flovent Diskus] tachycardia aspirin AdvReac Severe "Thins Verified 01/03/24 08:43 blood"/hx von Willebrand disease NSAIDS (Non-Steroidal AdvReac "Thins Verified 01/03/24 08:43 Anti-Inflamma blood"/hx von Willebrand disease Home Medications Medication Instructions Recorded Confirmed Type albuterol sulfate 90 mcg/actuation 2 puffs inhalation Q6H PRN 03/20/19 01/03/24 History aerosol inhaler Shortness Of Breath fluticasone propionate 110 2 inh inhalation BID 03/20/19 01/03/24 History mcg/actuation HFA aerosol inhaler (Flovent HFA) mometasone 50 mcg/actuation nasal 2 spray intranasal QAM 03/20/19 01/03/24 History spray Imitrex 1 dose PO UD PRN Migraine Headache 11/14/23 01/03/24 History cefuroxime axetil 500 mg tablet 500 mg PO BID 11/14/23 01/03/24 History cetirizine 1 mg/mL oral solution 10 mg PO QPM 11/14/23 01/03/24 History cholecalciferol (vitamin D3) 125 250 mcg PO QAM 11/14/23 01/03/24 History mcg (5,000 unit) tablet (Vitamin D3) lactobacillus combination no.4 3 3,000 mmu cells PO QDL 11/14/23 01/03/24 History billion cell capsule (Probiotic) melatonin 5 mg tablet 5 mg PO HS 11/14/23 01/03/24 History montelukast 10 mg tablet 10 mg PO QAM 11/14/23 01/03/24 History (Singulair) omeprazole 20 mg tablet,delayed 20 mg PO QDL 11/14/23 01/03/24 History release Patient History Medical History (Updated 01/03/24 @ 19:26 by Ruperto Marc MD) Cellulitis, abdominal wall History of varicose veins of lower extremity s/p surgery (2008), Dr. Cain Cellulitis and abscess of other specified site History of degenerative disc disease Osteoarthritis GERD (gastroesophageal reflux disease) [place] (hard of hearing) Left ear Fibromyalgia History of migraine Bradycardia Chronic, baseline HR 50s per patient History of paroxysmal supraventricular tachycardia Follows with cardiology (Dr. Henry/[facility]) Lyme disease Positive Lyme testing 06/2023- prescribed Ceftin BID x 6 months Allergy-induced asthma Surgical History (Updated 01/03/24 @ 19:26 by Ruperto Marc MD) History of inguinal hernia repair, bilateral 1964 History of anesthesia reaction "Choking" feeling with anesthesia emergence with CTR, told he "woke up too early" Patient states that he has been told to use "small ETT" and has "smaller esophagus" Also states "takes longer for Novocain to work" with dental procedures and "narcotics aren't effective for pain for me" History of tooth extraction History of carpal tunnel release of both wrists History of surgery RLE varicose vein History of esophagogastroduodenoscopy (EGD) History of colonoscopy Status post bilateral hernia repair Family History Mother Lymphoma Grandmother (Maternal) Stroke Father Diabetes Other No family history of adverse response to anesthesia Social History Smoking Status: Never smoker Second Hand Exposure: No; Do You Dip or Chew Tobacco: No; Hx Alcohol Use: Yes Alcohol type: wine Hx Substance Use: No Preferred Language: Ethiopian Communication Ability: Effective Visual Impairment: Limited Hearing Ability: Normal Fancy Packer Required: No Beliefs That Will Affect Care: None marital status: Current Living Situation: Spouse current occupational status: employed Feels Safe at Home: Yes Safety Concerns: Feels Safe At This Time Assistive Devices: Cane and Glasses Review of Systems Review of Systems: All systems reviewed & are unremarkable except as noted in HPI & below Physical Exam Constitutional: WD/WN, vitals as above + obese Eyes: PERRL, conjunctivae normal, anicteric sclerae ENMT: external ear and nose normal, oropharynx normal Respiratory: normal respiratory effort, lungs clear to auscultation Cardiovascular: RRR, no murmur, no edema Gastrointestinal (Abdomen): normal bowel sounds, soft, nontender, no hepatosplenomegaly Musculoskeletal: no cyanosis or clubbing, extremities motor strength 5/5 Skin: no rashes, warm and dry Neurologic: moves all extremities and awake; not confused Psychiatric: A+Ox3, euthymic affect Results & Data Results & Data Vital Signs (Past 12 Hours) Vital Signs Temp Pulse Pulse Resp BP Pulse Ox O2 Del Method 01/03/24 19:05 36.6 C 60 16 116/71 96 Room Air 01/03/24 15:50 36.3 C L 92 H 16 125/80 97 Room Air 01/03/24 15:12 36.5 C 77 16 118/74 96 Room Air 01/03/24 14:12 36.3 C L 58 L 16 127/77 99 Room Air 01/03/24 13:45 36.7 C 69 16 121/61 100 Room Air 01/03/24 13:15 37.0 C 84 19 130/72 100 Room Air 01/03/24 13:00 37.0 C 66 19 115/83 100 Room Air 01/03/24 12:45 37.0 C 78 19 120/64 100 Room Air 01/03/24 12:40 37.0 C 64 15 109/57 L 100 Room Air 01/03/24 12:30 37.0 C 61 12 119/59 L 100 Room Air 01/03/24 12:20 67 12 117/58 L 100 Oxymask 01/03/24 12:10 88 12 117/58 L 100 Oxymask 01/03/24 12:00 94 H 17 100/56 L 100 Oxymask 01/03/24 11:50 36.3 C L 77 16 112/59 L 99 Oxymask 01/03/24 09:20 36.9 C 60 20 138/91 94 Room Air O2 Flow Rate 01/03/24 19:05 01/03/24 15:50 01/03/24 15:12 01/03/24 14:12 01/03/24 13:45 01/03/24 13:15 01/03/24 13:00 01/03/24 12:45 01/03/24 12:40 01/03/24 12:30 01/03/24 12:20 3 01/03/24 12:10 3 01/03/24 12:00 3 01/03/24 11:50 5 01/03/24 09:20 Laboratory Results Abnormal lab results 01/03/24 Range/Units 15:28 Glucose 160 H (70-99(Fasting)) mg/dl PG Care Time/CCT Total # of Minutes Spent Total Time Spent with Patient: Total time spent is greater than 50% in coordination of care (as documented) at patient's floor/unit and/or counseling patient: Coding Level of Care Code 78428 IN/OBS CONSULT LVL 4,60M Diagnoses DVT prophylaxis Z29.9 Status post total left knee replacement Z96.652 Lyme disease A69.20 GERD (gastroesophageal reflux disease) K21.9 Environmental allergies Z91.09
[2024-01-03] MEDS: DOCUSATE SODIUM 100 MG CAP PO SCH (20:49)
[2024-01-03] MEDS: SENNA 8.6 MG TAB PO SCH (20:49)
[2024-01-03] MEDS: ceFAZolin 2000MG 2,000 MG/15 ML SYR IV SCH (20:51)
[2024-01-03] MEDS: CETIRIZINE HCL 10 MG TABLET PO SCH (20:52)
[2024-01-03] MEDS: MELATONIN 3 MG TAB PO SCH (20:52)
[2024-01-04] MEDS: oxyCODONE HCL IR 5 MG TAB (IMMEDIATE RELEASE) PO PRN (03:07)
[2024-01-04 06:44] LABS: Hematocrit (blood only) 35.7 % (42.0-52.0); Hemoglobin 11.4 g/dl (14.0-18.0); Mean Corpuscular Hemoglobin 26.7 pg (25.0-34.0); Mean Corpuscular Hgb Conc 31.9 g/dL (32.0-36.0); Mean Corpuscular Volume 83.6 fL (80.0-100.0); Mean Platelet Volume 9.9 fL (9.4-12.4); Platelet Count 177 K/uL (130-400); RDW Coefficient of Variation 13.7 % (11.5-14.5); RDW Standard Deviation 41.9 fL (36.4-46.3); Red Blood Count 4.27 M/uL (4.70-6.10); White Blood Count 8.46 K/ul (4.8-10.8)
[2024-01-04 06:59] LABS: BUN Creatinine Ratio 16.7 (10-20); Calcium 8.5 mg/dl (8.6-10.3); Creatinine Clr Calc Pharmacy 139.3 ml/min; Est GFR (African American) 110.3 ml/min; Est GFR (Non-African American) 95.2 ml/min; Potassium 4.2 mmol/L (3.5-5.1)
--- OUTSIDE RECORDS SUMMARY | 2024-01-04 07:13 | External Medical Summary | Summary of Care ---
Author Name Unknown Organization [facility] Address [address] [facility] [place] [address] Care Team Providers Care Lotteries Agent Name Role Phone Jennifer Torrez PA-C Primary Care Provid er Reason for Visit * Reason Comments Rheum Follow Up Patient is here foll owing up for routine check up for Fibromyalgia. Patient stated he has stopped the Plaquenil due to heart rate. Patient stated since the stopping the Plaquenil his heart rate has gotten better. Encounter Details Date Type Department Care Team (Late st Contact Info) Description 12/27/2023 3:40 PM EDT Office Visit Rheumatology, [facility] [address] [place] [address] Dr [address] Floor [place] [phone] Kerrie Hayes MD [address] [place] [address] [place] [address] Hypovitaminosis D*; Fibromyalgia Allergies Active Allergy Reactions Criticality Noted Date Comments Fluticasone Furoate Flushing Low 02/05/2020 Tolerates Flovent (fluticasone) inhaler Aspirin 07/27/2014 Bleeding Nsaids 12/27/2023 documented as of this encounter (statuses as of 12/27/2023) Medications Medication Sig Dispensed Refills Start Date End Date Status Albuterol Sulfate 108 (90 Base) MCG/ACT AEPB Inhale 2 Puffs by mouth every 6 hours as needed for Dyspnea. 0 Active Mometasone Furoate 50 MCG/ACT AERO Inhale by mouth daily. 0 Active Melatonin 1 MG Capsule Take 5 Capsules by mouth at bedtime. 0 Active Fluticasone Propionate HFA 110 MCG/ACT Inhalation Aerosol Inhale 2 Puffs by mouth in the morning and 2 Puffs before bedtime. 0 Active Cetirizine HCl 10 MG Oral Capsule Take 1 Capsule by mouth in the morning. 0 Active Montelukast Sodium 10 MG Oral Tablet Take 1 Tablet by mouth at bedtime. 0 Active Magnesium 80 MG Oral Tablet Take by mouth. Calm Gummie magnesium Citrate 1 gummie daily 0 Active Gabapentin 300 MG Oral Capsule (Neurontin) 2 times a day. 0 3 Active Gaviscon 80-14.2 MG Oral Tablet Chewable (Alum Hydroxide-Mag Trisilicate) Take by mouth 2 times a day as needed. 0 Active Omeprazole 20 MG Oral Capsule Delayed Release (PriLOSEC) once a day 0 Active DULoxetine HCl 60 MG Oral Capsule Delayed Release Particles (Cymbalta) Take 1 Capsule by mouth in the morning. 0 3 Active Cefuroxime Axetil 500 MG Oral Tablet (Ceftin)Indicatio ns:Borderline results on serologic testing for Lyme disease Take 1 Tablet by mouth in the morning and 1 Tablet before bedtime. 180 Tablet 3 3 Active Vitamin D 125 MCG (5000 UT) Oral Capsule Take by mouth. Taking 10,000 ui 0 Active NSS 0.9 % SOLN 50 mL with DESMOpressin 4 MCG/ML SOLN 0.3 mcg/kg Administer 0.3 mcg/kg intravenously once. As needed 0 Active Hydroxychloroquin e Sulfate 200 MG Oral Tablet (Plaquenil)Indica tions:Borderline results on serologic testing for Lyme disease Take 2 Tablets by mouth at bedtime. 180 Tablet 3 4 12/27/19 24 Discontinued documented as of this encounter (statuses as of 12/27/2023) Active Problems Problem Noted Date Diagnosed Date Hypovitaminosis D 12/27/2023 Borderline results on serologic testing for Lyme disease 06/25/2023 Fibromyalgia 06/25/2023 Chronic pain syndrome 12/28/2022 Myalgia 12/28/2022 Arthralgia 12/28/2022 Primary osteoarthritis of both knees 12/28/2022 Chronic bilateral low back pain with left-sided sciatica 12/28/2022 Carpal tunnel syndrome, left 12/29/2020 Arthritis of carpometacarpal (CMC) joint of left thumb 12/29/2020 Esophageal abnormality 02/04/2020 PSVT (paroxysmal supraventricular tachycardia) 0 02/04/2020 Allergies 02/04/2020 Asthma 02/04/2020 Von Willebrand disease 02/04/2020 documented as of this encounter (statuses as of 12/27/2023) Immunizations Name Administration Dates Next Due COVID-19 mRNA, LNP-s, No Pre serve, 2-Dose Series (Pfizer) 06/23/2021 COVID-19, LNP-s, No Preserve , Kaz-sucrose, Ages 12+ (Pfizer) 05/10/2022,03/01/2022 Pneumococcal Conjugate Vacc, 13 Valent (Prevnar) 03/31/2020 Pneumococcal Polysaccharide PPV23 (Pneumovax) 07/08/2013 Seasonal Influenza Virus Vac cine, Unspecified Formulation 05/31/2022,05/19/2021,05/25/2020,05/24 Seasonal Influenza, Split, I IV3, With Preserve, Inj 04/26/2023,05/21/2012 TDAP (age 10 and older)(Boostrix) 07/08/2013 Zoster Vaccine Recombinant (Shingrix) 10/27/2021 documented as of this encounter Social History Tobacco Use Types Packs/Day Years Used Date Smoking Tobacco: Never Smokeless Tobacco: Never Alcohol Use Standard Drinks/Week Comments Never 0 (1 standard drink = 0.6 oz pur e alcohol) AUDIT-C Answer Date Recorded Frequency of Alcohol Consumption Never 02/04/2020 Average Number of Drinks Not on file 020 Frequency of Binge Drinking Not on file 01/18 Sex and Gender Information Value Date Recorded Sex Assigned at Male 12/21/2022 11:27 AM EDT Gender Identity Male 12/21/2022 11:27 AM EDT Sexual Orientation Heterosexual 12/21/2022 11 :27 AM EDT Job Start Date Occupation Industry Not on file Not on file Not on file documented as of this encounter Last Filed Vital Signs Vital Sign Reading Time Taken Comments Blood Pressure 100/70 12/27/2023 3:30 PM EDT Pulse - - Temperature - - Respiratory Rate - - Oxygen Saturation - - Inhaled Oxygen Concentration - - Weight 142.4 kg (314 lb) 12/27/2023 3:30 PM EDT Height - - Body Mass Index 40.32 09/04/2023 2:37 PM EST documented in this encounter Functional Status Functional Status Response Date of Assess ment Are you deaf or do you have serious difficulty h earing? No 02/04/2020 Are you blind or do you have serious difficulty seeing, even when wearing glasses? No 02/04/2020 Do you have serious difficul ty walking or climbing stairs? (5 years old or older) No 02/04/2020 Do you have difficulty dress ing or bathing? (5 years old or older) No 02/04/2020 Because of a physical, menta l, or emotional condition, do you have difficulty doing errands alone such as visiting a doctor s office or shopping? (15 years old or older) No 02/04/20 Cognitive Status Response Date of Assessm ent Because of a physical, menta l, or emotional condition, do you have serious difficulty concentrating, remembering, or making decisions? (5 years old or older) No 02/04/2020 documented as of this encounter Progress Notes * Kerrie Hayes MD - 12/27/2023 3:40 PM EDT Roger Cardona Jr. is a 58 year old male who presents today for Rheum Follow Up (Patient is here following up for routine check up for Fibromyalgia. Patient stated he has stopped the Plaquenil due to heart rate. Patient stated since the stopping the Plaquenil his heart rate has gotten better.) HPI: Last seen 09/12: "Fibro lyme HPI: From IOV 06/25/23: "Pt here for new eval of chronic pain with . Reports he has had lifelong pain but "All started at age 48" but has progressed in the last couple years- most dramatically since he retired 2 years ago. Now mobility has been limited, he reports, has a hard time driving. Good and bad days. Today is a good day. Pain is "all over". hand, foot, ankle, knee, sciatic, back and JAVIER pain Cannot take NSAIDs d/t Von Willebrand. Takes tylenol only. Has seen C Rheum earlier this year, note reviewed Has seen ortho (significant OA of knees- has had injections) was told bone on bone, had euflexxa- not much relief- states he is leery of TKRs. Saw pain management for back pain- has had MRI. Talked about getting an ablation for back pain, pt hesitant. Talked about getting epidural, chriopractor advised against it, he hasn't gone through with it. Has tried many supplements nothing has helped for any significant period of time. Gets a few days of benefit out of different things but nothing lasting. Looked into medical marijuana but didn't want to give up firearms Has tried gabapentin worked initially, then made him "half brain ". Was recommended to start Cymbalta, has not yet tried this, has not tried lyrica. wonders about long covid, lyme. Pt has had covid. Has not had lyme test recently (last in 2020) has history of tick bites since. Frequent urination Takes melatonin, mg helped restless legs. Sees chiropractor Used to have migraines, not so much any more. Has been drinking a tea, has helped with knee pain Has not done formal PT cites cost/ distance from home as prohibitive factors. Reports that since mcc he tries to stay active but isn't able to be as active physically as he used to be." So seeing me as a new patient.... Knees are [id number] and seeing ortho- is having an ablation type procedure for knee pain Seeing pain management MRI of spine was done, didn't want to give any meds for pain, DR Rodriguez recommended me Is also going to get an ablation so he knows He hurts everywhere was taking a tea with medrol/nsaids and he felt better like a new pato Has been in pain for 10 years, retired 2 years Had tried jaja 900mg brain fog didn't help On dulox 60 mg for past month not helping Really had lyme 20 years ago in [place] was treated with antibiotics, since then has tested negative" Started on ceftin and later plaq- seems to have less pain a little at least Maybe thinking a bit clearer too? Subtle improvement Just had genticular ablation done for knees Has a bad back too Will need TKA +depressed mood +fatigue" So treated him with plaq/ceftin And lets see how he is doing From message 12/11: "Seemingly since I started taking the second 200 mg of Hydroxychloroquine my heart rate has been decreasing. My heart rate was always low, typically 48-56. I just had my pre-op EKG and my rate was 43and it flagged. I see my honing machine try out setter on December 19 prior to your appointment on December 26. Im assuming hes going to question my slowed rate. I really cant say Manuela seen or felt any inflammation reduction taking it. Do you think after 5 months of being on it, was enough to see a reduction in inflammation. I would like to stop taking it. Should I taper off, or is it ok to stop all at once. Idont want this reduced heart rate to stop my TKR scheduled for January 02. " So stopped the plaq and heart rate is better On vit D 10,000 IU a day and vit D is better Getting knee replaced 01/02 And got disability too Still has the all over fibro type pain ACTIVE PROBLEMS: Patient Active Problem List Diagnosis Code Esophageal abnormality K22.9 PSVT (paroxysmal supraventricular tachycardia) ([facility]) I47.10 Allergies T78.40XA Asthma J45.909 Von Willebrand disease ([facility]) D68.00 Carpal tunnel syndrome, left G56.02 Arthritis of carpometacarpal (CMC) joint of left thumb M18.12 Chronic pain syndrome G89.4 Myalgia M79.10 Arthralgia M25.50 Primary osteoarthritis of both knees M17.0 Chronic bilateral low back pain with left-sided sciatica M54.42, G89.29 Borderline results on serologic testing for Lyme disease R76.8 Fibromyalgia M79.7 Hypovitaminosis D E55.9 FAMILY HISTORY: Family History Family history unknown: Yes SOCIAL HISTORY: Social History Tobacco Use Smoking status: Never Smokeless tobacco: Never Vaping Use Vaping Use: Never used Substance Use Topics Alcohol use: Never Drug use: Not on file CURRENT MEDICATIONS: Current Outpatient Medications Medication Sig Dispense Refill Montelukast Sodium 10 MG Oral Tablet Take 1 Tablet by mouth at bedtime. Omeprazole 20 MG Oral Capsule Delayed Release (PriLOSEC) once a day Cefuroxime Axetil 500 MG Oral Tablet (Ceftin) Take 1 Tablet by mouth in the morning and 1 Tablet before bedtime. 180 Tablet 3 NSS 0.9 % SOLN 50 mL with DESMOpressin 4 MCG/ML SOLN 0.3 mcg/kg Administer 0.3 mcg/kg intravenouslyonce. As needed Albuterol Sulfate 108 (90 Base) MCG/ACT AEPB Inhale 2 Puffs by mouth every 6 hours as needed for Dyspnea. Mometasone Furoate 50 MCG/ACT AERO Inhale by mouth daily. Melatonin 1 MG Capsule Take 5 Capsules by mouth at bedtime. Fluticasone Propionate HFA 110 MCG/ACT Inhalation Aerosol Inhale 2 Puffs by mouth in the morning and 2 Puffs before bedtime. Cetirizine HCl 10 MG Oral Capsule Take 1 Capsule by mouth in the morning. Magnesium 80 MG Oral Tablet Take by mouth. Calm Gummie magnesium Citrate 1 gummie daily Gabapentin 300 MG Oral Capsule (Neurontin) 2 times a day. Gaviscon 80-14.2 MG Oral Tablet Chewable (Alum Hydroxide-Mag Trisilicate) Take by mouth 2 times a day as needed. DULoxetine HCl 60 MG Oral Capsule Delayed Release Particles (Cymbalta) Take 1 Capsule by mouth in the morning. Vitamin D 125 MCG (5000 UT) Oral Capsule Take by mouth. Taking 10,000 ui No current facility-administered medications for this visit. ALLERGIES: Review of patient's allergies indicates: Allergen Reactions Aspirin Bleeding Nsaids Arnuity Ellipta [Fluticasone Furoate] Flushing Tolerates Flovent (fluticasone) inhaler Component Latest Ref [facility] 07/26/2023 % CD8-/CD57+ Lymphs 2.0 - 17.0 % 5.0 Abs CD8-CD57+ Lymphs 60 - 360 /uL 100 WBC 3.4 - 10.8 x10E3/uL 5.1 WBC 4.0 - 10.5 K/uL 5.2 RBC 4.14 - 5.80 x10E6/uL 5.16 RBC 4.70 - 6.00 5.16 HGB 13.0 - 17.7 g/dL 13.5 HGB 13.5 - 18 g/dL 13.1 (L) HCT 37.5 - 51.0 % 41.2 HCT 42 - 52 % 40.5 (L) MCV 79 - 97 fL 80 MCV 78.0 - 100.0 fl 78.5 MCH 26.6 - 33.0 pg 26.2 (L) MCH 27.0 - 31.0 pg 25.4 (L) MCHC 31.5 - 35.7 g/dL 32.8 MCHC 32.5 - 36.0 g/dL 32.4 (L) RDW 11.6 - 15.4 % 13.9 RDW 11.5 - 14.0 % 14.9 (H) PLT 150 - 450 x10E3/uL 241 PLT 150 - 450 K/uL 228 Neutrophils Not Estab. % 50 Lymphs Not Estab. % 38 Monocytes Not Estab. % 6 Eos Not Estab. % 5 Basos Not Estab. % 1 Neutrophils Abs 1.4 - 7.0 x10E3/uL 2.5 Lymphs Abs 0.7 - 3.1 x10E3/uL 2.0 MonocytesAbs 0.1 - 0.9 x10E3/uL 0.3 Eos Abs 0.0 - 0.4 x10E3/uL 0.3 Baso Abs 0.0 - 0.2 x10E3/uL 0.1 Immature Granulocytes Not Estab. % 0 Immature Grans Abs 0.0 - 0.1 x10E3/uL 0.0 Sodium 135 - 146 mmol/L 141 Potassium 3.5 - 5.1 mmol/L 4.4 Chloride 98 - 107 mmol/L 109 (H) CO2 - ECH 22 - 32 mmol/L 25 Anion Gap 10 - 20 mmol/L 11 BUN - ECH 6 - 20 mg/dL 13 Creatinine 0.7 - 1.2 mg/dL 0.9 Estimated Glomerular Filtration Rate 98 BUN/Creatinine Ratio 12.0 - 20.0 14.4 Glucose 70 - 120 mg/dL 106 Calcium 8.4 - 10.2 mg/dL 9.2 AST/SGOT 10 - 50 U/L 29 Alkaline Phosphatase 50 - 153 U/L 51 ALT/SGPT 10 - 50 U/L 29 Bilirubin, Total 0.00 - 1.20 mg/dL 0.40 Protein, Total 6.0 - 8.3 g/dL 7.2 Albumin 3.8 - 5.0 g/dL 4.5 Globulin 1.8 - 3.8 g/dL 2.7 Albumin/Globulin Ratio 1.0 - 2.4 1.7 IgG P93 Ab Absent IgG P66 Ab Absent IgG P58 Ab Absent IgG P45 Ab Absent IgG P41 Ab Absent IgG P39 Ab Absent IgG P30 Ab Absent IgG P28 Ab Absent IgG P23 Ab Absent IgG P18 Ab Absent Lyme IgG WB Interp Negative IgM P41 Ab Absent IgM P39 Ab Present ! IgM P23 Ab Absent Lyme IgM WB Interp Negative ECH LAB NEUTROPHIL % 37.0 - 63.0 % 49.8 Lymphocyte % 33.0 - 37.0 % 37.1 (H) Monocyte % 0.0 - 9.0 % 5.9 Eosinophil % 0.0 - 7.0 % 5.6 Basophils % 0.0 - 1.0 % 1.6 (H) Neutrophil # 1.5 - 6.6 K/uL 2.6 Lymphocyte # 1.5 - 3.5 K/uL 1.9 Monocyte # 0.0 - 1.0 K/uL 0.3 Eosinophil # 0.0 - 0.7 K/uL 0.3 Basophils # 0.0 - 0.1 K/uL 0.1 Nucleated RBC Percent <0.01 % 0.1 (H) MPV 6.5 - 9.5 fL 8.3 B henselae IgG Neg:<1:320 titer Negative B henselae IgM Neg:<1:100 titer Negative B faith IgG Neg:<1:320 titer Negative B faith IgM Neg:<1:100 titer Negative B microti IgG -- (C) B microti IgM -- Result Comment Comment Vitamin D, 25-Hydroxy, Serum 30 - 50 ng/mL 29 (L) A phagocytophilum PCR Negative Negative Vit D 64 12/11 I have reviewed the data and personally copied and pasted into this note. Source: epic My interpretation: nice improvement in vit D PHYSICAL EXAM: BP 100/70 (BP Site: Right Arm) | Wt (!) 142.4 kg (314 lb) | BMI 40.32 kg/m | BSA 2.73 m HEENT: anicteric, no malar rash/flush, no parotid enlargement RESP: unlabored, normal respiratory rhythm and effort EXT: no clubbing, cyanosis, or petechia, warm and well perfused SKIN: no periungal erythema, sclerodactyly, teleangiectasias, or nail changes NEURO: speech is fluent and coherent, no ptosis, strength grossly normal in extremities PSYCH: affect and mood are normal Joints: no act syn in hands wrists ASSESSMENT AND PLAN: Hypovitaminosis D (Primary) - 25-HYDROXY VITAMIN D; Standing Keep eye on level Fibromyalgia See how he does post op Follow Up: Return in about 4 months (around 04/28/2024), or put on cancel list for me and one next available. Kerrie Hayes MD 12/27/2023 documented in this encounter Plan of Treatment Upcoming Encounters Date Type Department Care Team (Late st Contact Info) Description 05/05/2024 10:00 AM EDT Office Visit Rheumatology, [place] [facility] [address] Floor [place] [phone] Kerrie Hayes MD [address] [place] [address] Scheduled Orders Name Type Priority Associated Diagnoses Orde r Schedule 25-HYDROXY VITAMIN D Lab Routine Hypovitaminosis D Every 3 Months for 4 Occurrences starting 12/27/2023 until 01/26/2025 Scheduled Procedures Name Priority Associated Diagnoses Date/Ti me COLONOSCOPY FLEXIBLE PROXIMA L DIAGNOSTIC Recall Special screening for malignant neoplasms, colon Health Maintenance Due Date Last Done Comments Lipid Panel 1963 Depression Screening 1975 HIV Screening 1978 Hepatitis C Screening 1981 Cologuard 2008 Fecal Occult Blood Test 2008 Sigmoidoscopy 2008 Zoster Vaccines (2 of 2) 12/22/2021 10/27/2021 *SPIROMETRY ONCE FOR ASTHMA-ADULT 07/13/2022 COVID-19 Vaccine ( season) 2023 05/10/2022, 03/01/2022, 06/23/2021, Additional history exists DTaP,Tdap,and Td Vaccines (2 - Td or Tdap) 07/08/2023 07/08/2013 Colonoscopy 07/28/2024 07/28/2014 Colorectal Cancer Screening 07/28/2024 Diabetes Screening 07/26/2026 07/26/2023, 0 12/28/2022, 02/06/2020, Additional history exists Pneumococcal Vaccine: Pediatrics (0 to 5 Years) and At-Risk Patients (6 to 64 Years) (3 of 3 - PPSV23 or PCV20) 2028 03/31/2020, 07/08/2013 Influenza Vaccine (FLU shot) Completed 02/2023, 05/31/2022, 05/19/2021, Additional history exists GARDASIL-HPV IMMUNIZATION SERIES Aged Out No longer eligible based on patient's age to complete this topic Hepatitis B Aged Out No longer eligi ble based on patient's age to complete this topic MENINGOCOCCAL (MENACTRA/MENVEO) Aged Out No longer eligible based on patient's age to complete this topic documented as of this encounter Medical Devices Not on filedocumented as of this encounter Visit Diagnoses Diagnosis Hypovitaminosis D- Primary Unspecified vitamin D deficiency Fibromyalgia Mylagia and myositis, unspecified documented in this encounter Advance Directives Latest Code Status on File Code Status Date Activated Date Inactivated Comments Full Code 12/29/2020 9:27 AM 12/29/2020 2:38 PM Question Answer Comments Discussion of Advance Direct nick occurred with: Not Discussed Code Status History Code Status Date Activated Date Inactivated Comments Full Code 02/04/2020 12:57 AM 02/06/2020 8:20 PM This order reflects the patients wishes and were consensually agreed upon. Question Answer Comments Discussion of Advance Directives occurred with: Patient Care Teams Lotteries Agent Relationship Specialty Start Date End Date Jennifer Torrez PA-C [address] [place] [address] [place] [address] PCP - General Physician Bilingual Student Tutor 12/31/18 documented as of this encounter
--- NOTE | 2024-01-04 08:01 | Orthopedic Progress Note ---
Date of Service January 04, 2024 Assessment & Plan (1) Left knee DJD: Plan: Postop day 1 status post left TKA PT/OT protocols. Weightbearing as tolerated. DVT prophylaxis-SCDs. With patient's history of von Willebrand's disease, it was discussed with Dr. Marc concerning DVT prophylaxis. He also reached out to Dr. Hogan from hematology and plans will be to take 1 aspirin daily. Pain management as written. hyponatremia-patient was running low normal prior to surgery. As per Dr. Marc. DC planning-patient is planning for home health services upon discharge. Plan for discharge to home today if progressing with physical therapy and if okay w [facility] hospitalist team. (2) Von Willebrand disease: Admission and Anticipated Discharge Date Admission Date: January 03, 2024 Subjective postop day 1 Patient sitting up in bed awake and alert. Had some slight burning on urination this morning. Patient was up to the restroom last night and had no burning on urination. Otherwise feeling well. Pain is controlled. Physical Exam Physical Exam: dressings are clean, dry, and intact. Calves are soft nontender. Neurovascular is intact. Toes are mobile. Hemovac drainage was 125 cc earlier this morning. Results & Data Vital Signs (Past 12 Hours) Vital Signs Temp Pulse Resp BP Pulse Ox O2 Del Method 01/04/24 05:29 36.5 C 63 16 113/75 98 Room Air 01/04/24 03:05 36.5 C 62 16 117/79 99 Room Air 01/03/24 23:00 36.6 C 85 16 113/67 96 Room Air Laboratory Results Laboratory Results WBC 8.46 K/ul (4.8-10.8) 01/04/24 05:52 RBC 4.27 M/uL (4.70-6.10) L 01/04/24 05:52 Hgb 11.4 g/dl (14.0-18.0) L 01/04/24 05:52 Hct 35.7 % (42.0-52.0) L 01/04/24 05:52 MCV 83.6 fL (80.0-100.0) 01/04/24 05:52 MCH 26.7 pg (25.0-34.0) 01/04/24 05:52 MCHC 31.9 g/dL (32.0-36.0) L 01/04/24 05:52 RDW Std Deviation 41.9 fL (36.4-46.3) 01/04/24 05:52 RDW Coeff of Leonardo 13.7 % (11.5-14.5) 01/04/24 05:52 Plt Count 177 K/uL (130-400) 01/04/24 05:52 MPV 9.9 fL (9.4-12.4) 01/04/24 05:52 Sodium 133 mmol/L (136-145) L 01/04/24 05:52 Potassium 4.2 mmol/L (3.5-5.1) 01/04/24 05:52 Chloride 102 mmol/L (98-107) 01/04/24 05:52 Carbon Dioxide 26 mmol/L (21-32) 01/04/24 05:52 Anion Gap 5 (3-11) 01/04/24 05:52 BUN 14 mg/dl (6-23) 01/04/24 05:52 Creatinine 0.84 mg/dl (0.6-1.4) 01/04/24 05:52 Est Cr Clr Drug Dosing 139.3 ml/min 01/04/24 05:52 Est GFR ( Amer) 110.3 ml/min 01/04/24 05:52 Est GFR (Non-Af Amer) 95.2 ml/min 01/04/24 05:52 BUN/Creatinine Ratio 16.7 (10-20) 01/04/24 05:52 Glucose 103 mg/dl (70-99(Fasting)) H 01/04/24 05:52 Calcium 8.5 mg/dl (8.6-10.3) L 01/04/24 05:52 Impressions Knee X-Ray 01/03/24 13:17 LEFT KNEE 2 VIEWS History: Left total knee arthroplasty. Degenerative arthritis. Postop. FINDINGS: The patient is status post a left total knee arthroplasty. The hardware is intact. No fracture or dislocation. Surgical drains are in place. IMPRESSION: Left total knee arthroplasty. No evidence for hardware complication. ACT 112: Negative or not required by law. Electronically signed by: Keith Dunham M.D. 01/03/2024 2:18 PM
[2024-01-04] MEDS: MONTELUKAST SODIUM 10 MG TABLET PO SCH (08:33)
[2024-01-04] MEDS: ADVANCED PROBIOTIC 625 MG CAPSULE PO SCH (08:33)
[2024-01-04] MEDS: MULTIVITAMIN TAB PO SCH (08:33)
[2024-01-04] MEDS: CHOLECALCIFEROL 125 MCG (5,000 UNITS) TAB PO SCH (08:33)
[2024-01-04] MEDS: PANTOprazole 40 MG TAB PO SCH (08:33)
[2024-01-04] MEDS ORDERED: FLUTICASONE PROPIONATE NA SPR 16 GM BTL SCH (09:00)
[2024-01-04] MEDS ORDERED: FLUTICASONE FUROATE 200MCG 14 PUFFS/INHALER INH SCH (09:00)
--- NOTE | 2024-01-04 11:03 | Hospitalist Progress Note ---
Date of Service January 04, 2024 Assessment & Plan (1) Status post total left knee replacement: Plan: Acute/stable POD#1 - PT/OT evaluated, he is cleared for discharge home with his + home health - Maintain hemovac until instructed to remove by orthopedics - Na level stable, slight drop from 136 to 133, likely due to Decadron given intraoperatively + DDAVP - Higher risk of bleeding d/t von willebrand's, no NSAIDs - Follow up with orthopedics as directed (~2 weeks of discharge) (2) DVT prophylaxis: Plan: - Discussed with the patient, orthopedics (Dr Villagran) and hematology (Dr Hogan). 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 CBC and BMP reviewed. No additional recommendations at this time. Will sign off as patient is medically stable for discharge. Plan of care has been d/w Dr. Evangelista. Admission and Anticipated Discharge Date Admission Date: January 03, 2024 Tien Duran was seen today on daily rounds. He is pod#1 from left TKA. He reports pain after therapy session, but admits that he did not take his Oxycodone prior to working with therapy. Since resting, pain has improved. No chest pain or dyspnea. No BM today but is passing flatus. No abd pain or n/v. Tolerating diet. Review of Systems 2 Review of Systems: All systems reviewed and are unremarkable except as noted in HPI and below. Denies fever, chills, fatigue, headache, nasal congestion, sore throat, cough, chest pain, shortness of breath, palpitations, orthopnea, PND, abdominal pain, n/v/d, constipation, dysuria, hematuria, frequency, back pain, kin lesions or rashes. Physical Exam 2 Physical Exam: GENERAL: 58 yo Well-developed, well-nourished WM. No distress. LUNGS: Clear to auscultation bilaterally. No accessory muscle use. No W/R/R. CARDIOVASCULAR: Regular rate and rhythm. No M/G/R. No JVD. ABDOMEN: Soft, non-tender and non-distended. No palpable masses. Bowel sounds normoactive x 4 quad. EXTREMITIES: Left knee dressed and wrapped. Hemovac in place. Negative srinivasa's sign. No calf tenderness. Pulses intact b/l. SKIN: Warm, dry, intact. No rashes or lesions. Results & Data Results & Data Vital Signs (Past 12 Hours) Vital Signs Temp Pulse Resp BP Pulse Ox O2 Del Method 01/04/24 08:41 Room Air 01/04/24 05:29 36.5 C 63 16 113/75 98 Room Air 01/04/24 03:05 36.5 C 62 16 117/79 99 Room Air 01/03/24 23:00 36.6 C 85 16 113/67 96 Room Air Laboratory Results 01/04/24 05:52 01/04/24 05:52 PG Care Time/CCT Total # of Minutes Spent Total Time Spent with Patient: Total time spent is greater than 50% in coordination of care (as documented) at patient's floor/unit and/or counseling patient: Coding Level of Care Code 27066 SUB INP/OBS CARE 2/35MIN Diagnoses Status post total left knee replacement Z96.652 DVT prophylaxis Z29.9 Lyme disease A69.20 Gastroesophageal reflux disease without esophagitis K21.9 Esophagitis presence: without esophagitis Environmental allergies Z91.09 (4) GERD (gastroesophageal reflux disease) Esophagitis presence: without esophagitis Qualified Code(s): K21.9 - Gastro- esophageal reflux disease without esophagitis
[2024-01-05] MEDS ORDERED: ASPIRIN 81 MG ECTAB PO SCH (09:00)
--- NOTE | 2024-01-08 15:16 | Discharge Summary ---
Date of Service January 08, 2024 Admission HPI Per Admitting Provider Patient is an obese 58-year-old male with greater than 3-year history of bilateral knee pain left greater than right. The pain is associated with decreased range of motion weakness and instability. He has failed intra-a rticular injections with corticosteroids and viscosupplementation. He is also failed attempts at nerve ablation. He has radiographic evidence of severe disease of both knees and is admitted for elective left knee replacement as first of staged 2 knee replacements. Patient does have a history of von Willebrand's disease type I. He has had successful surgeries in the past with administration of DDAVP. He is arranged to get DDAVP on the morning of surgery. Admission Exam Per Admitting Provider Physical Exam: Weight 141 kg BMI 40 General: Obese male who appears to be older than his stated age. HEENT: NCAT, EOMI, PERRLA Neck: Negative bruits Heart: Regular rate and rhythm no murmurs appreciated Lungs: Breath sounds clear and present in all bermudez Abdomen: Obese soft nontender bowel sounds are positive Extremities: Left knee shows varus deformity passive range of motion is 0 to 115 degrees flexion with 3 to 4 mm of medial laxity positive effusion and pain Neurological and vascular: Intact Principal Diagnosis Left Knee Osteoarthritis Discharge Data Allergies Allergy/AdvReac Type Severity Reaction Status Date / Time adhesive Allergy Rash Verified 01/03/24 08:43 fluticasone Allergy Flushing, Verified 01/03/24 08:43 [From Flovent Diskus] tachycardia aspirin AdvReac Severe "Thins Verified 01/03/24 08:43 blood"/hx von Willebrand disease NSAIDS (Non-Steroidal AdvReac "Thins Verified 01/03/24 08:43 Anti-Inflamma blood"/hx von Willebrand disease Consultations 01/03/24 13:21 Consult Hospitalist Routine Procedures Performed Operation Date: 01/03/24 09:40 Actual Procedures p Left Total Knee Replacement(Left) - Sascha Villagran MD Ordered Studies 01/03/24 05:00 US - OR guided needle placemen Routine Hospital Course (1) Left knee DJD: Patient: MARGARETH BIRMINGHAM Jr Admit Date: 01/03/24 MR#: [id number] Att Phy: Sascha Villagran MD Acct ID: [id number] Rox Phy: Jennifer Pickett PA-C Date: 1965 Edvin Phy: Age: 58 Location: 3E Sex: M Room/Bed: E3-1 cc: ~ *NOTICE TO RECEIVING CONSTITUTION PARTY/AGENCY This information is strictly Confidential and protected under [place] law. [place] law prohibits you from making any further disclosure of this information unless further disclosure is expressly permitted by the written consent of the person to whom it pertains or is authorized by law. A general authorization for the release of medical or other information is not sufficient for this purpose. Hospital accepts no responsibility if the information is made available to any other person, INCLUDING THE PATIENT. Date of Service January 04, 2024 Assessment & Plan (1) Left knee DJD: Plan: Postop day 1 status post left TKA PT/OT protocols. Weightbearing as tolerated. DVT prophylaxis-SCDs. With patient's history of von Willebrand's disease, it was discussed with Dr. Marc concerning DVT prophylaxis. He also reached out to Dr. Hogan from hematology and plans will be to take 1 aspirin daily. Pain management as written. hyponatremia-patient was running low normal prior to surgery. As per Dr. Marc. DC planning-patient is planning for home health services upon discharge. Plan for discharge to home today if progressing with physical therapy and if okay with hospitalist team. (2) Von Willebrand disease: Admission and Anticipated Discharge Date Admission Date: January 03, 2024 Subjective postop day 1 Patient sitting up in bed awake and alert. Had some slight burning on urination this morning. Patient was up to the restroom last night and had no burning on urination. Otherwise feeling well. Pain is controlled. Physical Exam Physical Exam: dressings are clean, dry, and intact. Calves are soft nontender. Neurovascular is intact. Toes are mobile. Hemovac drainage was 125 cc earlier this morning. Results & Data Vital Signs (Past 12 Hours) Vital Signs Temp Pulse Resp BP Pulse Ox O2 Del Method 01/04/24 05:29 36.5 C 63 16 113/75 98 Room Air 01/04/24 03:05 36.5 C 62 16 117/79 99 Room Air 01/03/24 23:00 36.6 C 85 16 113/67 96 Room Air Laboratory Results Laboratory Results WBC 8.46 K/ul (4.8-10.8) 01/04/24 05:52 RBC 4.27 M/uL (4.70-6.10) L 01/04/24 05:52 Hgb 11.4 g/dl (14.0-18.0) L 01/04/24 05:52 Hct 35.7 % (42.0-52.0) L 01/04/24 05:52 MCV 83.6 fL (80.0-100.0) 01/04/24 05:52 MCH 26.7 pg (25.0-34.0) 01/04/24 05:52 MCHC 31.9 g/dL (32.0-36.0) L 01/04/24 05:52 RDW Std Deviation 41.9 fL (36.4-46.3) 01/04/24 05:52 RDW Coeff of Leonardo 13.7 % (11.5-14.5) 01/04/24 05:52 Plt Count 177 K/uL (130-400) 01/04/24 05:52 MPV 9.9 fL (9.4-12.4) 01/04/24 05:52 Sodium 133 mmol/L (136-145) L 01/04/24 05:52 Potassium 4.2 mmol/L (3.5-5.1) 01/04/24 05:52 Chloride 102 mmol/L (98-107) 01/04/24 05:52 Carbon Dioxide 26 mmol/L (21-32) 01/04/24 05:52 Anion Gap 5 (3-11) 01/04/24 05:52 BUN 14 mg/dl (6-23) 01/04/24 05:52 Creatinine 0.84 mg/dl (0.6-1.4) 01/04/24 05:52 Est Cr Clr Drug Dosing 139.3 ml/min 01/04/24 05:52 Est GFR ( Amer) 110.3 ml/min 01/04/24 05:52 Est GFR (Non-Af Amer) 95.2 ml/min 01/04/24 05:52 BUN/Creatinine Ratio 16.7 (10-20) 01/04/24 05:52 Glucose 103 mg/dl (70-99(Fasting)) H 01/04/24 05:52 Calcium 8.5 mg/dl (8.6-10.3) L 01/04/24 05:52 Impressions Knee X-Ray 01/03/24 13:17 LEFT KNEE 2 VIEWS History: Left total knee arthroplasty. Degenerative arthritis. Postop. FINDINGS: The patient is status post a left total knee arthroplasty. The hardware is intact. No fracture or dislocation. Surgical drains are in place. IMPRESSION: Left total knee arthroplasty. No evidence for hardware complication. ACT 112: Negative or not required by law. Electronically signed by: Keith Dunham M.D. 01/03/2024 2:18 PM Signed By: <Electronically signed by Sascha Villagran MD> 01/04/24 1144 <Electronically signed by Yuriy Valles PA-C> 01/04/24 0804 Created: 01/04/24 0758 Hospitalist assessment note POD 1: (2) DVT prophylaxis: Plan: - Discussed with the patient, orthopedics (Dr Villagran) and hematology (Dr Hogan). 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 CBC and BMP reviewed. No additional recommendations at this time. Will sign off as patient is medically stable for discharge. Plan of care has been d/w Dr. Evangelista. (2) Von Willebrand disease: Total Time Total Time Spent Total Time Spent (In Minutes): 10 Discharge Plan Discharge Items Patient Disposition: Home - Home Health Services Reason For Visit: Osteoarthritis Left Knee Discharge Diagnosis: Osteoarthritis Left Knee Activity: Per Instructions section Weightbearing: Full weightbearing Non-emergency contact: Surgeon Call non-emergency contact if: you have any medication questions, your pain is not controlled, your temperature is above 101.5, your wound has increased redness and your wound has increased drainage Follow-up/Referrals: [facility] [Outside] (as per surgeon's office) Sascha Villagran MD [Surgeon] - (Follow up with Dr. Villagran or his PA in 2 weeks from the day of your surgery for your first post operative visit) Jennifer Pickett, PA-C [Primary Care Provider] - Diet: Regular Addtl Attending Provider Instructions: DR. LIGHT POST-OP INSTRUCTIONS FOR TOTAL KNEE ARTHROPLASTY PLEASE REVIEW PRIOR TO SURGERY Day of Surgery You will be admitted and meet the nursing and anesthesia team. Dr. Villagran will see you and sign your operative side. Anesthesia will place your spinal anesthetic in the pre-op area Your surgery will be performed and last approximately 1 2 hours. Upon waking, you will notice a dressing and ice pack on your knee. If you purchased the Breg Cold Compression unit, this will be applied to your knee. You will remain in the recovery room for 1 2 hours, then be transferred to your room in the ambulatory surgical area if you are to go home the same day of your surgery or on the orthopedic floor if you will be staying overnight. Most of Dr. Light total knee patients go home the same day as surgery. This depends on how well you feel. Patients generally seem to feel better in their own home environment, and the risk of exposure to bad bugs is much lower. (Your post-operative medications will be sent to your pharmacy approximately 1-2 days prior to your procedure) Day 1 post-op (if you have an overnight stay in the hospital) You will have bloodwork drawn in the morning Physical therapy will evaluate you in the morning. You will start getting out of bed and ambulating with a walker. They will instruct you on knee motion exercises. Use your cold packs or your cold compression unit as instructed. This will decrease swelling and minimize pain. caregiver services home will discuss your discharge plan. Discharge will generally be around 11am Day 1 post-op (all patients) You will be taking Aspirin 81mg twice for 4 weeks to decrease the risk of a blood clot. You will most likely have a drain and ROSE (superficial wound VAC) dressing post-operatively covered by an ritu wrap dressing. (home nurse will remove ritu wrap/drain) This will keep your incision dry as well as aid in early healing. The batteries will wear out and the VAC will lose suction around day 6 7 post-op. At that time, you may turn off the device and disconnect it from your dressing. You may remove your dressing 10 days after surgery if it becomes bothersome and irritating to your skin. If the dressing appears to be saturated, please call our office. Day 2-14 post-op You will have a home nurse visit to assess your status and remov e your ritu wrap/drain on post-op day 2. You are permitted to shower immediately with the VAC. Do not soak the dressing let the shower flow on your opposite side, and pat dry the plastic. Once the dressing has been removed, you may shower normally with the incision exposed. Do not rub the area simply let soapy water run over the incision and lightly pat dry. Therapy will begin on post-op day 3. Your therapy prescription will be sent to your home therapy company/therapist You should continue doing your home exercises Week 2 post-op and forward You will have your first post-op appointment 2 weeks after surgery which should have been scheduled for you by our office. This appointment will be to check your incision, progression of therapy and pain control. You will continue to use a cane or a walker until you feel safe enough to stop using it. You will have a 6-week post-op appointment which should have been scheduled for you by our office. X-rays will be taken to evaluate the prosthesis. You will continue to advance range of motion. By 3 to 4 months after surgery, you should have almost full range of motion and may resume most activities. You may have some pain around the knee with certain activities this is completely normal. You will be scheduled for a 1-year post-op appointment to assess your outcome (sooner if Dr. Villagran feels it is necessary). Pain: The immediate post-op period after knee replacement surgery can be painf ul. You should take your pain medicine as you need it, especially prior to physical therapy and bedtime. Your pain WILL get better, and you may transition to a milder pain medicine (with less side effects, such as Tylenol) as soon as possible. It is common to have pain at night that interferes with sleep this can last for several months. Pain medicines can cause nausea and constipation do not take more than you need. You may be prescribed one or more of the following MEDICATIONS: 1. Celebrex this controls inflammation and makes pain medications m ore effective it will be taken once or twice a day 2. Tylenol a pain medicine that can help to decrease your pain you should take 1000mg three times a day 3. Tramadol a pain medicine that can be taken every 4-6 hours (instead of Oxycodone) as needed to control your pain 4. Oxycodone a VERY strong pain medicine that can be taken every 4- 6 hours (instead of Tramadol) as needed to control your pain. This medication has the most side effects. 5. Aspirin 81mg blood thinning medication to help minimize the risk of development of blood clots unfortunate side effects of pain medicine include nausea and constipation if you experience these issues or have any questions about your post-op medications, call [facility] at for assistance/advice on how to manage these issues Physical therapy is a VERY important part of knee replacement surgery. The office will arrange for a therapist to come to your home to instruct you on exercises. It is very important to practice on your own (or with the assistance of a family member). While in the hospital, you will be shown a series of home exercises you should perform these exercises 3 4 times daily in addition to physical therapy. After the completion of home therapy (approx. 2 weeks), most therapy exercises can be done on your own. You should get up to walk several times a day. Try not to stand longer than 1 hour at a time to minimize swelling. If you develop swelling, you need to elevate your legs/feet at or above the level of your heart. You may progress from walker to cane to ambulating independently as you feel comfortable. Unless it is an emergency, YOU ARE NOT PERMITTED TO HAVE ANY DENTAL CLEANING/WORK UNTIL 3 MONTHS AFTER SURGERY. You will be required to take an antibiotic prior to any dental cleaning or dental work in order to prevent your joint prothesis from getting infected. This medication is a one time per visit dose to be taken one hour prior to appointment. You may call our office for this prescription or your dentist may be willing to prescribe the medication. Remember to contact [facility] at if you develop any signs of infection which include increased swelling, pain, redness, drainage from incision, warmth, fever, chills or severe pain unrelieved by pain medication. If you develop any chest pain or shortness of breath, you should proceed immediately to the closest Emergency Room. It is normal to run a low-grade fever after surgery. If your fever is consistent at 101.0 or higher, you will need to contact the office. Stand-Alone Forms: [facility] Medications and DC Order Prescriptions: Continued albuterol sulfate 90 mcg/actuation HFA aerosol inhaler 2 puffs INH Q6H PRN (Reason: Shortness Of Breath) mometasone 50 mcg/actuation spray,non-aerosol 2 spray intranasal QAM fluticasone propionate [Flovent HFA] 110 mcg/actuation HFA aerosol inhaler 2 inh inhalation BID montelukast [Singulair] 10 mg Tablet 10 mg PO QAM cefuroxime axetil 500 mg Tablet 500 mg PO BID omeprazole 20 mg Tablet,Delayed Release (Dr/Ec) 20 mg PO QDL cetirizine 1 mg/mL Solution 10 mg PO QPM melatonin 5 mg Tablet 5 mg PO HS cholecalciferol (vitamin D3) [Vitamin D3] 125 mcg (5,000 unit) Tablet 250 mcg PO QAM Probiotic 3 billion cell Capsule 3,000 mmu cells PO QDL Rx Instructions: administer with a meal Imitrex 1 dose PO UD PRN (Reason: Migraine Headache) Rubén/Other Patient Handouts: Knee Surg Exercise After Admission Data Admit Date/Time: 01/03/24 13:17 Attending Provider: Sascha Villagran Admit Provider: Sascha Villagran Primary Care Provider: Jennifer Pickett Other Providers: Gregory Mark; Breonna,Home Health Other Interventions: Discharge Summary Assessment (RN) Last Done: 01/04/24 11:40
== END 2024-01-04 13:21 | disposition home health service (06) ==
LOC: 3E 08:00 → ASU 08:00
DX: Z91.048 Other nonmedicinal substance allergy status; E66.01 Morbid (severe) obesity due to excess calories; Z79.899 Other long term (current) drug therapy; R00.1 Bradycardia, unspecified; K21.9 Gastro-esophageal reflux disease without esophagitis; Z88.6 Allergy status to analgesic agent; M17.12 Unilateral primary osteoarthritis, left knee; J45.909 Unspecified asthma, uncomplicated; D68.00 Von Willebrand disease, unspecified; Z68.41 Body mass index [BMI] 40.0-44.9, adult

== ENCOUNTER 2024-04-24 06:49 | Observation (INO) ==
--- NOTE | 2024-04-14 11:20 | Anesthesiology Consultation ---
Date of Service April 14, 2024 Assessment & Plan (1) Encounter for pre-operative examination: - s/p left TKA 01/03/24 LMA#5 + PNB. No bolus ordered given that patient did not receive neuraxial anesthesia with previous TKA-to anesthesiologist discretion am DOS. - PAT clearance 11/27/23: - PCP visit (12/03/23): Additional allergy- Flovent (flushing, tachycardia) > "Pre-admission labs, CXR and EKG were reviewed today and are unremarkable.. Patient is medically cleared for bilateral knee replacement surgery and may proceed as scheduled" - Cardiology visit/note (12/20/23): "Low risk.. Patient is cleared for scheduled surgery" "SVT.. Symptoms are well-controlled at this point. His heart rate on his EKG today is 57 bpm and his recent monitor [12/13/23, 48h] was benign. I believe he can proceed with his upcoming knee surgery with an acceptably low risk for major adverse cardiovascular events of 5% or less. I do not think he needs any additional restratification at this point. [If] He did develop worsening symptoms of tachycardia and palpitation then we we will suggest that he reconsider ablation but for now he feels well." - Hematology note (11/29/23): "No contraindication to use of spinal or use of epidural anesthesia" - Outpatient joint assessment: Pt currently scheduled for inpatient pathway (confirmed by surgeon paperwork + patient, OR made aware). Hx von Willebrand disease (requiring preop DDAVP per heme/onc), patient post-op concern for pain management, BMI > 40. If surgeon requests review for outpatient joint pathway, patient is not recommended candidate for outpatient joint program from anesthesia standpoint based upon available information. - Per mobile lounge driver on 04/14/24: No known infectious disease contacts, current infectious disease symptoms in past 10 days or COVID positive test result in the past 30 days. Chart Review Chart Review: Acceptable Risk for Surgery and Patient NOT seen in Pre Admission Testing History Surgery Operation Date: 04/24/24 09:25 Proposed Procedures p Right Total Knee Replacement - Sascha Villagran MD Height/Weight Height: 6 ft 2 in Weight: 139.706 kg Allergies Allergy/AdvReac Type Severity Reaction Status Date / Time adhesive Allergy Mild Rash Verified 04/11/24 11:39 fluticasone Allergy Mild Flushing, Verified 04/11/24 11:39 [From Flovent Diskus] tachycardia aspirin AdvReac Severe "Thins Verified 01/03/24 08:43 blood"/hx von Willebrand disease NSAIDS (Non-Steroidal AdvReac Mild "Thins Verified 04/11/24 11:39 Anti-Inflamma blood"/hx von Willebrand disease Medications Home Medications Medication Instructions Recorded Confirmed Last Taken albuterol sulfate 90 mcg/actuation 2 puffs inhalation Q6H PRN 03/20/19 04/14/24 Unknown aerosol inhaler Shortness Of Breath mometasone 50 mcg/actuation nasal 2 spray intranasal QAM 03/20/19 04/14/24 01/03/24 06:00 spray cefuroxime axetil 500 mg tablet 500 mg PO BID 11/14/23 04/14/24 01/03/24 06:00 cetirizine 1 mg/mL oral solution 10 mg PO QPM 11/14/23 04/14/24 01/03/24 06:00 cholecalciferol (vitamin D3) 125 250 mcg PO QAM 11/14/23 04/14/24 01/02/24 06:00 mcg (5,000 unit) tablet (Vitamin D3) lactobacillus combination no.4 3 3,000 mmu cells PO QDL 11/14/23 04/14/24 01/02/24 12:00 billion cell capsule (Probiotic) melatonin 5 mg tablet 5 mg PO 11/14/23 04/14/24 01/02/24 21:00 montelukast 10 mg tablet 10 mg PO QA 11/14/23 04/14/24 01/03/24 06:00 (Singulair) omeprazole 20 mg tablet,delayed 20 mg PO QDL 11/14/23 04/14/24 01/02/24 12:00 release Magnesium Mylate 225 mg PO QAM 04/11/24 04/14/24 Unknown beclomethasone dipropionate 80 80 mcg inhalation 04/11/24 04/14/24 Unknown mcg/actuation aerosol inhaler magnesium glycinate 100 mg (as 120 mg PO 04/11/24 04/14/24 Unknown glycinate) tablet (Mag Glycinate) pregabalin 50 mg capsule (Lyrica) 50 mg PO BID 04/11/24 04/14/24 Unknown sumatriptan succinate 50 mg tablet 50 mg PO DAILY PRN migraines 04/11/24 04/14/24 Unknown (Imitrex) Past Medical History Medical History (Updated 04/14/24 @ 11:16 by Mala Rossi PA-C) Allergy-induced asthma Bradycardia Chronic, baseline HR 50s per patient Fibromyalgia GERD (gastroesophageal reflux disease) History of cellulitis 2019 History of degenerative disc disease History of migraine History of paroxysmal supraventricular tachycardia Follows with cardiology (Dr. Henry/[facility]) [place] (hard of hearing) Left ear Lyme disease Positive Lyme testing 06/2023- prescribed Ceftin BID x 6 months and continues on this till after surgery Osteoarthritis Von Willebrand disease is to have DDAVP prior to surgery and is planning to stay overnight as 23 hour OBS Follow with Hemetology [facility] Past Family History Family History Mother Lymphoma Grandmother (Maternal) Stroke Father Diabetes Other No family history of adverse response to anesthesia Past Surgical History Surgical History History of anesthesia reaction 12/2023 surgery --- he did not have any issues ----"Choking" feeling with anesthesia emergence with CTR, told he "woke up too early" Patient states that he has been told to use "small ETT" and has "smaller esophagus" Also states "takes longer for Novocain to work" with dental procedures and "narcotics aren't effective for pain for me" History of carpal tunnel release of both wrists History of colonoscopy History of esophagogastroduodenoscopy (EGD) History of inguinal hernia repair, bilateral 1963 History of left knee replacement History of tooth extraction History of varicose veins of lower extremity s/p surgery (2008), Dr. Cain Social History Smoking Status: Never smoker Do You Dip or Chew Tobacco: No Hx Alcohol Use: No Alcohol type: wine alcohol intake frequency: holidays/special occasions only Hx Substance Use: No substance use type: does not use Lab Results Anesthesia Preop Results Results Anesthesia Widget: WBC 5.53 K/ul (4.8-10.8) 04/01/24 Hgb 12.8 g/dl (14.0-18.0) L 04/01/24 Hct 42.3 % (42.0-52.0) 04/01/24 Plt 259 K/uL (130-400) 04/01/24 Na 141 mmol/L (136-145) 04/01/24 K 4.9 mmol/L (3.5-5.1) 04/01/24 Cl 107 mmol/L (98-107) 04/01/24 CO2 29 mmol/L (21-32) 04/01/24 BUN 15 mg/dl (6-23) 04/01/24 Creat 0.72 mg/dl (0.6-1.4) 04/01/24 Glucose Level 90 mg/dl (70-99(Fasting)) 04/01/24 PT 10.2 Seconds (9.0-12.0) 04/01/24 PTT 29 Seconds (21-31) 04/01/24 INR 0.9 (0.9-1.1) 04/01/24 Urine Color Yellow 04/01/24 Urine Appearance Clear (Clear) 04/01/24 Urine pH 6.5 (4.5-7.5) 04/01/24 Urine Specific [place] 1.022 (1.000-1.030) 04/01/24 Urine Protein Negative (Negative) 04/01/24 Urine Glucose (UA) Negative (Negative) 04/01/24 Urine Ketones Negative (Negative) 04/01/24 Urine Blood Negative (Negative) 04/01/24 Urine Nitrite Negative (Negative) 04/01/24 Urine Bilirubin Negative (Negative) 04/01/24 Urine Urobilinogen Negative (Negative) 04/01/24 Urine Leukocyte Esterase Negative (Negative) 04/01/24 Testing Electrocardiogram Date: 12/20/23 Sinus bradycardia, rate 57 bpm Minimal voltage criteria for LVH, may be normal variant Chest X-Ray Date: 11/27/23 No acute chest disease. Stress Test Date: 06/11/18 Myocardial perfusion imaging study appears normal following pharmacologic stress MPHR 85% No perfusion abnormality is identified EF 65-70% Other Testing Cardiac event monitor 12/13/23 Essentially benign Holter monitor. Sinus rhythm with avg rate of 60 bpm, intermittent moderate sinus bradycardia with a minimum rate of 38 bpm which occurs in the ophthalmology technician hours when vagal tone is high and the patient was presumably sleeping. Very rare PACs and PVCs with one 5 beat run of relatively slow supraventricular tachycardia
--- NOTE | 2024-04-22 15:51 | History & Physical Report ---
Date of Service April 22, 2024 Assessment & Plan (1) DJD (degenerative joint disease) of knee: Plan: Right total knee replacement with patient's specific technology patient will be receiving DDAVP preoperatively. Plan will be for overnight stay and then disc harged to home with [facility] (2) Von Willebrand disease: History of Present Illness Chief Complaint: Right knee pain Primary Care Provider: Jennifer Pickett Patient is an obese 58-year-old male with an extensive medical history which includes von Willebrand's disease type I. He has a history of severe bilateral knee arthritis for greater than 3 years. He is status post successful left total knee replacement 01/02 where he was given preoperative DDAVP. He now presents with weakness decreased range of motion instability of the right knee. He has failed both injections of cortisone and viscosupplementation. He has tried nerve ablation and has failed. He is planned for elective knee replacement surgery and will be receiving DDAVP on the morning of surgery. Allergies Allergy/AdvReac Type Severity Reaction Status Date / Time adhesive Allergy Mild Rash Verified 04/11/24 11:39 fluticasone Allergy Mild Flushing, Verified 04/11/24 11:39 [From Flovent Diskus] tachycardia aspirin AdvReac Severe "Thins Verified 01/03/24 08:43 blood"/hx von Willebrand disease NSAIDS (Non-Steroidal AdvReac Mild "Thins Verified 04/11/24 11:39 Anti-Inflamma blood"/hx von Willebrand disease Home Medications Medication Instructions Recorded Confirmed Type albuterol sulfate 90 mcg/actuation 2 puffs inhalation Q6H PRN 03/20/19 04/14/24 History aerosol inhaler Shortness Of Breath mometasone 50 mcg/actuation nasal 2 spray intranasal QAM 03/20/19 04/14/24 History spray cefuroxime axetil 500 mg tablet 500 mg PO BID 11/14/23 04/14/24 History cetirizine 1 mg/mL oral solution 10 mg PO QPM 11/14/23 04/14/24 History cholecalciferol (vitamin D3) 125 250 mcg PO QAM 11/14/23 04/14/24 History mcg (5,000 unit) tablet (Vitamin D3) lactobacillus combination no.4 3 3,000 mmu cells PO QDL 11/14/23 04/14/24 Histo ry billion cell capsule (Probiotic) melatonin 5 mg tablet 5 mg PO HS 11/14/23 04/14/24 History montelukast 10 mg tablet 10 mg PO QAM 11/14/23 04/14/24 History (Singulair) omeprazole 20 mg tablet,delayed 20 mg PO QDL 11/14/23 04/14/24 History release Magnesium Mylate 225 mg PO QAM 04/11/24 04/14/24 History beclomethasone dipropionate 80 80 mcg inhalation HS 04/11/24 04/14/24 History mcg/actuation aerosol inhaler magnesium glycinate 100 mg (as 120 mg PO HS 04/11/24 04/14/24 History glycinate) tablet (Mag Glycinate) pregabalin 50 mg capsule (Lyrica) 50 mg PO BID 04/11/24 04/14/24 History sumatriptan succinate 50 mg tablet 50 mg PO DAILY PRN migraines 04/11/24 04/14/24 History (Imitrex) Past Med/Surg History Problem List (Updated 04/22/24 @ 15:50 by Sascha Villagran MD) DJD (degenerative joint disease) of knee Status post total left knee replacement DVT prophylaxis Left knee DJD Von Willebrand disease Follows with Dr. Phan/[facility] Preop DDAVP to be administered prior to Left TKA per surgeon, heme/onc order scanned into system already Right-sided chest pain (Acute) 02/03/20 Esophageal pain (Acute) 02/03/20 Dysphagia Environmental allergies (Chronic) Asthma (Chronic) Paroxysmal SVT (supraventricular tachycardia) (Chronic) Medical History Von Willebrand disease is to have DDAVP prior to surgery and is planning to stay overnight as 23 hour OBS Follow with Hemetology [facility] History of cellulitis 2019 History of degenerative disc disease Osteoarthritis GERD (gastroesophageal reflux disease) [place] (hard of hearing) Left ear Fibromyalgia History of migraine Bradycardia Chronic, baseline HR 50s per patient History of paroxysmal supraventricular tachycardia Follows with cardiology (Dr. Henry/[facility]) Lyme disease Positive Lyme testing 06/2023- prescribed Ceftin BID x 6 months and continues on this till after surgery Allergy-induced asthma Surgical History History of varicose veins of lower extremity s/p surgery (2008), Dr. Cain History of left knee replacement History of inguinal hernia repair, bilateral 1964 History of anesthesia reaction 12/2023 surgery --- he did not have any issues ----"Choking" feeling with anesthesia emergence with CTR, told he "woke up too early" Patient states that he has been told to use "small ETT" and has "smaller esophagus" Also states "takes longer for Novocain to work" with dental procedures and "narcotics aren't effective for pain for me" History of tooth extraction History of carpal tunnel release of both wrists History of esophagogastroduodenoscopy (EGD) History of colonoscopy Family History Mother Lymphoma Grandmother (Maternal) Stroke Father Diabetes Other No family history of adverse response to anesthesia Social History Smoking Status: Never smoker Second Hand Exposure: No; Do You Dip or Chew Tobacco: No; Tobacco Cessation Education Requested by Patient: No Hx Alcohol Use: No Hx Substance Use: No Preferred Language: Croatian Communication Ability: Effective Visual Impairment: Limited Hearing Ability: Normal Organ Teacher Required: No Beliefs That Will Affect Care: None marital status: Current Living Situation: Spouse current occupational status: employed Other Information That Helps Us Care for You: No Feels Safe at Home: Yes Safety Concerns: Feels Safe At This Time Assistive Devices: None Review of Systems Review of Systems: Knee pain and instability Physical Exam Physical Exam: Weight 141 kg BMI 40 General: Obese male who appears slightly older than his stated age HEENT: NCAT, EOMI, PERRLA Neck: Supple without bruits Heart: Regular rate and rhythm without murmurs Lungs: Breath sounds clear and present in all bermudez Abdomen: Obese soft nontender bowel sounds positive Extremities: Right knee shows varus deformity passive range of motion is 0 to 115 degrees there is 3 to 4 mm medial laxity positive effusion and pain, left knee shows well-healed scar with range of motion 0-110 limited by the size of the patient's leg Neurological and vascular: Intact Results & Data Results & Data Vital Signs (Past 12 Hours) Blood pressure 128/80 Pulse 57
[~2024-04-24 06:49] MED LIST changes: +DEXAMETHASONE SOD INJ 4 MG/ML VIAL ONE; +EPINEPHrine INJ 1 MG/ML AMP ONE; -LR 500ML BOLUS, THEN 15ML/HR IV SCH; +[UNRECOGNIZED DRUG - REMARK] SCH; +[UNRECOGNIZED DRUG - REMARK] SCH
--- OUTSIDE RECORDS SUMMARY | 2024-04-24 07:03 | External Medical Summary | Summary of Care ---
Author Name Unknown Organization [facility] Address [address] [place] [address] Phone [phone] Care Team Providers Care Pathology Laboratory Technologist Name Role Phone Jennifer Torrez PA-C Primary Care Provid er Reason for Visit * Reason Onset Date Comments Appointment 04/08/2024 Encounter Details Date Type Department Care Team (Late st Contact Info) Description 04/08/2024 Telephone Hematology Oncology, [place] [address] [address] [place] [address] Biju Lyles MD [address] [place] [phone] Appointment Allergies Active Allergy Reactions Criticality Noted Date Comments Fluticasone Furoate Flushing Low 02/05/2020 Tolerates Flovent (fluticasone) inhaler Aspirin 07/27/2014 Bleeding Nsaids 12/27/2023 documented as of this encounter (statuses as of 04/08/2024) Medications Medication Sig Dispensed Refills Start Date End Date Status Albuterol Sulfate 108 (90 Base) MCG/ACT AEPB Inhale 2 Puffs by mouth every 6 hours as needed for Dyspnea. Active Mometasone Furoate 50 MCG/ACT AERO Inhale by mouth daily. Active Melatonin 1 MG Capsule Take 5 Capsules by mouth at bedtime. Active Fluticasone Propionate HFA 110 MCG/ACT Inhalation Aerosol Inhale 2 Puffs by mouth in the morning and 2 Puffs before bedtime. Active Cetirizine HCl 10 MG Oral Capsule Take 1 Capsule by mouth in the morning. Active Montelukast Sodium 10 MG Oral Tablet Take 1 Tablet by mouth at bedtime. Active Omeprazole 20 MG Oral Capsule Delayed Release (PriLOSEC) once a day Active Cefuroxime Axetil 500 MG Oral Tablet (Ceftin)Indications: Borderline results on serologic testing for Lyme disease Take 1 Tablet by mouth in the morning and 1 Tablet before bedtime. 180 Tablet 3 07/16/2023 Active Vitamin D 125 MCG (5000 UT) Oral Capsule Take by mouth. Taking 10,000 ui Active Pregabalin 50 MG Oral Capsule (Lyrica) Take 1 Capsule by mouth in the morning and 1 Capsule before bedtime. 180 Capsule 3 03/31/2024 Active Magnesium 80 MG Oral Tablet 225 mg am and 120 mg at night 04/07/2024 Active Probiotic & Acidophilus Ex St Oral Capsule Take 1 Capsule by mouth daily. 04/07/2024 Active Desmopressin Acetate 1.5 MG/ML Nasal Solution (Stimate)Indications :Von Willebrand's disease (HCC),Nasal bleeding As needed -->nasal bleeding --> 150 mcg (1 spray) in each nostril (total dose: 300 mcg). Can repeat dose 12 hrs later and then daily for 2 more doses. 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 (Adult - for ages 18 years and over) Not on file 02/05/2024 Is your family able to pay t he heat, water, or electric bill? (Household - for ages 0-17 years) Not on file 02/05/2024 Does your family have access to good internet? (Household - for ages 0-17 years) Not on file 02/05/2024 Social Connections Answer Date Recorded How often do you feel lonely or isolated from those around you? (Adult - for ages 18 years and over) Not on file 02/05/2024 Sex and Gender Information Value Date Recorded Sex Assigned at Male 12/21/2022 11:27 AM EDT Gender Identity Male 12/21/2022 11:27 AM EDT Sexual Orientation Heterosexual 12/21/2022 11 :27 AM EDT Job Start Date Occupation Industry Not on file Not on file Not on file documented as of this encounter Functional Status Functional Status Response [...] (15 years old or older) No 02/04/20 20 Cognitive Status Response Date of Assessm ent Because of a physical, menta l, or emotional condition, do you have serious difficulty concentrating, remembering, or making decisions? (5 years old or older) No 02/04/2020 documented as of this encounter Miscellaneous Notes * Telephone Encounter - Cinthia Tapia OSA - 04/08/2024 4:58 PM EDT Yes its 05-09-2024 @ 10:00. Was scheduled by scheduling. Do you want me to move it later in the day? Cinthia Cardona documented in this encounter Plan of Treatment Upcoming Encounters Date Type Department Care Team (Late st Contact Info) Description 05/05/2024 10:00 AM EDT Office Visit Rheumatology, [facility] [address] [place] [address] Dr [address] Floor [place] [phone] Kerrie Hayes MD [address] [place] [address] [place] [id number] 05/09/2024 10:00 AM EDT Telemedicine Hematology Oncology, [place] [address] [place] [address] Biju Lyles MD [address] [place] [address] [place] [phone] Scheduled Procedures Name Priority Associated Diagnoses Date/Ti me COLONOSCOPY FLEXIBLE PROXIMA L DIAGNOSTIC Recall Special screening for malignant neoplasms, colon Health Maintenance Due Date Last Done Comments Lipid Panel 1963 Depression Screening 1975 HIV Screening 1978 Hepatitis C Screening 1981 Cologuard 2008 Fecal Occult Blood Test 2008 Sigmoidoscopy 2008 Zoster Vaccines (2 of 2) 12/22/2021 10/27/2021 *SPIROMETRY ONCE FOR ASTHMA-ADULT 07/13/2022 COVID-19 Vaccine (2022- season) 2023 05/10/2022, 03/01/2022, 06/23/2021, Additional history exists DTaP,Tdap,and Td Vaccines (2 - Td or Tdap) 07/08/2023 07/08/2013 Influenza Vaccine (FLU shot) (#1) 2024 04/26/2023, 05/31/2022, 05/19/2021, Additional history exists Colonoscopy 07/28/2024 07/28/2014 Colorectal Cancer Screening 07/28/2024 Diabetes Screening 04/07/2027 04/07/2024, 1 09/26/2022, 12/28/2022, Additional history exists Pneumococcal Vaccine: Pediatrics (0 to 5 Years) and At-Risk Patients (6 to 64 Years) (3 of 3 - PPSV23 or PCV20) 2028 03/31/2020, 07/08/2013 HPV (Gardasil) Vaccine Aged Out No lo nger eligible based on patient's age to complete this topic Hepatitis B Vaccine Aged Out No longe r eligible based on patient's age to complete this topic MENINGOCOCCAL (MENACTRA/MENVEO) Aged Out No longer eligible based on patient's age to complete this topic documented as of this encounter Medical Devices Not on filedocumented as of this encounter Advance Directives * Full Code (Latest Code Status on File) Date Activated Date Inactivated Comments 12/29/2020 9:27 AM 12/29/2020 2:38 PM Question Answer Comments Discussion of Advance Directives occurred with: Not Discussed * Full Code Date Activated Date Inactivated Comments 02/04/2020 12:57 AM 02/06/2020 8:20 PM This order reflects the patients wishes and were consensually agreed upon. Question Answer Comments Discussion of Advance Directives occurred with: Patient Care Teams Pathology Laboratory Technologist Relationship Specialty Start Date End Date Jennifer Torrez PALupilloC [address] [facility] [place] [address] PCP - General Physician Bank Worker 12/31/18 documented as of this encounter
--- OUTSIDE RECORDS SUMMARY | 2024-04-24 07:03 | External Medical Summary | Summary of Care ---
Author Name Unknown Organization [facility] Address [address] [place] [address] Phone [phone] Care Team Providers Care Senior Abap Developer Name Role Phone Jennifer Torrez PA-C Primary Care Provid er Encounter Details Date Type Department Care Team (Late st Contact Info) Description 04/16/2024 Orders Only Ancillary, Hematology Oncology, [place] [address] [place], [place] [id number] Biju Lyles MD [address] [place] [phone] Von Willebrand's disease (HCC); Nasal bleeding Allergies Active Allergy Reactions Criticality Noted Date Comments Fluticasone Furoate Flushing Low 02/05/2020 Tolerates Flovent (fluticasone) inhaler Aspirin 07/27/2014 Bleeding Nsaids 12/27/2023 documented as of this encounter (statuses as of 04/16/2024) Medications Medication Sig Dispensed Refills Start Date [...] Active Cefuroxime Axetil 500 MG Oral Tablet (Ceftin)Indication s:Borderline results on serologic testing for Lyme disease [...] 1 Capsule by mouth daily. 04/07/2024 Active Easy Iron 28 MG Oral Capsule (Ferrous Bisglycinate Chelate)Indication s:Iron deficiency anemia due to chronic blood loss Take 2 Capsules by mouth every other day. 90 Capsule 2 04/10/2024 Active Desmopressin Acetate 1.5 MG/ML Nasal Solution (Stimate)Indicatio ns:Von Willebrand's disease (HCC),Nasal bleeding As needed -->nasal bleeding --> 150 mcg (1 spray) in each nostril (total dose: 300 mcg). Can repeat dose 12 hrs later and then daily for 2 more doses. 35 day supply. 5 mL 6 04/16/2024 Active Desmopressin Acetate 1.5 MG/ML Nasal Solution (Stimate)Indicatio ns:Von Willebrand's disease (HCC),Nasal bleeding As needed -->nasal bleeding --> 150 mcg (1 spray) in each nostril (total dose: 300 mcg). Can repeat dose 12 hrs later and then daily for 2 more doses. 35 day supply. 5 mL 6 04/10/2024 Discontinue d(Refill) documented as of this encounter (statuses as of 04/16/2024) Active Problems Problem Noted Date Diagnosed Date [...] as of this encounter (statuses as of 04/16/2024) Immunizations Name Administration Dates Next Due COVID-19 mRNA, LNP-s, No Pre serve, 2-Dose Series ([employer] 06/23/2021 COVID-19, LNP-s, No Preserve , Kaz-sucrose, Ages 12+ ([employer] 05/10/2022,03/01/2022 Pneumococcal Conjugate Vacc, 13 Valent (Prevnar) [...] No 02/04/2020 documented as of this encounter Plan of Treatment Upcoming Encounters Date Type Department Care Team (Late st Contact Info) Description 05/05/2024 10:00 AM EDT Office Visit [facility] [address] [place] [address] Dr [address] [place] [phone] Kerrie Hayes MD [place] [address] 05/09/2024 10:00 AM EDT Telemedicine Hematology Oncology, [place] [address] [place] [address] Biju Lyles MD [address] [place] [phone] Scheduled Procedures Name Priority Associated Diagnoses Date/Ti [...] 2023 05/10/2022, 03/01/2022, 06/23/2021, Additional history exists DTap/Tdap Vaccines (2 - Td or Tdap) 07/08/2023 [...] as of this encounter Visit Diagnoses Diagnosis Von Willebrand's disease (HCC) Von Willebrand's disease Nasal bleeding Epistaxis documented in this encounter Advance Directives * Full Code [...] Advance Directives occurred with: Patient Care Teams Senior Abap Developer Relationship Specialty Start Date End Date Jennifer Torrez PA-C [address] [place] [address] [place] [id number] PCP - General Physician Armature And Rotor Winder 12/31/18 documented as of this encounter
--- OUTSIDE RECORDS SUMMARY | 2024-04-24 07:03 | External Medical Summary | Summary of Care ---
Author Name Unknown Organization [facility] Address [address] [place] [address] Phone [phone] Care Team Providers Care Construction Teacher Name Role Phone Jennifer Torrez PA-C Primary Care Provid er Reason for Visit * Reason Onset Date Comments Appointment 04/08/2024 Encounter Details Date Type Department Care Team (Late st Contact Info) Description 04/08/2024 Telephone Hematology Oncology, [place] [address] [place] [address] Biju Lyles MD [address] [place] [phone] Appointment Allergies Active Allergy Reactions Criticality [...] encounter Miscellaneous Notes * Telephone Encounter - Gwen Fulton OSA - 04/08/2024 9:17 AM EDT Kade got pt scheduled for 4 week follow up. Just wanted to make you aware. Thank you * Telephone Encounter - Cinthia Tapia OSA - 04/08/2024 8:55 AM EDT LVM to return our call to schedule from dispo on 04-07-[address] Lyles Check labs today 4 week home video visit documented in this encounter Plan of Treatment Upcoming Encounters Date Type Department Care Team (Late st Contact Info) Description 05/05/2024 10:00 AM EDT [facility] [address] [place] [address] 1[address] Floor [place] [phone] Kerrie Hayes MD [address] [place] [address] [place] [address] 05/09/2024 10:00 AM EDT Telemedicine Hematology Oncology, [place] [address] [place] [address] Biju Lyles MD [address] [place] [address] [place] [phone] Scheduled Procedures Name Priority Associated Diagnoses Date/Ti [...] ONCE FOR ASTHMA-ADULT 07/13/2022 COVID-19 Vaccine ( - 2022- season) 2023 05/10/2022, 03/01/2022, 06/23/2021, Additional history [...] Advance Directives occurred with: Patient Care Teams Construction Teacher Relationship Specialty Start Date End Date Jennifer Torrez PA-C [address] [place] [phone] PCP - General Physician Sample Maker Original 12/31/18 documented as of this encounter
--- OUTSIDE RECORDS SUMMARY | 2024-04-24 07:03 | External Medical Summary | Summary of Care ---
Author Name Unknown Organization [facility] Address [address] [place] [address] Phone [phone] Care Team Providers Care Mill Stenciler Name Role Phone Jennifer Torrez PA-C Primary Care Provid er Reason for Visit * Reason Onset Date Comments Advice 04/08/2024 [email or web address] Encounter Details Date Type Department Care Team (Late st Contact Info) Description 04/08/2024 Telephone Hematology Oncology, [place] [address] [place] [address] Services, Scheduling [address] [place] [address] Advice (abdulkadir) Allergies Active Allergy Reactions Criticality Noted Date [...] encounter Miscellaneous Notes * Telephone Encounter - Marjorie Falcon RN - 04/08/2024 10:45 AM EDT Lab results from 04/07/2024 faxed to patient's PCP office at [phone]. * Telephone Encounter - Gwen Fulton OSA - 04/08/2024 9:14 AM EDT Kade pt calling in asking if his lab results could be sent over to his pcp as well. Also got him scheduled for his 4 week follow up. Any questions please reach out to pt Thank you documented in this encounter Plan of Treatment Upcoming Encounters Date Type Department Care Team (Late st Contact Info) Description 05/05/2024 10:00 AM EDT Office Visit [facility] [address] [place] [phone] Kerrie Hayes MD [address] [place] [address] [place] [address] 05/09/2024 10:00 AM EDT Telemedicine Hematology Oncology, [place] [address] [place] [address] Biju Lyles MD [address] [place] [address] [place] [phone] Scheduled Procedures Name Priority [...] Advance Directives occurred with: Patient Care Teams Mill Stenciler Relationship Specialty Start Date End Date Jennifer Torrez, PA-C [address] [place] [address] PCP - General Physician Assembler Production Line 12/31/18 documented as of this encounter
--- OUTSIDE RECORDS SUMMARY | 2024-04-24 07:04 | External Medical Summary | Summary of Care ---
Author Name Unknown Organization [facility] Address [address] [place] [address] Phone [phone] Care Team Providers Care Store Receiving Specialist Name Role Phone Jennifer Torrez PA-C Primary Care Provid er Reason for Visit * Reason Onset Date Comments Appointment 04/08/2024 Encounter Details Date Type Department Care Team (Late st Contact Info) Description 04/08/2024 Telephone Hematology Oncology, [place] [address] [address] [place] [address] Biju Lyles MD [address] [place] [phone] Appointment Allergies Active Allergy Reactions Criticality [...] 05/05/2024 10:00 AM EDT Office Visit Rheumatology, [place] [facility] [address] [place] [address] Dr [address] [place] [phone] Kerrie Hayes MD [address] [place] [address] [place] [address] 05/09/2024 10:00 AM EDT Telemedicine Hematology Oncology, [place] [address] [place] [address] Biju Lyles MD [address] [place] [address] [place] [phone] Scheduled Procedures Name Priority Associated Diagnoses Date/Ti [...] Advance Directives occurred with: Patient Care Teams Store Receiving Specialist Relationship Specialty Start Date End Date Jennifer Torrez PA-C [address] [facility] [place] [phone] PCP - General Physician Cell Assembly Pinner 12/31/18 documented as of this encounter
--- OUTSIDE RECORDS SUMMARY | 2024-04-24 07:04 | External Medical Summary ---
Author Name Unknown Address Unknown Organization : Laboratory Report Ordering Provider Test Date Status MAYCO REYES 04/07/2024 16:27:06 Final If needed - if nasal DDAVP i s used check labs a few days later Observation Date Value Abnormality Reference (Units ) Status BUN 04/07/2024 16:27:06 17 6-20 (mg/dL) Final Creatinine 04/07/2024 16:27:06 0.8 0.6-1.2 (mg/dL) Final Glomerular filtration rate/1.73 sq M.predicted [Volume Rate/Area] in Serum, Plasma or Blood by Creatinine-based formula (CKD-EPI) 04/07/2024 16:27:06 >90 >=60 (mL/min) Final eGFR is calculated based on the CKD-EPI 2020 equation. Sodium 04/07/2024 16:27:06 142 135-146 (m mol/L) Final Potassium 04/07/2024 16:27:06 4.7 3.5-5.1 (m mol/L) Final Cl 04/07/2024 16:27:06 106 98-107 (mm ol/L) Final CO2 04/07/2024 16:27:06 26 22-32 (mmo l/L) Final Anion gap 04/07/2024 16:27:06 10 7-15 (mmol /L) Final Glucose 04/07/2024 16:27:06 96 70-120 (mg /dL) Final Albumin 04/07/2024 16:27:06 4.3 3.8-5.0 (g /dL) Final AST (Aspartate aminotransferase) 04/07/2024 16:27:06 28 10-50 (U/L) Final Alk Phos 04/07/2024 16:27:06 74 35-130 (U/ L) Final Bilirubin, Total 04/07/2024 16:27:06 0.4 <=1 .2 (mg/dL) Final Calcium 04/07/2024 16:27:06 9.8 8.4-10.2 ( mg/dL) Final Protein 04/07/2024 16:27:06 7.6 6.0-8.3 (g /dL) Final ALT (Alanine aminotransferase) 04/07/2024 16:27:06 17 10-50 (U/L) Final Performing Location
--- OUTSIDE RECORDS SUMMARY | 2024-04-24 07:04 | External Medical Summary ---
Author Name Unknown Address Unknown Organization K01:[facility] [place] [address] [place] [address] Laboratory Report Ordering Provider Test Date Status MAYCO REYES 04/07/2024 16:27:06 Final Observation Date Value Abnormality Reference (Units ) Status Vitamin B12 04/07/2024 16:27:06 428 697-2110 (pg/mL) Final Performing Location [facility] - [address] [place] [address]
--- OUTSIDE RECORDS SUMMARY | 2024-04-24 07:04 | External Medical Summary ---
Author Name Unknown Address Unknown Organization K01:[facility] - [address] [facility] [place] [address] Laboratory Report Ordering Provider Test Date Status MAYCO REYES 04/07/2024 16:27:06 Final Observation Date Value Abnormality Reference (Units ) Status PSA 04/07/2024 16:27:06 0.57 <4.10 (ng/ mL) Final Performing Location [facility] - [address] [place] [address]
--- OUTSIDE RECORDS SUMMARY | 2024-04-24 07:04 | External Medical Summary ---
Author Name Unknown Address Unknown Organization : Laboratory Report Ordering Provider Test Date Status MAYCO REYES 04/07/2024 16:27:06 Final Observation Date Value Abnormality Reference (Units ) Status SYNC LEUKOCYTES IN BLOOD BY AUTOMATED COUNT 04/07/2024 16:27:06 5.75 4.00-10.80 (K/uL) Final Segs 04/07/2024 16:27:06 53.5 40.0-75.0 (%) Final Lymphs % 04/07/2024 16:27:06 35.0 18.0-42.0 (%) Final Monos 04/07/2024 16:27:06 5.7 1.0-11.0 (%) Final Eosinophils 04/07/2024 16:27:06 4.0 0.0-6.0 (%) Final Basos 04/07/2024 16:27:06 1.6 0.0-2.0 (%) Final Immature Granulocyte, Percent 04/07/2024 16:27:06 0.2 0.0-2.0 (%) Final Absolute Segs 04/07/2024 16:27:06 3.08 1.80-7.70 (K/uL) Final Lymphs, absolute 04/07/2024 16:27:06 2.01 1.00-4.80 (K/ul) Final Monos, Abs 04/07/2024 16:27:06 0.33 0.00-1.10 (K/uL) Final Eos, Abs 04/07/2024 16:27:06 0.23 0.00-0.70 (K/uL) Final Basos, Abs 04/07/2024 16:27:06 0.09 0.00-0.20 (K/uL) Final Immature Granulocytes, Number 04/07/2024 16:27:06 0.01 0.00-0.20 (K/uL) Final Performing Location
--- OUTSIDE RECORDS SUMMARY | 2024-04-24 07:04 | External Medical Summary | Summary of Care ---
Author Name Unknown Organization [facility] Address [address] [place] [address] Phone [phone] Care Team Providers Care Automatic Bow Maker Machine Tender Name Role Phone Jennifer Torrez PA-C Primary Care Provid er Reason for Visit * Reason Comments NEW PATIENT * Evaluate & Treat - Unlimited Visits (Within 10 days (routine)) - Pending Review Specialty Diagnoses / Procedures Referred By Mark delgado Referred To Contact Hematology/Oncology / Hematology Oncology Diagnoses Von Willebrand's disease (HCC) Master Phan MD [address] [place] [id number] Referral ID Status Reason Start Date Expiration Date Visits Requested Visits Authorized [id number] Pending Review Specialty Services Required 03/28/[phone] Encounter Details Date Type Department Care Team (Late st Contact Info) Description 04/07/2024 2:30 PM EDT Telemedicine [place] [address] [place] [address] Biju Lyles MD [address] [place], [place] [address] [phone] Von Willebrand's disease (HCC)*; Nasal bleeding; Red blood cell abnormality; Micturition frequency Allergies Active Allergy Reactions Criticality Noted Date Comments Fluticasone Furoate Flushing Low 02/05/2020 Tolerates Flovent (fluticasone) inhaler Aspirin 07/27/2014 Bleeding Nsaids 12/27/2023 documented as of this encounter (statuses as of 04/07/2024) Medications Medication Sig Dispensed Refills Start Date [...] 1 Capsule before bedtime. 180 Capsule 3 4 Active Magnesium 80 MG Oral Tablet 225 mg am and 120 mg at night 4 Active Probiotic & Acidophilus Ex St Oral Capsule Take 1 Capsule by mouth daily. 4 Active Desmopressin Acetate 1.5 MG/ML Nasal Solution (Stimate)Indicati ons:Von Willebrand's disease (HCC),Nasal bleeding As needed -->nasal bleeding --> 150 mcg (1 spray) in each nostril (total dose: 300 mcg). Can repeat dose 12 hrs later and then daily for 2 more doses. 5 mL 6 4 Active Magnesium 80 MG Oral Tablet Take by mouth. Calm Gummie magnesium Citrate 1 gummie daily 04/07/20 24 Discontinued Gaviscon 80-14.2 MG Oral Tablet Chewable (Alum Hydroxide-Mag Trisilicate) Take by mouth 2 times a day as needed. 04/07/20 24 Discontinued DULoxetine HCl 60 MG Oral Capsule Delayed Release Particles (Cymbalta) Take 1 Capsule by mouth in the morning. 3 04/07/20 24 Discontinued NSS 0.9 % SOLN 50 mL with DESMOpressin 4 MCG/ML SOLN 0.3 mcg/kg Administer 0.3 mcg/kg intravenously once. As needed 04/07/20 24 Discontinued predniSONE 5 MG Oral Tablet (Deltasone) Take 1 Tablet by mouth in the morning. 90 Tablet 1 4 04/07/20 24 Discontinued documented as of this encounter (statuses as of 04/07/2024) Active Problems Problem Noted Date Diagnosed Date [...] as of this encounter (statuses as of 04/07/2024) Immunizations Name Administration Dates Next Due COVID-19 mRNA, LNP-s, No Pre serve, 2-Dose Series ([facility]) 06/23/2021 COVID-19, LNP-s, No Preserve , Kaz-sucrose, [...] Sign Reading Time Taken Comments Blood Pressure 124/82 04/07/2024 2:22 PM EDT Pulse 69 04/07/2024 2:22 PM EDT Temperature 36.6 C (97.8 F) 04/07/2024 2:22 PM ED T Respiratory Rate 16 04/07/2024 2:22 PM EDT Oxygen Saturation 99% 04/07/2024 2:22 PM EDT RA Inhaled Oxygen Concentration - - Weight 144.7 kg (319 lb) 04/07/2024 2:22 PM EDT Height 188 cm (6' 2") 04/07/2024 2:22 PM EDT Body Mass Index 40.96 04/07/2024 2:22 PM EDT documented in this encounter Functional Status Functional [...] No 02/04/2020 documented as of this encounter Patient Instructions * Patient Instructions* Biuj Lyles MD - 04/07/2024 3:58 PM EDT group home counselor nasal DDAVP and afrin If episodes of bleeding happens use DDAVP as directed and afrin, max 3 d total If bleeding not stopping go to the ED (max 20-30 min) Check labs after use ddavp several days later Check labs today Return in 4 weeks documented in this encounter Progress Notes * Biju Lyles MD - 04/07/2024 12:50 PM EDT Hematology/Oncology Outpatient Clinic Note [facility] HEMATOLOGY/ONCOLOGY [facility] [place] Patient location: CLINIC. I was not in a hospital or clinic location. After connecting through [employer] Website, patient was verified with two unique identifiers. Patient (or authorized legal insurance sales representative) was then informed that this was a Telemedicine visit and being conducted confidentially over secure lines. My office door was closed. No one else was in the room with me. Patient acknowledged consent and understanding of privacy and security of the Telemedicine visit, and gave permission to have atelemedicine presenter stay in the room in order to assist with the history and to conduct the examas needed. I informed the patient that I have reviewed their record in [employer] and presented the opportunity for them to ask any questions regarding the visit today. The patient agreed to participate. Name: Roger Cardona Jr. Date: 04/07/2024 CHIEF COMPLAINT: Roger Cardona Jr. is a 58 year old male here today for f/u visit. HISTORY OF PRESENT ILLNESS: 58-year-old man, with history of multiple medical problems including paroxysmal supraventricular tachycardia, von Willebrand disease, type IIa, esophageal issues, allergies, asthma, carpal tunnel on the left, arthritis of the carpometacarpal joint of the left thumb, chronic pain syndrome, myalgia, a rthralgia, osteoarthritis, chronic bilateral lower back pain, borderline testing for Lyme disease, fibromyalgia, low vitamin D, here for follow-up of von Willebrand disease. Dr. Phan saw the patient on November 08 2021. In terms of history, the patient originally was diagnosed with this condition as a child. The patient in 1977 had severe bleeding with an ulcer that required packed red blood cell and plasma transfusions. The patient had lab work tested in 1982 which showed an elevating bleeding time of 23 minutes, a factor VIII coagulant of 41%, ristocetin cofactor of 30%, and abnormal platelet aggregation studies with ristocetin at 23%. Testing was repeated in October 2023. Von Willebrand disease panel with collagen binding ratio was 0.12 which is low with lower limit of normal being 0.5. Factor VIII activity was low at 43 with a lower limit of normal at 50. Von Willebrand antigen levels were normal at 83. Ristocetin cofactor testing was 17 with a lower limit of normal of 42%. Patient had multimer testing which revealed that therewas an abnormal multimeric composition a von Willebrand factor antigen with absence of largest multimers. With this information with the above finding of low platelet aggregation with ristocetin the patient has a von Willebrand disease type IIa. Patient has been treated with DDAVP prior to surgeries and dental extractions with success with no bleeding. Has had success getting 18 mcg of DDAVP and 100 cc normal saline over 30 minutes prior to surgery. Has pain all over, seeing rheum for fibromylagia. Both joints and muscles hurt. Muscles spasm often. Using magnesium which helps the muscle pain. Urinating all the time, every hour. Using bathroom 3x a night. Energy is not normal, low. Appetite is not great. Intentjonal WL from 363-->314--->319 lb. No f/c/ledesma/sweats. No dyspnea or cough. No chest pain or palpitations. No stomach pain. No N/V. No d/c. No blood in the stool or black stools. No blood in the urine. No pain with urination, no increased frequency of urination. Worsened leg swelling with lyrica, pt thinks. No bleeding or bruising normally except some bruisingon arms and legs. No numbness or weakness. No lumps or bumps and no neck swelling. Does have migraines, uses imitrex which helps Cscope - due in Jul 2024, in 2013 was nl EGF - Impression: - Normal upper third of esophagus. Biopsied. - LA Grade C reflux esophagitis. Biopsied. - Normal stomach. - Normal examined duodenum. Recommendation: - Discharge patient to home. - Await pathology results. - Return to referring physician as previously scheduled. Amilcar Carrington MD 03/05/2020 2:53:05 PM Prostate = No recent psa FH: Mother - lymphoma - around 60 Denies blood disorders in the family Denies blood clots in the family Pgm - stroke Pgf- heart disease, ppm, [place] in 70s SH: Never smoker Rare alcohiol Mj in past Used to work in [employer] work - 35 yrs 1 - daughter 32 1 granddaughter 4 yrs old All: Aspirin bleeding (cannot tolerate 81 mg daily due to nosebleeds) Not Specified 07/27/2014 Bleeding Nsaids Not Specified 12/27/2023 Arnuity Ellipta [Fluticasone Furoate] Flushing Low 02/05/2020 Tolerates Flovent (fluticasone) inhaler ___ INTERVAL HISTORY: Roger Cardona Jr. is a 58 year old male with a history as outlined above. Currently here for f/u visit today. Current Outpatient Medications Medication Sig Dispense Refill Albuterol Sulfate 108 (90 Base) MCG/ACT AEPB [...] 1 Capsule by mouth in the morning. Montelukast Sodium 10 MG Oral Tablet Take 1 Tablet by mouth at bedtime. Omeprazole 20 MG Oral Capsule Delayed Release (PriLOSEC) once a day Cefuroxime Axetil 500 MG Oral Tablet (Ceftin) Take 1 Tablet by mouth in the morning and 1 Tablet before bedtime. 180 Tablet 3 Vitamin D 125 MCG (5000 UT) Oral Capsule Take by mouth. Taking 10,000 ui NSS 0.9 % SOLN 50 mL with DESMOpressin 4 MCG/ML SOLN 0.3 mcg/kg Administer 0.3 mcg/kg intravenouslyonce. As needed Pregabalin 50 MG Oral Capsule (Lyrica) Take 1 Capsule by mouth in the morning and 1 Capsule before bedtime. 180 Capsule 3 Magnesium 80 MG Oral Tablet 225 mg am and 120 mg at night Probiotic & Acidophilus Ex St Oral Capsule Take 1 Capsule by mouth daily. No current facility-administered medications for this visit. REVIEW OF SYSTEMS: 12 point ROS performed and negative with exception of what is mentioned in the hpi. OBJECTIVE: Filed Vitals: 04/07/24 1422 BP: 124/82 Pulse: 69 Resp: 16 Temp: 36.6 C (97.8 F) TempSrc: Tympanic SpO2: 99% Weight: (!) 144.7 kg (319 lb) Height: 1.88 m (6' 2") Wt Readings from Last 5 Encounters: 04/07/24 (!) 144.7 kg (319 lb) 12/27/23 (!) 142.4 kg (314 lb) 09/04/23 (!) 150.6 kg (332 lb) 06/25/23 (!) 159.2 kg (351 lb) 04/19/23 (!) 161.9 kg (357 lb) Is the pt having any pain related to today's visit?: No (04/07/24 5766) PHYSICAL EXAM: Gen: coop, alert Neck: Supple, no tracheal deviation HEENT: MMM, no lesions seen, NCAT Chest: Normal excursions, no obvious wheezing CV: No JVD Abd: Soft, NTND Spine: No deviations seen Ext: L>R 1+ edema Neuro: Grossly normal sensory and motor fcn MSK: Nl rom Skin: Venous stasis changes in lower legs Psych: Normal mood and affect LABS: Results for orders placed or performed in visit on 07/26/23 25-HYDROXY VITAMIN D Result Value Ref Range Vitamin D, 25-Hydroxy, Serum 29 (L) 30 - 50 ng/mL HNK1 (CD57) PROFILE ([facility] ONLY) Result Value Ref Range % CD8-/CD57+ Lymphs 5.0 2.0 - 17.0 % Abs CD8-CD57+ Lymphs 100 60 - 360 /uL WBC 5.1 3.4 - 10.8 x10E3/uL RBC 5.16 4.14 - 5.80 x10E6/uL HGB 13.5 13.0 - 17.7 g/dL HCT 41.2 37.5 - 51.0 % MCV 80 79 - 97 fL MCH 26.2 (L) 26.6 - 33.0 pg MCHC 32.8 31.5 - 35.7 g/dL RDW 13.9 11.6 - 15.4 % PLT 241 150 - 450 x10E3/uL Neutrophils 50 Not Estab. % Lymphs 38 Not Estab. % Monocytes 6 Not Estab. % Eos 5 Not Estab. % Basos 1 Not Estab. % Neutrophils Abs 2.5 1.4 - 7.0 x10E3/uL Lymphs Abs 2.0 0.7 - 3.1 x10E3/uL MonocytesAbs 0.3 0.1 - 0.9 x10E3/uL Eos Abs 0.3 0.0 - 0.4 x10E3/uL Baso Abs 0.1 0.0 - 0.2 x10E3/uL Immature Granulocytes 0 Not Estab. % Immature Grans Abs 0.0 0.0 - 0.1 x10E3/uL LYME DISEASE, LINE BLOT, BLOOD ([facility] ONLY) Result Value Ref Range IgG P93 Ab Absent IgG P66 Ab Absent IgG P58 Ab Absent IgG P45 Ab Absent IgG P41 Ab Absent IgG P39 Ab Absent IgG P30 Ab Absent IgG P28 Ab Absent IgG P23 Ab Absent IgG P18 Ab Absent Lyme IgG WB Interp Negative IgM P41 Ab Absent IgM P39 Ab Present (A) IgM P23 Ab Absent Lyme IgM WB Interp Negative COMPREHENSIVE METABOLIC PANEL Result Value Ref Range Sodium 141 135 - 146 mmol/L Potassium 4.4 3.5 - 5.1 mmol/L Chloride 109 (H) 98 - 107 mmol/L CO2 - ECH 25 22 - 32 mmol/L Anion Gap 11 10 - 20 mmol/L BUN - ECH 13 6 - 20 mg/dL Creatinine 0.9 0.7 - 1.2 mg/dL Estimated Glomerular Filtration Rate 98 BUN/Creatinine Ratio 14.4 12.0 - 20.0 Glucose 106 70 - 120 mg/dL Calcium 9.2 8.4 - 10.2 mg/dL AST/SGOT 29 10 - 50 U/L Alkaline Phosphatase 51 50 - 153 U/L ALT/SGPT 29 10 - 50 U/L Bilirubin, Total 0.40 0.00 - 1.20 mg/dL Protein, Total 7.2 6.0 - 8.3 g/dL Albumin 4.5 3.8 - 5.0 g/dL Globulin 2.7 1.8 - 3.8 g/dL Albumin/Globulin Ratio 1.7 1.0 - 2.4 ANAPLASMA PHAGOCYTOPHILUM DNA, QL REAL-TIME PCR Result Value Ref Range A phagocytophilum PCR Negative Negative BABESIA MICROTI ANTIBODIES (IGG,IGM) Result Value Ref Range B microti IgG B microti IgM Result Comment Comment BARTONELLA SPECIES AB(IGG,IGM) W/REFL TITER Result Value Ref Range B henselae IgG Negative Neg:<1:320 titer B henselae IgM Negative Neg:<1:100 titer B faith IgG Negative Neg:<1:320 titer B faith IgM Negative Neg:<1:100 titer CBC Result Value Ref Range WBC 5.2 4.0 - 10.5 K/uL RBC 5.16 4.70 - 6.00 HGB 13.1 (L) 13.5 - 18 g/dL HCT 40.5 (L) 42 - 52 % MCV 78.5 78.0 - 100.0 fl MCH 25.4 (L) 27.0 - 31.0 pg MCHC 32.4 (L) 32.5 - 36.0 g/dL RDW 14.9 (H) 11.5 - 14.0 % PLT 228 150 - 450 K/uL MPV 8.3 6.5 - 9.5 fL DIFFERENTIAL, AUTOMATED Result Value Ref Range Neutrophil % 49.8 37.0 - 63.0 % Lymphocyte % 37.1 (H) 33.0 - 37.0 % Monocyte % 5.9 0.0 - 9.0 % Eosinophil % 5.6 0.0 - 7.0 % Basophils % 1.6 (H) 0.0 - 1.0 % Neutrophil # 2.6 1.5 - 6.6 K/uL Lymphocyte # 1.9 1.5 - 3.5 K/uL Monocyte # 0.3 0.0 - 1.0 K/uL Eosinophil # 0.3 0.0 - 0.7 K/uL Basophils # 0.1 0.0 - 0.1 K/uL Nucleated RBC Percent 0.1 (H) <0.01 % IMPRESSION/PLAN: 58-year-old man, with history of multiple medical problems including paroxysmal supraventricular tachycardia, von Willebrand disease, type IIa, esophageal issues, allergies, asthma, carpal tunnel on the left, arthritis of the carpometacarpal joint of the left thumb, chronic pain syndrome, myalgia, a rthralgia, osteoarthritis, chronic bilateral lower back pain, borderline testing for Lyme disease, fibromyalgia, low vitamin D, here for follow-up of von Willebrand disease. #Von Willebrand Disease Type 2a - IV DDAVP prior to surgeries and procedures 18 mcg 30-60 min prior ro procedure IV #nasal bleeding episodes - discussed referral to ENT - pt declines - ok to use nasal DDAVP when nosebleed starts, do not use more than 3 days, drink gatorade each dayif uses 3 days and check cmp a few days later - ok to use afrin in short term only for nasal bleeding, otc, do not use more than 3 days Vaseline daily helps Ensure using humidifier in house #low mchc - check iron, ferritin, b12, folate, mma and homocysteine #psa - frequent urination Pros ca screen I had a discussion with Roger Cardona Jr. regarding the plan of care, treatment and other issues. Rtc 4 weeks, home video visit Biju Lyles MD I spent a total of Greater than 55 mins (exact time 75 mins) on the date of service in preparation,delivery, and documentation of the care provided to Roger Brendan Veliz excluding any time spent inthe performance of separately billed services. documented in this encounter Plan of Treatment Upcoming Encounters Date Type Department Care Team (Late st Contact Info) Description 05/05/2024 10:00 AM EDT Office Visit Rheumatology, [address] Floor [place] [phone] Kerrie Hayes MD [address] [place] [address] [place] [phone] Pending Results Name Type Priority Associated Diagnoses Date /Time IRON SCREEN, INCLUDING TIBC Lab Routine Red blood cell abnormality 04/07/2024 4:27 PM EDT FERRITIN Lab Routine Red blood cell abnormality 04/07/2024 4:27 PM EDT VITAMIN B12 Lab Routine Red blood cell abnormality 04/07/2024 4:27 PM EDT FOLIC ACID Lab Routine Red blood cell abnormality 04/07/2024 4:27 PM EDT METHYLMALONIC ACID, SERUM Lab Routine Red blood cell abnormality 04/07/2024 4:27 PM EDT HOMOCYSTEINE Lab Routine Red blood cell abnormality 04/07/2024 4:27 PM EDT PSA Lab Routine Micturition frequency 04/07/2024 4:27 PM EDT COMPREHENSIVE METABOLIC PANEL Lab STAT Von Willebrand's disease (HCC) Red blood cell abnormality Micturition frequency 04/07/2024 4:27 PM EDT Scheduled Orders Name Type Priority Associated Diagnoses Orde r Schedule IRON SCREEN, INCLUDING TIBC Lab Routine Red blood cell abnormality Expected: 04/07/2024, Expires: 04/07/2025 FERRITIN Lab Routine Red blood cell abnormality Expected: 04/07/2024, Expires: 04/07/2025 VITAMIN B12 Lab Routine Red blood cell abnormality Expected: 04/07/2024, Expires: 04/07/2025 FOLIC ACID Lab Routine Red blood cell abnormality Expected: 04/07/2024, Expires: 04/07/2025 METHYLMALONIC ACID, SERUM Lab Routine Red blood cell abnormality Expected: 04/07/2024, Expires: 04/07/2025 HOMOCYSTEINE Lab Routine Red blood cell abnormality Expected: 04/07/2024, Expires: 04/07/2025 PSA Lab Routine Micturition frequency Expected: 04/07/2024, Expires: 04/07/2025 COMPREHENSIVE METABOLIC PANEL Lab STAT Von Willebrand's disease (HCC) Red blood cell abnormality Micturition frequency Every 2 Weeks for 26 Occurrences starting 04/07/2024 until 04/07/2025 Scheduled Procedures Name Priority Associated Diagnoses Date/Ti [...] encounter Visit Diagnoses Diagnosis Von Willebrand's disease (HCC)- Primary Von Willebrand's disease Nasal bleeding Epistaxis Red blood cell abnormality Other abnormality of red blood cells Micturition frequency Urinary frequency documented in this encounter Advance Directives * [...] Advance Directives occurred with: Patient Care Teams Automatic Bow Maker Machine Tender Relationship Specialty Start Date End Date Jennifer Torrez PA-C [address] [place] [address] [place] [id number] PCP - General Physician Vp Legal Affairs 12/31/18 documented as of this encounter
--- OUTSIDE RECORDS SUMMARY | 2024-04-24 07:04 | External Medical Summary | Summary of Care ---
Author Name Unknown Organization [facility] Address [address] [place] [address] Phone [phone] Care Team Providers Care Equipment Mechanic Name Role Phone Jennifer Torrez PA-C Primary Care Provid er Reason for Visit * Reason Comments Outpatient Testing Encounter Details Date Type Department Care Team (Late st Contact Info) Description 04/07/2024 4:20 PM EDT Laboratory Laboratory, [facility] [address] [place] [address] [place], Lab [address] [place] [address] Red blood cell abnormality; Micturition frequency; Von Willebrand's disease (HCC); Nasal bleeding Allergies [...] 05/05/2024 10:00 AM EDT [facility] [address] [place] [phone] Kerrie Hayes MD [address] [place] [address] [place] [phone] Pending Results Name Type Priority Associated Diagnoses [...] Micturition frequency 04/07/2024 4:27 PM EDT Scheduled Procedures Name Priority Associated Diagnoses Date/Ti me COLONOSCOPY FLEXIBLE PROXIMA L DIAGNOSTIC Recall Special screening for malignant neoplasms, colon Health Maintenance Due Date Last Done Comments Lipid Panel 1963 Depression Screening 1975 HIV Screening 1978 Hepatitis C Screening 1981 Cologuard 2008 Fecal Occult Blood Test 2008 Sigmoidoscopy 2008 Zoster Vaccines (2 of 2) 12/22/2021 10/27/2021 *SPIROMETRY ONCE FOR ASTHMA-ADULT 07/13/2022 COVID-19 Vaccine (6 - 2022- season) 2023 05/10/2022, 03/01/2022, 06/23/2021, [...] Not on filedocumented as of this encounter Procedures Procedure Name Priority Date/Time Associated Diagnosis Comments DIFFERENTIAL, AUTOMATED Routine 04/07/2024 4:27 PM EDT Von Willebrand's disease (HCC) Nasal bleeding Red blood cell abnormality CBC Routine 04/07/2024 4:27 PM EDT Von Willebrand's disease (HCC) Nasal bleeding Red blood cell abnormality CBC Routine 04/07/2024 4:27 PM EDT Von Willebrand's disease (HCC) Nasal bleeding Red blood cell abnormality documented in this encounter Results * DIFFERENTIAL, AUTOMATED (04/07/2024 4:27 PM EDT) WBC 5.75 4.00 - 10.80 K/uL 04/07/2024 4:36 PM EDT LABORATORY [facility] Neutrophils % 53.5 40.0 - 75.0 % 04/07/2024 4:36 PM EDT LAB[facility]ATORY [facility] Lymphocytes % 35.0 18.0 - 42.0 % 04/07/2024 4:36 PM EDT LAB[facility]ATORY [facility] Monocytes % 5.7 1.0 - 11.0 % 04/07/2024 4:36 PM EDT LAB[facility] Eosinophils % 4.0 0.0 - 6.0 % 04/07/2024 4:36 PM EDT LAB[facility]ORY [facility] Basophils % 1.6 0.0 - 2.0 % 04/07/2024 4:36 PM EDT LAB[facility]ATORY [facility] Immature Granulocytes % 0.2 0.0 - 2.0 % 04/07/2024 4:36 PM EDT LAB[facility]ATORY [facility] Absolute Neutrophils 3.08 1.80 - 7.70 K/uL 04/07/2024 4:36 PM EDT LABORATORY [facility] Absolute Lymphocytes 2.01 1.00 - 4.80 K/ul 04/07/2024 4:36 PM EDT LABORATORY [facility] Absolute Monocytes 0.33 0.00 - 1.10 K/uL 04/07/2024 4:36 PM EDT LABORATORY [facility] Absolute Eosinophils 0.23 0.00 - 0.70 K/uL 04/07/2024 4:36 PM EDT LABORATORY [facility] Absolute Basophils 0.09 0.00 - 0.20 K/uL 04/07/2024 4:36 PM EDT LABORATORY [facility] Absolute Immature Granulocytes 0.01 0.00 - 0.20 K/uL 04/07/2024 4:36 PM EDT LABORATORY [facility] Blood Venous blood specimen / Unknown Venipuncture / Unknown 04/07/2024 4:27 PM EDT 04/07/2024 4:33 PM EDT Biju Lyles MD LAB BLOOD ORDERABLE S LABORATORY [facility] [address] * (ABNORMAL) CBC (04/07/2024 4:27 PM EDT) WBC 5.75 4.00 - 10.80 K/uL 04/07/2024 4:36 PM EDT LABORATORY [facility] RBC 5.10 4.50 - 5.25 M/uL 04/07/2024 4:36 PM EDT LABORATORY [facility] HGB 13.0(L) 14.0 - 16.8 g/dL 04/07/2024 4:36 PM EDT LABORATORY GM HCT 42.0 40.0 - 48.4 % 04/07/2024 4:36 PM EDT LABORATORY GM MCV 82.4 82.0 - 99.5 fL 04/07/2024 4:36 PM EDT LABORATORY GM MCH 25.5 27.0 - 34.0 pg 04/07/2024 4:36 PM EDT LABORATORY GM MCHC 31.0 32.0 - 36.0 g/dL 04/07/2024 4:36 PM EDT LABORATORY [facility] RDW 13.2 11.5 - 15.5 % 04/07/2024 4:36 PM EDT LABORATORY GM PLT 240 140 - 400 K/uL 04/07/2024 4:36 PM EDT LABORATORY [facility] MPV 9.5 6.6 - 11.1 fL 04/07/2024 4:36 PM EDT LABORATORY [facility] nRBCs 0 <=0 /100 WBCs 04/07/2024 4:36 PM EDT LABORATORY [facility] Blood Venous blood specimen / Unknown Venipuncture / Unknown 04/07/2024 4:27 PM EDT 04/07/2024 4:33 PM EDT Biju Lyles MD LAB BLOOD ORDERABLE S LABORATORY [facility] [address] documented in this encounter Visit Diagnoses Diagnosis Red blood cell abnormality Other abnormality of red blood cells Micturition frequency Urinary frequency Von Willebrand's disease (HCC) Von Willebrand's disease [...] Advance Directives occurred with: Patient Care Teams Equipment Mechanic Relationship Specialty Start Date End Date Jennifer Torrez PALupilloC [address] [facility] [place] [id number] PCP - General Physician Handle Attacher 12/31/18 documented as of this encounter
--- OUTSIDE RECORDS SUMMARY | 2024-04-24 07:04 | External Medical Summary ---
Author Name Unknown Address Unknown Organization : Laboratory Report Ordering Provider Test Date Status MAYCO REYES 04/07/2024 16:27:06 Final Observation Date Value Abnormality Reference (Units ) Status WBC, Total 04/07/2024 16:27:06 5.75 4.00-10.80 (K/uL) Final RBC 04/07/2024 16:27:06 5.10 4.50-5.25 (M/uL) Final Hemoglobin 04/07/2024 16:27:06 13.0 Below low normal 14.0-16.8 (g/dL) Final HCT 04/07/2024 16:27:06 42.0 40.0-48.4 (%) Final MCV 04/07/2024 16:27:06 82.4 82.0-99.5 (fL) Final MCH 04/07/2024 16:27:06 25.5 27.0-34.0 (pg) Final MCHC 04/07/2024 16:27:06 31.0 32.0-36.0 (g/dL) Final RDW 04/07/2024 16:27:06 13.2 11.5-15.5 (%) Final Platelets 04/07/2024 16:27:06 240 140-400 (K/uL) Final MPV 04/07/2024 16:27:06 9.5 6.6-11.1 (fL) Final Nucleated erythrocytes/100 leukocytes [Ratio] in Blood by Automated count 04/07/2024 16:27:06 0 <=0 (/100 WBCs) Final Performing Location
--- OUTSIDE RECORDS SUMMARY | 2024-04-24 07:04 | External Medical Summary | Summary of Care ---
Author Name Unknown Organization [facility] Address [address] [place] [address] Phone [phone] Care Team Providers Care Technology Education Instructor Name Role Phone Jennifer Torrez PA-C Primary Care Provid er Reason for Visit * Reason Comments NEW PATIENT * Evaluate & Treat - Unlimited Visits (Within 10 days (routine)) - Pending Review Specialty Diagnoses / Procedures Referred By Mark delgado Referred To Contact Hematology/Oncology / Hematology Oncology Diagnoses Von Willebrand's disease (HCC) Master Phan MD [address] [place] [id number] Referral ID Status Reason Start Date Expiration Date Visits Requested Visits Authorized [id number] Pending Review Specialty Services Required 03/28/[phone] Encounter Details Date Type Department Care Team (Late st Contact Info) Description 04/07/2024 2:30 PM EDT Telemedicine [place] [address] [address] [place] [address] Biju Lyles MD [address] [place], [place] [address] [place] [phone] Von Willebrand's disease (HCC)*; Nasal bleeding; Red [...] mRNA, LNP-s, No Pre serve, 2-Dose Series ([employer]) 06/23/2021 COVID-19, LNP-s, No Preserve , Kaz-sucrose, [...] this encounter Patient Instructions * Patient Instructions* Biju Lyles MD - 04/07/2024 3:58 PM EDT technical support professional nasal DDAVP and afrin If episodes of [...] 12:50 PM EDT Hematology/Oncology Outpatient Clinic Note [facility] HEMAT[place] [facility] [place]. I was not in a hospital or clinic location. After connecting through [employer] software, patient was verified with two unique identifiers. Patient (or authorized legal renewals representative) was then informed that this was [...] that I have reviewed their record in [facility] and presented the opportunity for them to [...] Pgm - stroke Pgf- heart disease, ppm, [place] in 70s SH: Never smoker Rare alcohiol Mj in past Used to work in [employer] work - 35 yrs 1 - daughter [...] pain related to today's visit?: No (04/07/24 1312) PHYSICAL EXAM: Gen: coop, alert Neck: Supple, [...] 50 ng/mL HNK1 (CD57) PROFILE ([facility] ONLY) Result Value Ref Range % CD8-/CD57+ [...] von Willebrand disease. #Von Willebrand Disease Type Iia - IV DDAVP prior to surgeries and [...] 05/05/2024 10:00 AM EDT Office Visit Rheumatology, [address] Floor [place] [phone] Kerrie Hayes MD [address] [place] [address] [place] [phone] Scheduled Orders Name Type Priority Associated Diagnoses [...] for 26 Occurrences starting 04/07/2024 until 04/07/2025 CBC WITH WBC DIFFERENTIAL Lab Routine Von Willebrand's disease (HCC) Nasal bleeding Red blood cell abnormality Expected: 04/07/2024, Expires: 04/07/2025 Scheduled Procedures Name Priority Associated Diagnoses [...] Advance Directives occurred with: Patient Care Teams Technology Education Instructor Relationship Specialty Start Date End Date Jennifer Torrez PA-C [address] [facility] [place] [address] PCP - General Physician Clinical Research Specialist 12/31/18 documented as of this encounter
--- OUTSIDE RECORDS SUMMARY | 2024-04-24 07:04 | External Medical Summary ---
Author Name Unknown Address Unknown Organization : Laboratory Report Ordering Provider Test Date Status MAYCO REYES 04/07/2024 16:27:06 Final Observation Date Value Abnormality Reference (Units ) Status METHYLMALONIC ACID 04/07/2024 16:27:06 426 Above high normal 69-390 (nmol/L) Final Serum methylmalonic acid (MM A) levels are used to
diagnose and monitor several rare inborn errors of
metabolism, including methylmalonic aciduria. The
enzymatic conversion of MMA to succinic acid requires
vitamin B12 (adenosyl-cobalamin) as a cofactor. Serum
MMA levels are also used for assessing functional
vitamin B12 deficiency. Vitamin B12 is essential for
neurodevelopment, particularly early in
. Undiagnosed maternal vitamin B12 deficiency
may be associated with adverse / outcomes,
such as neural tube defects and intrauterine growth
restriction.
[facility] utilized Multi-Modal Decomposition
(MMD) analysis to establish first and second trimester-
specific MMA reference intervals in , as given
below:
MMA, First trimester (<13 wks gestation): 58-167 nmol/L
MMA, Second trimester (13-23 wks gestation):
63-241 nmol/L
This test was developed and its analytical performance
characteristics have been determined by [facility]. It has not been cleared or approved by the
FDA. This assay has been validated pursuant to the CLIA
regulations and is used for clinical purposes.

Test Performed at:
[facility]
[address] [facility]
[place], [place]
Keith Nuñez M.D., Ph.D.,Director of Laboratories Performing Location
--- OUTSIDE RECORDS SUMMARY | 2024-04-24 07:04 | External Medical Summary ---
Author Name Unknown Address Unknown Organization K01:LABORATORY [facility] [place] - [address] [place] [address] Laboratory Report Ordering Provider Test Date Status MAYCO REYES 04/07/2024 16:27:06 Final Observation Date Value Abnormality Reference (Units ) Status Iron 04/07/2024 16:27:06 32 Below low normal 45-176 (ug/dL) Final Iron-binding capacity 04/07/2024 16:27:06 327 250-425 (ug/dL) Final Transferrin Sat % 04/07/2024 16:27:06 10 Below low normal 15-55 (%) Final Performing Location LABORATORY C - [address] [place] [address]
--- OUTSIDE RECORDS SUMMARY | 2024-04-24 07:04 | External Medical Summary ---
Author Name Unknown Address Unknown Organization K01:LABORATORY [facility] [place] - [address] [place] [address] Laboratory Report Ordering Provider Test Date Status MAYCO REYES 04/07/2024 16:27:06 Final Observation Date Value Abnormality Reference (Units ) Status Folic Acid 04/07/2024 16:27:06 17.3 >4.5 (ng/ mL) Final Performing Location [facility] [address] [facility] [address]
--- OUTSIDE RECORDS SUMMARY | 2024-04-24 07:04 | External Medical Summary ---
Author Name Unknown Address Unknown Organization K01:[facility]ORATORY [facility] - [address] [place] [address] Laboratory Report Ordering Provider Test Date Status MAYCO REYES 04/07/2024 16:27:06 Final Observation Date Value Abnormality Reference (Units ) Status Ferritin 04/07/2024 16:27:06 64 30-400 (ng /mL) Final Performing Location [facility] [address] [facility] [address]
--- OUTSIDE RECORDS SUMMARY | 2024-04-24 07:04 | External Medical Summary | Summary of Care ---
Author Name Unknown Organization [facility] Address [address] [place] [address] Phone [phone] Care Team Providers Care Fitness Instructor Name Role Phone Jennifer Torrez PA-C Primary Care Provid er Reason for Visit * Reason Onset Date Comments Appointment 04/08/2024 Encounter Details Date Type Department Care Team (Late st Contact Info) Description 04/08/2024 Telephone Hematology Oncology, [place] [address] [address] [place] [address] Biju Lyles MD [address] [place] [phone] Appointment Allergies Active Allergy Reactions Criticality [...] AM EDT Office Visit Rheumatology, [facility] [address] [place] [address] [address] [place] [phone] Kerrie Hayes MD [address] [place] [address] [place] [address] Scheduled Procedures Name Priority Associated Diagnoses Date/Ti [...] Advance Directives occurred with: Patient Care Teams Fitness Instructor Relationship Specialty Start Date End Date Jennifer Torrez PA-C [address] [place] [address] [place] [address] PCP - General Physician Executive Coordinator 12/31/18 documented as of this encounter
--- OUTSIDE RECORDS SUMMARY | 2024-04-24 07:04 | External Medical Summary ---
Author Name Unknown Address Unknown Organization : Laboratory Report Ordering Provider Test Date Status MAYCO REYES 04/07/2024 16:27:06 Final Observation Date Value Abnormality Reference (Units ) Status Homocysteine 04/07/2024 16:27:06 11.2 <11.4 ( umol/L) Final Homocysteine is increased by functional deficiency of
folate or vitamin B12. Testing for methylmalonic acid
differentiates between these deficiencies. Other causes
of increased homocysteine include renal failure, folate
antagonists such as methotrexate and phenytoin, and
exposure to nitrous oxide.
Justin Frankel, et al. [employer]. 1999;131(5):331-9.

Test Performed at:
[facility]
[address] [facility]
[place] [address]
Keith Nuñez M.D., Ph.D.,Director of Laboratories Performing Location
[2024-04-24] MEDS: ACETAMINOPHEN 500 MG TAB PO SCH (07:17)
[2024-04-24] MEDS: oxyCODONE HCL 10 MG TABCR (OxyCONTIN) PO SCH (07:17)
[2024-04-24] MEDS: LR 60ML/HR IV SCH (07:18)
[2024-04-24] MEDS: GABAPENTIN 600 MG DOSE PO SCH (07:18)
[2024-04-24] MEDS: METOCLOPRAMIDE HCL 10 MG TABLET PO SCH (07:18)
[2024-04-24] MEDS: FAMOTIDINE 20 MG TAB PO SCH (07:18)
[2024-04-24] MEDS: DESMOPRESSIN ACETATE 18 MCG in SODIUM CHLORIDE 0.9% 50 ML IV ONE (07:19)
[2024-04-24] MEDS: LR 15ML/HR IV SCH (07:19)
--- NOTE | 2024-04-24 07:30 | History & Physical Bridge Note ---
Date of Service April 24, 2024 History & Physical Bridge Note I have examined the patient, reviewed the History & Physical and in the interval since the performance of the History & Physical I have noted the following changes of clinical significance: no changes noted
[2024-04-24] MEDS ORDERED: fentaNYL citrate PF 100 MCG/2 ML VIAL ONE ×2 (07:40→08:46)
[2024-04-24] MEDS ORDERED: MIDAZOLAM HCL 1 MG/ML 2ML VIAL ONE (07:40)
[2024-04-24] MEDS ORDERED: PROPOFOL IV EMULSION 10 MG/ML 20 ML VIAL IV ONE ×2 (07:54→08:47)
[2024-04-24] MEDS ORDERED: ONDANSETRON INJ 2 MG/ML 2 ML VIAL ONE ×2 (07:54→08:56)
[2024-04-24] MEDS: TRANEXAMIC ACID 1,000 MG **IV Pre-op IV SCH (08:16)
[2024-04-24] MEDS: ceFAZolin 3000MG 3,000 MG/72.5 ML BAG IV SCH (08:22)
[2024-04-24] MEDS ORDERED: ONDANSETRON INJ 2 MG/ML 2 ML VIAL IV PRN ×2 (08:23→12:30)
[2024-04-24] MEDS ORDERED: ePHEDrine sulfate 50 MG/ML AMP IV PRN (08:23)
[2024-04-24] MEDS ORDERED: ATROPINE SULFATE 0.1 MG/ML 10ML SYR IV PRN (08:23)
[2024-04-24] MEDS: ROPIV 0.5% 246mg, Ketorolac 30mg, EPINEPHrine 0.5mg in NSS INFIL SCH (08:54)
[2024-04-24] MEDS ORDERED: DEXAMETHASONE SOD INJ 4 MG/ML VIAL ONE (08:56)
[2024-04-24] MEDS ORDERED: KETAMINE HCL 10MG/ML SYR ONE (09:04)
[2024-04-24] MEDS ORDERED: diphenhydrAMINE 50 MG/ML VIAL ONE (09:19)
[2024-04-24] MEDS: TRANEXAMIC ACID 1,000 MG **IV Intra-op IV SCH (09:30)
--- NOTE | 2024-04-24 09:35 | Post Operative Brief Note ---
Immediate Post Op Note Date of Surgery April 24, 2024 Pre & Post Diagnosis Operation Date: 04/24/24 08:15 Pre-Op Diagnosis: Right Knee Degenerative Joint Disease Post-Op Diagnosis: Right Knee Degenerative Joint Disease I identified the patient and participated in the time-out.: Yes Procedure Operation Date: 04/24/24 08:15 Actual Procedures p Right Total Knee Replacement(Right) - Sascha Villagran MD Surgeon Sascha Villagran MD Guest Services Yuriy Valles PA-C Estimated Blood Loss 200 Findings Consistent with Post-Op Diagnosis Drains Hemovac Drain
[2024-04-24] MEDS: fentaNYL citrate PF 100 MCG/2 ML VIAL IV PRN (10:39)
[2024-04-24] MEDS: HYDROmorphone INJ 2 MG/ML SYR/VIAL ONE ×2 (11:04→11:27)
[2024-04-24] MEDS ORDERED: MAGNESIUM HYDROXIDE SUSP 30 ML UDC PO PRN (12:30)
[2024-04-24] MEDS ORDERED: NALOXONE HCL 0.4 MG/1 ML VIAL/CARP IV PRN (12:30)
[2024-04-24] MEDS ORDERED: SUMAtriptan succinate 50 MG TAB PO PRN (12:30)
[2024-04-24] MEDS ORDERED: bisacodyL 10 MG SUPP PR PRN (12:30)
[2024-04-24] MEDS ORDERED: METOCLOPRAMIDE HCL INJ 5 MG/ML 2 ML VIAL IV PRN (12:30)
[2024-04-24] MEDS ORDERED: ALBUTEROL HFA 8 GM INHALER INH PRN (12:30)
[2024-04-24] MEDS: HYDROmorphone INJ 0.5 MG/0.5 ML SYR IV STA (12:32)
[2024-04-24] MEDS: SODIUM CHLORIDE 0.9% 1,000 ML IV SCH (13:29)
--- NOTE | 2024-04-24 14:25 | Operative Report ---
Post Operative Report Pre & Post Diagnosis Operation Date: 04/24/24 08:15 Pre-Op Diagnosis: Right Knee Degenerative Joint Disease Morbid obesity BMI 41 Post-Op Diagnosis: Right Knee Degenerative Joint Disease Morbid obesity BMI 41 I identified the patient and participated in the time-out.: Yes Procedure Operation Date: 04/24/24 08:15 Actual Procedures p Right Total Knee Replacement(Right) - Sascha Villagran MD Surgeon Sascha Villagran MD Sprinkler Fitter Helper Yuriy Valles PA-C Estimated Blood Loss 200 Findings Consistent with Post-Op Diagnosis patient had severe degenerative changes throughout the knee. He also had moderate bleeding due to von Willebrand's disease and general anesthesia Patient had a morbidly obese body habitus, this combined with his von Willebrand's and bleeding added an element of increased difficulty and increased time to the surgical procedure. Specimens bone and cartilage fragments Indications components used: Ramirez [employer] Nephew journey 2 posterior stabilized knee system: Femur size 7 with Oxinium coating, tibia by 6 x 13 with a tibial extension stem due to size, patella size 38 oval. Description of Procedure Following satisfactory general anesthesia the patient was supine on the operating room table. A tourniquet was placed but not inflated. The lower extremity was prepared with ChloraPrep and draped sterilely. A surgical timeout was performed. A midline incision was made. The incision was deepened through a fairly large subcutaneous fat layer. There was multiple bleeding points. Hemostasis was difficult but was obtained. A median parapatellar arthrotomy was performed. Again additional bleeding with required increased time. The knee showed the changes noted above. Attention was turned to the patella. The patella was freehand cut and sized for 38 button. This did enhance exposure to the lateral side of the knee and relax the extensor mechanism. The cruciate ligaments were excised. The patient matched femoral block was applied. Femoral distal rotation and resection resetting completed. The 4-in-1 block was used to finish preparation of the femur. The tibial meniscal fragments were excised. The patient matched tibial block was applied. Tibial resection was completed. Again exposure was difficult because of the patient's large body habitus and bleeding. Soft tissue balancing was completed in flexion and extension. A trial reduction with the above- mentioned components was performed. This showed reasonable tensioning on the collateral ligaments stable range of motion from 0 to about 100 degrees limited by the size of the patient's leg. The patella did track well throughout. The patient continued to have oozing and bleeding due to hypertension von Willebrand's disease and his body habitus. It was decided to inflate the tourniquet for better cement technique. An Esmarch bandage was used to exsanguinate the knee and the tourniquet was inflated to 350 mmHg. The wound was irrigated and dried. Local anesthetic was placed. The components were then cemented using Librado Z be cement cementing the tibia first, femur second, and the patella third. When the cemented hardened the knee was checked and showed similar stability and tracking. The wound was irrigated with 500 cc of experience irrigation. A Hemovac drain was placed. The capsulotomy was closed with interrupted atowch-dr-ebjnw sutures of 1 Vicryl and a running suture of #1 strata fix. The tourniquet was then deflated at a time of 25 minutes total. The wound was irrigated again. The subcutaneous tissues were closed with 2 oh strata fix deep and 3 oh strata fix in a subcuticular fashion. Dermabond Prineo and a negative pressure wound dressing were applied. This was followed by compressive bandage. The patient was then returned to his bed and taken to the recovery room in stable condition. Note: Yuriy [place] was present and assisted throughout due to the complicated nature of this case. He help with preparation and set up an first coat operator throughout. He assisted with hemostasis and exposure throughout the procedure. He also closed the capsular subcutaneous and skin layers and applied the postop dressing. I attest to the content of the Intraoperative Record and any orders documented therein. Any exceptions are noted below.
--- NOTE | 2024-04-24 14:32 | Anesthesiology Progress Note ---
Date of Service April 24, 2024 Anesthesia Post Procedure Vital Signs Vital Signs: Temp Pulse Pulse Resp BP Pulse Ox O2 Del Method 04/24/24 14:20 36.4 C L 66 16 104/66 96 Room Air 04/24/24 13:18 36.6 C 59 L 14 138/75 99 Room Air 04/24/24 12:50 36.6 C 55 L 16 138/81 100 Room Air 04/24/24 12:24 36.6 C 58 L 16 153/85 H 100 Room Air 04/24/24 12:00 73 19 145/87 H 100 Nasal Cannula 04/24/24 11:50 75 15 147/75 H 100 Nasal Cannula 04/24/24 11:40 36.4 C L 71 15 144/77 H 100 Oxymask 04/24/24 11:30 67 15 111/73 100 Oxymask 04/24/24 11:20 72 23 136/74 100 Room Air 04/24/24 11:10 74 24 152/73 H 100 Room Air 04/24/24 11:00 64 20 139/78 100 Room Air 04/24/24 10:50 74 18 145/76 H 98 Oxymask 04/24/24 10:40 67 18 145/77 H 98 Oxymask 04/24/24 10:30 66 20 137/77 95 Oxymask 04/24/24 10:21 36.0 C L 76 19 137/78 95 Oxymask 04/24/24 07:13 36.8 C 58 L 20 157/81 H 96 Room Air O2 Flow Rate 04/24/24 14:20 04/24/24 13:18 04/24/24 12:50 04/24/24 12:24 04/24/24 12:00 4 04/24/24 11:50 2 04/24/24 11:40 4 04/24/24 11:30 15 04/24/24 11:20 0 04/24/24 11:10 0 04/24/24 11:00 0 04/24/24 10:50 4 04/24/24 10:40 4 04/24/24 10:30 4 04/24/24 10:21 4 04/24/24 07:13 Pain Intensity Right Knee: Pain Intensity: 3 Transfer of Care Handoff Completed per policy Notes Mental Status: alert / awake / arousable Patient Amnestic to Procedure: Yes Nausea / Vomiting: adequately controlled Pain: adequately controlled Airway Patency, RR, SpO2: stable & adequate BP & HR: stable & adequate Hydration State: stable & adequate Anesthetic Complications: no major complications apparent
[2024-04-24] MEDS: oxyCODONE HCL IR 5 MG TAB (IMMEDIATE RELEASE) PO PRN (17:03)
[2024-04-24] MEDS: PANTOprazole 40 MG TAB PO SCH (17:03)
[2024-04-24] MEDS: ceFAZolin 2000MG 2,000 MG/15 ML SYR IV SCH (17:03)
[2024-04-24] MEDS ORDERED: MAGNESIUM GLYCINATE 100 MG PO SCH (21:00)
[2024-04-24] MEDS: CETIRIZINE ORAL SOLN 1 MG/ML PO SCH (21:32)
[2024-04-24] MEDS: DOCUSATE SODIUM 100 MG CAP PO SCH (21:32)
[2024-04-24] MEDS: SENNA 8.6 MG TAB PO SCH (21:32)
[2024-04-24] MEDS: BECLOMETHASONE DIP HFA 80 MCG 10.6 GM INH INH SCH (21:33)
[2024-04-24] MEDS: PREGABALIN 50 MG CAP PO SCH (21:33)
[2024-04-24] MEDS: MELATONIN 3 MG TAB PO SCH (21:33)
[2024-04-24] MEDS: MAGNESIUM OXIDE 400 MG TAB PO SCH (21:39)
[2024-04-25] MEDS ORDERED: ACETAMINOPHEN 500 MG TAB PO PRN (06:52)
--- NOTE | 2024-04-25 07:13 | Orthopedic Progress Note ---
Date of Service April 25, 2024 Assessment & Plan (1) DJD (degenerative joint disease) of knee: Plan: Postop day 1 status post right total knee arthroplasty. PT/OT protocols. Weightbearing as tolerated. No overall range of motion exercises today with physical therapy secondary to history of von Willebrand's disease and limiting amount of bleeding. DVT prophylaxis-SCDs. Patient will be placed on 1 aspirin a day at home secondary to history of von Willebrand's. Pain management as written. Labs pending DC planning-plan for home health services upon discharge. Discontinue Hemovac today prior to DC. (2) Von Willebrand disease: Admission and Anticipated Discharge Date Admission Date: April 24, 2024 Subjective Postop day 1 Patient sitting up in bed awake and alert. No complaints this morning. Pain is controlled. Patient states that he did have a rough afternoon yesterday waking up from anesthesia and he had a bit more pain this time than before. He feels good this morning. Physical Exam Physical Exam: Dressings are clean, dry, and intact. Calves are soft nontender. Neurovascular appears intact. Toes are mobile. He has good dorsiflexion and plantarflexion of the right foot. Hemovac drainage was 50 cc from the previous shift. Results & Data Vital Signs (Past 12 Hours) Vital Signs Temp Pulse Resp BP Pulse Ox O2 Del Method 04/25/24 03:27 36.8 C 55 L 18 126/74 99 Room Air 04/24/24 22:36 36.8 C 60 18 121/68 97 Room Air 04/24/24 21:39 36.6 C 64 18 120/72 97 Room Air
[2024-04-25 07:49] VITALS: BP 128/76; RESP 16; TEMP 98.1; O2SAT 97
[2024-04-25] MEDS: CHOLECALCIFEROL 125 MCG (5,000 UNITS) TAB PO SCH (08:30)
[2024-04-25] MEDS: MONTELUKAST SODIUM 10 MG TABLET PO SCH (08:31)
[2024-04-25] MEDS: MULTIVITAMIN TAB PO SCH (08:31)
[2024-04-25 09:57] LABS: Hematocrit (blood only) 32.4 % (42.0-52.0); Hemoglobin 10.4 g/dl (14.0-18.0); Mean Corpuscular Hemoglobin 25.3 pg (25.0-34.0); Mean Corpuscular Hgb Conc 32.1 g/dL (32.0-36.0); Mean Corpuscular Volume 78.8 fL (80.0-100.0); Mean Platelet Volume 9.8 fL (9.4-12.4); Platelet Count 197 K/uL (130-400); RDW Coefficient of Variation 13.2 % (11.5-14.5); RDW Standard Deviation 37.9 fL (36.4-46.3); Red Blood Count 4.11 M/uL (4.70-6.10); White Blood Count 11.61 K/ul (4.8-10.8)
[2024-04-25 10:08] LABS: BUN Creatinine Ratio 18.9 (10-20); Calcium 8.1 mg/dl (8.6-10.3); Est GFR (African American) 106.5 ml/min; Est GFR (Non-African American) 91.9 ml/min; Potassium 4.1 mmol/L (3.5-5.1)
[2024-04-25 10:43] VITALS: PULSE 55
== END 2024-04-25 11:29 | disposition home health service (06) ==
LOC: ASU 06:49 → 3E 06:49